=== PATIENT | male | born 1960 | race Caucasian/White ===

== ENCOUNTER 2022-06-30 01:02 | Inpatient (IN) | payer BC, SELFPAY ==
[2022-06-30] MEDS ORDERED: Cefepime 2 GM VIAL ONE (01:42)
[2022-06-30 01:44] LABS: #Lymphocytes 0.5 thou/uL (1.20-3.40); #Monocytes 0.3 thou/uL (0.11-0.59); #Neutrophils 3.3 thou/uL (1.40-6.50); %Lymphocytes 11.2 % (21.0-51.0); %Monocytes 6.2 % (0.0-10.0); %Neutrophils 82.6 % (42.0-75.0); Hemoglobin 12.9 g/dL (14.0-18.0); Mean Corpuscular HGB CONC 32.7 g/dL (32.0-36.0); Mean Corpuscular Hemoglobin 30.7 pg (27.0-31.0); Mean Corpuscular Volume 93.8 fl (78.0-98.0); Mean Platelet Volume 9.3 fL (7.4-10.4); Platelet Count 219 10x3/uL (130-400); RBC Distribution Width 17.9 % (11.5-14.5)
[2022-06-30 02:02] LABS: Analyzer IN Cardio ER; Base Excess (BEa) -12.5 mEq/L (-2.0 to +3.0); Calcium, Ionized (arterial) 1.14 mmol/L (1.12-1.30); Carboxyhemoglobin (COHb) 0.1 gm% (0.0-3.0); Hemoglobin (Hb) 12.6 g/dL (14.0-18.0); O2 Tension (PaO2), arterial 72.2 mmHg (> 80.0); Potassium - ABG Lab 4.93 mmol/L (3.70-5.30); pH, Arterial 7.32 (7.35-7.45)
[2022-06-30 02:04] LABS: ALV-art Gradient 183.875 mmHg (0-20); Actual Bicarbonate (HCO3a) 11.7 mEq/L (22-28); CO2 Tension 23.3 mmHg (35.0-45.0); Puncture Site LRA
[2022-06-30 02:05] LABS: ALT (SGPT) 7 U/L (8-55); AST (SGOT) 16 U/L (5-34); Albumin 3.1 g/dL (3.4-4.8); Alkaline Phosphatase 59 U/L (40-110); Anion Gap 20 mmol/L (10-20); BUN (Urea Nitrogen) 103 mg/dL (8.4-25.7); Bilirubin, Total 0.7 mg/dL (0.2-1.2); Calc. Creatinine Clearance 0 mL/min (70-130); Calcium 8.2 mg/dL (7.8-10.44); Carbon Dioxide 13 mmol/L (23-31); Chloride 104 mmol/L (98-107); Estimated GFR 11; Globulin 2.5 g/dL (2.4-3.5); Glucose 210 mg/dL (80-115); Potassium 5.8 mmol/L (3.5-5.1); Protein, Total 5.6 g/dL (5.8-8.1); Sodium 131 mmol/L (136-145)
[2022-06-30 02:35] LABS: CKMB 4.4 ng/mL (0-6.6)
[2022-06-30] MEDS ORDERED: Aspirin Chewable 81 MG TAB ONE (02:47)
[2022-06-30] MEDS ORDERED: Insulin Regular 300 UNITS/3 ML VIAL ONE (03:21)
[2022-06-30] MEDS ORDERED: Vancomycin 1 GM/200 ML (FROZEN) BAG ONE (03:21)
[2022-06-30] MEDS ORDERED: Calcium Chloride 1 GM/10 ML Abboject SYRINGE ONE (03:21)
[2022-06-30] MEDS ORDERED: Ondansetron PF 4 MG/2 ML Vial IVP PRN (03:47)
[2022-06-30] MEDS ORDERED: Insulin Regular 300 UNITS/3 ML VIAL SC PRN (03:51)
[2022-06-30] MEDS ORDERED: Dextrose 50% Abboject 50 ML SYRINGE SLOW IVP PRN (03:51)
[2022-06-30] MEDS ORDERED: Dextrose 5% in Water 1,000 ML IV PRN (03:51)
[2022-06-30] MEDS ORDERED: HumaLOG 300 UNITS/3 ML VIAL SC PRN (03:51)
[2022-06-30] MEDS ORDERED: Sodium Bicarb 50 MEQ/50 ML Abboject 8.4% SYRINGE IVP SCH (04:30)
[2022-06-30] MEDS ORDERED: Sodium Bicarb 50 MEQ/50 ML VIAL IVP SCH (04:45)
[2022-06-30] MEDS: Dexamethasone 10 MG/ML VIAL SLOW IVP SCH ×2 (05:16→18:51)
[2022-06-30 05:42] VITALS: BMI 28.8
[2022-06-30 06:08] LABS: Troponin I 3.261 ng/mL (< 0.028)
[2022-06-30] MEDS: Sodium Bicarbonate 150 MEQ in Sodium Chloride 0.45% 1,000 ML IV SCH ×2 (06:15→20:04)
[2022-06-30] MEDS ORDERED: Tacrolimus 1 MG CAP PO SCH (09:00)
[2022-06-30 09:37] LABS: Anion Gap 16 mmol/L (10-20); BUN (Urea Nitrogen) 94 mg/dL (8.4-25.7); Calc. Creatinine Clearance 23 mL/min (70-130); Calcium 8.3 mg/dL (7.8-10.44); Carbon Dioxide 16 mmol/L (23-31); Chloride 107 mmol/L (98-107); Estimated GFR 13; Glucose 137 mg/dL (80-115); Sodium 134 mmol/L (136-145)
[2022-06-30] MEDS: Heparin 5,000 UNITS/ML VIAL SC SCH ×3 (09:40→20:05)
[2022-06-30 10:14] LABS: Troponin I 4.611 ng/mL (< 0.028)
[2022-06-30] MEDS ORDERED: Furosemide 40 MG/4 ML VIAL SLOW IVP SCH (14:15)
[2022-06-30 17:39] LABS: HBSAg Index 0.51 S/CO (0-0.99); Hep B Surf Ag Non-Reactive S/CO (NonReactive)
[2022-06-30 17:44] LABS: HBSAB Concentration 32.06 mIU/mL; Hep B Surf AB Reactive (NonReactive)
[2022-06-30] MEDS: Tacrolimus 1 MG CAP PO SCH (20:04)
[2022-06-30] MEDS: azaTHIOprine 50 MG TAB PO SCH (20:05)
[2022-06-30] MEDS: Rosuvastatin 20 MG TAB PO SCH (20:05)
[2022-07-01] MEDS: Acetaminophen 325 MG TAB PO PRN ×2 (00:32→11:51)
[2022-07-01] MEDS: Dexamethasone 10 MG/ML VIAL SLOW IVP SCH (06:37)
[2022-07-01 06:55] LABS: Hemoglobin 12.5 g/dL (14.0-18.0); Mean Corpuscular Hemoglobin 29.3 pg (27.0-31.0); Mean Corpuscular Volume 94.4 fl (78.0-98.0); Mean Platelet Volume 9.9 fL (7.4-10.4); Platelet Count 244 10x3/uL (130-400); RBC Distribution Width 18.2 % (11.5-14.5); Red Blood Cell (RBC) Count 4.26 mill/uL (4.70-6.10); White Blood Cell (WBC) Count 4.6 10x3/uL (4.8-10.8)
[2022-07-01 07:20] LABS: ALT (SGPT) 7 U/L (8-55); AST (SGOT) 16 U/L (5-34); Albumin 2.7 g/dL (3.4-4.8); Alkaline Phosphatase 50 U/L (40-110); Anion Gap 23 mmol/L (10-20); BUN (Urea Nitrogen) 83 mg/dL (8.4-25.7); Bilirubin, Total 0.7 mg/dL (0.2-1.2); Calc. Creatinine Clearance 28 mL/min (70-130); Calcium 8.5 mg/dL (7.8-10.44); Carbon Dioxide 16 mmol/L (23-31); Chloride 101 mmol/L (98-107); Estimated GFR 16; Glucose 349 mg/dL (80-115); Potassium 4.6 mmol/L (3.5-5.1); Protein, Total 5.7 g/dL (5.8-8.1); Sodium 135 mmol/L (136-145)
[2022-07-01] MEDS: Clopidogrel Bisulfate 75 MG TAB PO SCH (08:05)
[2022-07-01] MEDS: azaTHIOprine 50 MG TAB PO SCH ×2 (08:05→21:27)
[2022-07-01] MEDS: Heparin 5,000 UNITS/ML VIAL SC SCH ×3 (08:05→21:27)
[2022-07-01] MEDS: Tacrolimus 1 MG CAP PO SCH ×2 (08:05→21:26)
[2022-07-01 08:19] LABS: Band 13 % (5-11); Hypochromia SLIGHT = 6-15 cells (100X) (0-5/hpf); Lymphocytes 5 % (21-51); MDiff Complete? YES; Monocytes 2 % (0-10); Neutrophil 79 % (42-75); Ovalocytes SLIGHT = 2-5 cells (100X) (0-1/hpf); Platelet Morphology Comment Appears Adequate; Polychromasia SLIGHT = 2-3 cells (100X) (0-2/hpf); Reactive Lymphocytes 1 % (0-10); Schistocytes SLIGHT = 2-5 cells (100X) (0-1/hpf); Tear Drops SLIGHT = 2-5 cells (100X) (0-1/hpf)
[2022-07-01] MEDS: Sodium Bicarbonate 150 MEQ in Sodium Chloride 0.45% 1,000 ML IV SCH ×2 (10:18→14:08)
[2022-07-01] MEDS ORDERED: Heparin 10,000 UNITS/ 10 ML VIAL ONE (10:39)
[2022-07-01] MEDS ORDERED: Dextrose 50% Abboject 50 ML SYRINGE SLOW IVP PRN (11:41)
[2022-07-01] MEDS ORDERED: Dextrose 5% in Water 1,000 ML IV PRN (11:41)
[2022-07-01] MEDS: HumaLOG 300 UNITS/3 ML VIAL SC PRN ×2 (11:56→16:47)
[2022-07-01] MEDS ORDERED: Insulin Glargine 30 UNITS/0.3 ML VIAL SC SCH (12:00)
[2022-07-01] MEDS ORDERED: Gabapentin 300 MG CAP PO SCH (21:00)
[2022-07-01] MEDS: Gabapentin 300 MG CAP PO SCH (21:25)
[2022-07-01] MEDS: traMADol HCl 50 MG TAB PO PRN (21:26)
[2022-07-01] MEDS: Rosuvastatin 20 MG TAB PO SCH (21:26)
[2022-07-01] MEDS ORDERED: HumaLOG 300 UNITS/3 ML VIAL SC PRN (22:08)
[2022-07-01] MEDS: Melatonin 3 MG TAB PO PRN (23:35)
[2022-07-02] MEDS: HumaLOG 300 UNITS/3 ML VIAL SC PRN ×2 (06:28→11:27)
[2022-07-02 08:37] LABS: #Lymphocytes 0.3 thou/uL (1.20-3.40); #Monocytes 0.2 thou/uL (0.11-0.59); #Neutrophils 2.4 thou/uL (1.40-6.50); %Eosinophils 0.2 % (0.0-10.0); %Lymphocytes 11.5 % (21.0-51.0); %Monocytes 6.6 % (0.0-10.0); %Neutrophils 81.7 % (42.0-75.0); Hemoglobin 12.3 g/dL (14.0-18.0); Mean Corpuscular HGB CONC 31.9 g/dL (32.0-36.0); Mean Corpuscular Hemoglobin 30.7 pg (27.0-31.0); Mean Corpuscular Volume 96.4 fl (78.0-98.0); Platelet Count 264 10x3/uL (130-400); RBC Distribution Width 18.1 % (11.5-14.5)
[2022-07-02 08:55] LABS: ALT (SGPT) 9 U/L (8-55); AST (SGOT) 17 U/L (5-34); Albumin 2.7 g/dL (3.4-4.8); Alkaline Phosphatase 48 U/L (40-110); Anion Gap 22 mmol/L (10-20); BUN (Urea Nitrogen) 68 mg/dL (8.4-25.7); Bilirubin, Total 0.7 mg/dL (0.2-1.2); Calc. Creatinine Clearance 34 mL/min (70-130); Calcium 8.5 mg/dL (7.8-10.44); Carbon Dioxide 18 mmol/L (23-31); Chloride 99 mmol/L (98-107); Estimated GFR 21; Glucose 371 mg/dL (80-115); Potassium 4.3 mmol/L (3.5-5.1); Protein, Total 5.7 g/dL (5.8-8.1); Sodium 135 mmol/L (136-145)
[2022-07-02] MEDS ORDERED: Dexamethasone 10 MG/ML VIAL SLOW IVP SCH (09:00)
[2022-07-02] MEDS ORDERED: Insulin Glargine 30 UNITS/0.3 ML VIAL SC SCH (09:00)
[2022-07-02] MEDS: azaTHIOprine 50 MG TAB PO SCH ×2 (09:26→21:37)
[2022-07-02] MEDS: Tacrolimus 1 MG CAP PO SCH ×2 (09:26→21:37)
[2022-07-02] MEDS: Clopidogrel Bisulfate 75 MG TAB PO SCH (09:27)
[2022-07-02] MEDS: Dexamethasone 10 MG/ML VIAL SLOW IVP SCH (09:28)
[2022-07-02] MEDS: Heparin 5,000 UNITS/ML VIAL SC SCH ×3 (09:28→21:18)
[2022-07-02] MEDS: Sodium Bicarbonate 150 MEQ in Sodium Chloride 0.45% 1,000 ML IV SCH (09:28)
[2022-07-02] MEDS ORDERED: Heparin 10,000 UNITS/ 10 ML VIAL ONE (10:37)
[2022-07-02 11:43] LABS: Magnesium 1.8 mg/dL (1.6-2.6)
[2022-07-02] MEDS ORDERED: Magnesium 2 GM/50 ML(in water) 2 GM in Premix Bag 1 BAG IVPB SCH (13:00)
[2022-07-02] MEDS: traMADol HCl 50 MG TAB PO PRN (16:28)
[2022-07-02] MEDS ORDERED: Ondansetron ODT 4 MG TAB PO PRN (21:17)
[2022-07-02] MEDS: Ondansetron PF 4 MG/2 ML Vial IVP PRN (21:25)
[2022-07-02] MEDS: Rosuvastatin 20 MG TAB PO SCH (21:36)
[2022-07-02] MEDS: Gabapentin 300 MG CAP PO SCH (21:37)
[2022-07-02] MEDS: Melatonin 3 MG TAB PO PRN (21:47)
[2022-07-03] MEDS: HumaLOG 300 UNITS/3 ML VIAL SC PRN ×3 (06:36→18:09)
[2022-07-03] MEDS: Sodium Bicarbonate 150 MEQ in Sodium Chloride 0.45% 1,000 ML IV SCH ×2 (08:36→19:17)
[2022-07-03] MEDS: Dexamethasone 10 MG/ML VIAL SLOW IVP SCH (08:37)
[2022-07-03] MEDS: Insulin Glargine 30 UNITS/0.3 ML VIAL SC SCH ×2 (08:37→20:54)
[2022-07-03] MEDS: Heparin 5,000 UNITS/ML VIAL SC SCH ×3 (08:39→20:36)
[2022-07-03] MEDS: azaTHIOprine 50 MG TAB PO SCH ×2 (08:39→20:30)
[2022-07-03] MEDS: Tacrolimus 1 MG CAP PO SCH ×2 (08:39→20:30)
[2022-07-03] MEDS: Clopidogrel Bisulfate 75 MG TAB PO SCH (08:39)
[2022-07-03 09:31] LABS: #Lymphocytes 0.3 thou/uL (1.20-3.40); #Monocytes 0.2 thou/uL (0.11-0.59); #Neutrophils 2.3 thou/uL (1.40-6.50); %Basophils 0.4 % (0.0-1.0); %Eosinophils 0.3 % (0.0-10.0); %Lymphocytes 10.1 % (21.0-51.0); %Monocytes 7.5 % (0.0-10.0); %Neutrophils 81.6 % (42.0-75.0); Hemoglobin 12.8 g/dL (14.0-18.0); Mean Corpuscular Hemoglobin 29.1 pg (27.0-31.0); Mean Corpuscular Volume 93.8 fl (78.0-98.0); Mean Platelet Volume 9.1 fL (7.4-10.4); Platelet Count 238 10x3/uL (130-400); RBC Distribution Width 17.7 % (11.5-14.5); Red Blood Cell (RBC) Count 4.39 mill/uL (4.70-6.10); White Blood Cell (WBC) Count 2.8 10x3/uL (4.8-10.8)
[2022-07-03 09:45] LABS: ALT (SGPT) 8 U/L (8-55); AST (SGOT) 16 U/L (5-34); Alkaline Phosphatase 52 U/L (40-110); Anion Gap 16 mmol/L (10-20); BUN (Urea Nitrogen) 44 mg/dL (8.4-25.7); Bilirubin, Total 0.9 mg/dL (0.2-1.2); Calc. Creatinine Clearance 47 mL/min (70-130); Calcium 8.6 mg/dL (7.8-10.44); Carbon Dioxide 25 mmol/L (23-31); Chloride 98 mmol/L (98-107); Estimated GFR 30; Glucose 308 mg/dL (80-115); Magnesium 2.1 mg/dL (1.6-2.6); Potassium 3.9 mmol/L (3.5-5.1); Sodium 135 mmol/L (136-145)
[2022-07-03] MEDS: traMADol HCl 50 MG TAB PO PRN (20:29)
[2022-07-03] MEDS: Gabapentin 300 MG CAP PO SCH (20:30)
[2022-07-03] MEDS: Melatonin 3 MG TAB PO PRN (20:30)
[2022-07-03] MEDS: Rosuvastatin 20 MG TAB PO SCH (20:30)
[2022-07-03] MEDS: Ondansetron PF 4 MG/2 ML Vial IVP PRN (20:38)
[2022-07-04 04:58] LABS: #Lymphocytes 0.2 thou/uL (1.20-3.40); #Monocytes 0.2 thou/uL (0.11-0.59); #Neutrophils 2.3 thou/uL (1.40-6.50); %Basophils 1.7 % (0.0-1.0); %Eosinophils 0.1 % (0.0-10.0); %Lymphocytes 7.8 % (21.0-51.0); %Monocytes 5.3 % (0.0-10.0); %Neutrophils 85.1 % (42.0-75.0); Hemoglobin 12.7 g/dL (14.0-18.0); Mean Corpuscular HGB CONC 30.4 g/dL (32.0-36.0); Mean Corpuscular Hemoglobin 29.5 pg (27.0-31.0); Mean Platelet Volume 9.3 fL (7.4-10.4); Platelet Count 218 10x3/uL (130-400); RBC Distribution Width 17.7 % (11.5-14.5); Red Blood Cell (RBC) Count 4.31 mill/uL (4.70-6.10); White Blood Cell (WBC) Count 2.7 10x3/uL (4.8-10.8)
[2022-07-04 05:13] LABS: Anion Gap 15 mmol/L (10-20); BUN (Urea Nitrogen) 49 mg/dL (8.4-25.7); Calc. Creatinine Clearance 46 mL/min (70-130); Calcium 8.8 mg/dL (7.8-10.44); Carbon Dioxide 25 mmol/L (23-31); Chloride 97 mmol/L (98-107); Estimated GFR 29; Glucose 250 mg/dL (80-115); Magnesium 1.8 mg/dL (1.6-2.6); Potassium 4.2 mmol/L (3.5-5.1); Sodium 133 mmol/L (136-145)
[2022-07-04] MEDS: HumaLOG 300 UNITS/3 ML VIAL SC PRN ×2 (06:13→17:52)
[2022-07-04] MEDS: Tacrolimus 1 MG CAP PO SCH ×2 (09:39→21:17)
[2022-07-04] MEDS: Insulin Glargine 30 UNITS/0.3 ML VIAL SC SCH ×2 (09:39→21:18)
[2022-07-04] MEDS: Clopidogrel Bisulfate 75 MG TAB PO SCH (09:39)
[2022-07-04] MEDS: azaTHIOprine 50 MG TAB PO SCH ×2 (09:39→21:17)
[2022-07-04] MEDS: Dexamethasone 10 MG/ML VIAL SLOW IVP SCH (09:40)
[2022-07-04] MEDS: Heparin 5,000 UNITS/ML VIAL SC SCH ×3 (09:40→21:18)
[2022-07-04] MEDS: traMADol HCl 50 MG TAB PO PRN (17:56)
[2022-07-04] MEDS: Gabapentin 300 MG CAP PO SCH (21:17)
[2022-07-04] MEDS: Rosuvastatin 20 MG TAB PO SCH (21:17)
[2022-07-04] MEDS ORDERED: Magnesium 2 GM/50 ML(in water) 2 GM in Premix Bag 1 BAG IVPB SCH (21:45)
[2022-07-04] MEDS: hydrALAZINE 25 MG TAB PO SCH (22:02)
[2022-07-05 04:55] LABS: #Lymphocytes 0.3 thou/uL (1.20-3.40); #Monocytes 0.1 thou/uL (0.11-0.59); #Neutrophils 3.7 thou/uL (1.40-6.50); %Eosinophils 0.2 % (0.0-10.0); %Lymphocytes 6.9 % (21.0-51.0); %Monocytes 2.5 % (0.0-10.0); %Neutrophils 90.4 % (42.0-75.0); Mean Corpuscular HGB CONC 30.9 g/dL (32.0-36.0); Mean Corpuscular Hemoglobin 29.7 pg (27.0-31.0); Mean Corpuscular Volume 96.3 fl (78.0-98.0); Mean Platelet Volume 9.7 fL (7.4-10.4); Platelet Count 199 10x3/uL (130-400); RBC Distribution Width 17.3 % (11.5-14.5); Red Blood Cell (RBC) Count 4.04 mill/uL (4.70-6.10); White Blood Cell (WBC) Count 4.1 10x3/uL (4.8-10.8)
[2022-07-05 05:17] LABS: ALT (SGPT) Less than 7 U/L (8-55); AST (SGOT) 13 U/L (5-34); Albumin 2.8 g/dL (3.4-4.8); Alkaline Phosphatase 49 U/L (40-110); Anion Gap 14 mmol/L (10-20); BUN (Urea Nitrogen) 54 mg/dL (8.4-25.7); Calc. Creatinine Clearance 40 mL/min (70-130); Calcium 8.9 mg/dL (7.8-10.44); Carbon Dioxide 23 mmol/L (23-31); Chloride 98 mmol/L (98-107); Estimated GFR 25; Globulin 2.8 g/dL (2.4-3.5); Glucose 240 mg/dL (80-115); Magnesium 2.2 mg/dL (1.6-2.6); Phosphorus 3.7 mg/dL (2.3-4.7); Potassium 4.4 mmol/L (3.5-5.1); Protein, Total 5.6 g/dL (5.8-8.1); Sodium 131 mmol/L (136-145)
[2022-07-05] MEDS: hydrALAZINE 25 MG TAB PO SCH ×3 (06:09→21:24)
[2022-07-05] MEDS: HumaLOG 300 UNITS/3 ML VIAL SC PRN (06:11)
[2022-07-05] MEDS: Dexamethasone 10 MG/ML VIAL SLOW IVP SCH (09:07)
[2022-07-05] MEDS: azaTHIOprine 50 MG TAB PO SCH ×2 (09:09→21:27)
[2022-07-05] MEDS: Tacrolimus 1 MG CAP PO SCH ×2 (09:09→21:24)
[2022-07-05 09:10] LABS: Troponin I 0.649 ng/mL (< 0.028)
[2022-07-05] MEDS: Clopidogrel Bisulfate 75 MG TAB PO SCH (09:10)
[2022-07-05] MEDS: Insulin Glargine 30 UNITS/0.3 ML VIAL SC SCH ×2 (09:10→21:22)
[2022-07-05] MEDS: predniSONE 5 MG/5 ML UDCUP PO SCH (09:10)
[2022-07-05] MEDS: HumaLOG 300 UNITS/3 ML VIAL SC SCH ×3 (09:10→17:01)
[2022-07-05] MEDS: Heparin 5,000 UNITS/ML VIAL SC SCH ×3 (09:11→21:22)
[2022-07-05] MEDS ORDERED: Aspirin 81 mg Enteric Coated Tablet PO SCH (11:00)
[2022-07-05] MEDS ORDERED: Amiodarone 200 MG TAB PO SCH (11:00)
[2022-07-05] MEDS: Carvedilol 6.25 MG TAB PO SCH (17:00)
[2022-07-05] MEDS: Rosuvastatin 20 MG TAB PO SCH (21:24)
[2022-07-05] MEDS: Amiodarone 200 MG TAB PO SCH (21:24)
[2022-07-05] MEDS: Gabapentin 300 MG CAP PO SCH (21:25)
[2022-07-06] MEDS: traMADol HCl 50 MG TAB PO PRN (02:32)
[2022-07-06 04:43] LABS: #Lymphocytes 0.2 thou/uL (1.20-3.40); #Monocytes 0.1 thou/uL (0.11-0.59); #Neutrophils 3.5 thou/uL (1.40-6.50); %Basophils 0.2 % (0.0-1.0); %Eosinophils 0.2 % (0.0-10.0); %Lymphocytes 5.1 % (21.0-51.0); %Monocytes 3.1 % (0.0-10.0); %Neutrophils 91.4 % (42.0-75.0); Hemoglobin 11.8 g/dL (14.0-18.0); Mean Corpuscular HGB CONC 31.4 g/dL (32.0-36.0); Mean Corpuscular Volume 95.5 fl (78.0-98.0); Mean Platelet Volume 9.7 fL (7.4-10.4); Platelet Count 191 10x3/uL (130-400); Red Blood Cell (RBC) Count 3.92 mill/uL (4.70-6.10); White Blood Cell (WBC) Count 3.8 10x3/uL (4.8-10.8)
[2022-07-06 05:05] LABS: Anion Gap 17 mmol/L (10-20); BUN (Urea Nitrogen) 64 mg/dL (8.4-25.7); Calc. Creatinine Clearance 37 mL/min (70-130); Calcium 8.9 mg/dL (7.8-10.44); Carbon Dioxide 21 mmol/L (23-31); Chloride 98 mmol/L (98-107); Estimated GFR 23; Glucose 276 mg/dL (80-115); Magnesium 2.2 mg/dL (1.6-2.6); Potassium 4.6 mmol/L (3.5-5.1); Sodium 131 mmol/L (136-145)
[2022-07-06] MEDS: hydrALAZINE 25 MG TAB PO SCH ×3 (05:51→22:06)
[2022-07-06] MEDS: Carvedilol 6.25 MG TAB PO SCH ×2 (05:52→17:56)
[2022-07-06] MEDS: HumaLOG 300 UNITS/3 ML VIAL SC PRN ×2 (05:52→11:29)
[2022-07-06] MEDS: Amiodarone 200 MG TAB PO SCH ×2 (09:18→22:02)
[2022-07-06] MEDS: Tacrolimus 1 MG CAP PO SCH ×2 (09:18→22:11)
[2022-07-06] MEDS: Aspirin 81 mg Enteric Coated Tablet PO SCH (09:18)
[2022-07-06] MEDS: Dexamethasone 10 MG/ML VIAL SLOW IVP SCH (09:18)
[2022-07-06] MEDS: azaTHIOprine 50 MG TAB PO SCH ×2 (09:18→22:04)
[2022-07-06] MEDS: Heparin 5,000 UNITS/ML VIAL SC SCH ×3 (09:19→22:05)
[2022-07-06] MEDS: HumaLOG 300 UNITS/3 ML VIAL SC SCH ×3 (09:19→17:56)
[2022-07-06] MEDS: predniSONE 5 MG/5 ML UDCUP PO SCH (09:19)
[2022-07-06] MEDS: Insulin Glargine 30 UNITS/0.3 ML VIAL SC SCH ×2 (09:19→22:09)
[2022-07-06] MEDS ORDERED: Heparin 10,000 UNITS/ 10 ML VIAL ONE (12:20)
[2022-07-06] MEDS: Ondansetron PF 4 MG/2 ML Vial IVP PRN (17:44)
[2022-07-06] MEDS: Gabapentin 300 MG CAP PO SCH (22:05)
[2022-07-06] MEDS: Rosuvastatin 20 MG TAB PO SCH (22:11)
[2022-07-06] MEDS: Acetaminophen 325 MG TAB PO PRN (22:22)
[2022-07-07 04:12] LABS: Hemoglobin 11.5 g/dL (14.0-18.0); Mean Corpuscular HGB CONC 31.1 g/dL (32.0-36.0); Mean Corpuscular Hemoglobin 29.8 pg (27.0-31.0); Mean Corpuscular Volume 95.7 fl (78.0-98.0); Mean Platelet Volume 9.8 fL (7.4-10.4); Platelet Count 178 10x3/uL (130-400); Red Blood Cell (RBC) Count 3.86 mill/uL (4.70-6.10); White Blood Cell (WBC) Count 3.7 10x3/uL (4.8-10.8)
[2022-07-07 04:21] LABS: Anion Gap 15 mmol/L (10-20); BUN (Urea Nitrogen) 35 mg/dL (8.4-25.7); Calc. Creatinine Clearance 54 mL/min (70-130); Calcium 8.3 mg/dL (7.8-10.44); Carbon Dioxide 24 mmol/L (23-31); Chloride 99 mmol/L (98-107); Estimated GFR 36; Glucose 186 mg/dL (80-115); Sodium 134 mmol/L (136-145)
[2022-07-07 04:46] LABS: Anisocytosis SLIGHT = 6-15 cells (100X) (0-5/hpf); Band 4 % (5-11); Burr Cells SLIGHT = 2-5 cells (100X) (0-1/hpf); Hypochromia SLIGHT = 6-15 cells (100X) (0-5/hpf); Lymphocytes 6 % (21-51); MDiff Complete? YES; Monocytes 10 % (0-10); Neutrophil 80 % (42-75); Platelet Morphology Comment Appears Adequate; Polychromasia SLIGHT = 2-3 cells (100X) (0-2/hpf)
[2022-07-07] MEDS: hydrALAZINE 25 MG TAB PO SCH ×3 (05:37→22:48)
[2022-07-07] MEDS: Carvedilol 6.25 MG TAB PO SCH ×2 (05:37→18:19)
[2022-07-07] MEDS: azaTHIOprine 50 MG TAB PO SCH ×2 (08:25→22:46)
[2022-07-07] MEDS: Aspirin 81 mg Enteric Coated Tablet PO SCH (08:25)
[2022-07-07] MEDS: Amiodarone 200 MG TAB PO SCH ×2 (08:25→22:46)
[2022-07-07] MEDS: Dexamethasone 10 MG/ML VIAL SLOW IVP SCH (08:26)
[2022-07-07] MEDS: Tacrolimus 1 MG CAP PO SCH ×2 (08:26→22:48)
[2022-07-07] MEDS: Heparin 5,000 UNITS/ML VIAL SC SCH ×3 (08:26→22:47)
[2022-07-07] MEDS: HumaLOG 300 UNITS/3 ML VIAL SC SCH ×3 (08:26→18:19)
[2022-07-07] MEDS: Insulin Glargine 30 UNITS/0.3 ML VIAL SC SCH ×2 (08:26→22:47)
[2022-07-07] MEDS: Benzonatate 100 MG CAP PO SCH (22:47)
[2022-07-07] MEDS: Gabapentin 300 MG CAP PO SCH (22:47)
[2022-07-07] MEDS ORDERED: Tuberculin PPD 0.1 ML VIAL I-DERMAL SCH (23:00)
[2022-07-07] MEDS: Rosuvastatin 20 MG TAB PO SCH (23:10)
[2022-07-07] MEDS ORDERED: Aluminum & Magnesium Hydroxide 60 ML, diphenhydrAMINE 150 MG, Lidocaine 2% Viscous Solu... SSW PRN (23:31)
[2022-07-08 04:45] LABS: #Lymphocytes 0.3 thou/uL (1.20-3.40); #Monocytes 0.3 thou/uL (0.11-0.59); #Neutrophils 3.1 thou/uL (1.40-6.50); %Eosinophils 0.2 % (0.0-10.0); %Lymphocytes 7.2 % (21.0-51.0); %Monocytes 9.2 % (0.0-10.0); %Neutrophils 83.4 % (42.0-75.0); Hemoglobin 11.2 g/dL (14.0-18.0); Mean Corpuscular HGB CONC 32.6 g/dL (32.0-36.0); Mean Corpuscular Hemoglobin 30.6 pg (27.0-31.0); Mean Corpuscular Volume 93.9 fl (78.0-98.0); Mean Platelet Volume 10.3 fL (7.4-10.4); Platelet Count 191 10x3/uL (130-400); Red Blood Cell (RBC) Count 3.65 mill/uL (4.70-6.10); White Blood Cell (WBC) Count 3.7 10x3/uL (4.8-10.8)
[2022-07-08 05:02] LABS: Anion Gap 16 mmol/L (10-20); BUN (Urea Nitrogen) 50 mg/dL (8.4-25.7); Calc. Creatinine Clearance 36 mL/min (70-130); Calcium 8.3 mg/dL (7.8-10.44); Carbon Dioxide 21 mmol/L (23-31); Chloride 100 mmol/L (98-107); Estimated GFR 22; Glucose 153 mg/dL (80-115); Potassium 4.1 mmol/L (3.5-5.1); Sodium 133 mmol/L (136-145)
[2022-07-08] MEDS: Carvedilol 6.25 MG TAB PO SCH (06:44)
[2022-07-08] MEDS: hydrALAZINE 25 MG TAB PO SCH (06:45)
[2022-07-08] MEDS: Heparin 5,000 UNITS/ML VIAL SC SCH (08:21)
[2022-07-08] MEDS: Benzonatate 100 MG CAP PO SCH ×2 (08:21→12:47)
[2022-07-08] MEDS: Insulin Glargine 30 UNITS/0.3 ML VIAL SC SCH (08:21)
[2022-07-08] MEDS: HumaLOG 300 UNITS/3 ML VIAL SC SCH ×2 (08:21→12:40)
[2022-07-08] MEDS: Aspirin 81 mg Enteric Coated Tablet PO SCH (08:21)
[2022-07-08] MEDS: Amiodarone 200 MG TAB PO SCH (08:21)
[2022-07-08] MEDS ORDERED: Heparin 10,000 UNITS/ 10 ML VIAL ONE (12:14)
[2022-07-08 12:33] VITALS: BP 126/65; TEMP 97.6
[2022-07-08] MEDS: Dexamethasone 10 MG/ML VIAL SLOW IVP SCH (12:40)
[2022-07-08] MEDS: Tacrolimus 1 MG CAP PO SCH (12:47)
[2022-07-08] MEDS: azaTHIOprine 50 MG TAB PO SCH (12:47)
[2022-07-09] MEDS ORDERED: READ PPD TEST SITE PO SCH (23:00)
== END 2022-07-08 13:31 | disposition home health service (06) | DRG 177 ==
LOC: ERS 01:02 → IMCU/EMU 03:18 → 2NO 07-01 18:27
PROVIDERS: ADMIT Internal Medicine; ATTEND Internal Medicine
PROC: 5A09357 Assistance with Respiratory Ventilation, Less than 24 Consecutive Hours, Continuous Positive Airway Pressure (ICD-10-PCS; principal; 2022-06-30)
PROC: 8E0ZXY6 Isolation (ICD-10-PCS; 2022-06-30)
DX: U07.1 COVID-19 (principal); I21.A1 Myocardial infarction type 2; J96.01 Acute respiratory failure with hypoxia; I50.43 Acute on chronic combined systolic (congestive) and diastolic (congestive) heart failure; I47.20 Ventricular tachycardia, unspecified; N17.9 Acute kidney failure, unspecified; N18.4 Chronic kidney disease, stage 4 (severe); T86.19 Other complication of kidney transplant; E87.20 Acidosis, unspecified; I13.0 Hypertensive heart and chronic kidney disease with heart failure and stage 1 through stage 4 chronic kidney disease, or unspecified chronic kidney disease; I25.10 Atherosclerotic heart disease of native coronary artery without angina pectoris; E87.5 Hyperkalemia; E11.22 Type 2 diabetes mellitus with diabetic chronic kidney disease; E11.43 Type 2 diabetes mellitus with diabetic autonomic (poly)neuropathy; K31.84 Gastroparesis; D63.1 Anemia in chronic kidney disease; Y83.0 Surgical operation with transplant of whole organ as the cause of abnormal reaction of the patient, or of later complication, without mention of misadventure at the time of the procedure; Z96.641 Presence of right artificial hip joint; E11.51 Type 2 diabetes mellitus with diabetic peripheral angiopathy without gangrene; I08.1 Rheumatic disorders of both mitral and tricuspid valves; J20.8 Acute bronchitis due to other specified organisms; I25.5 Ischemic cardiomyopathy; Z89.512 Acquired absence of left leg below knee; Z95.1 Presence of aortocoronary bypass graft; Z95.5 Presence of coronary angioplasty implant and graft; Z79.899 Other long term (current) drug therapy; Z79.02 Long term (current) use of antithrombotics/antiplatelets
CPT/HCPCS: 36415; 36416; 36600; 71045; 80048; 80053; 80197; 82553; 82805; 83605; 83735; 83880; 84100; 84145; 84443; 84484; 85025; 86140; 86580; 86706; 87040; 87340; 90935; 93005; 93306; 94660; 96365; 96366; 96368; 96375; G0257; J0692; J1100; J1644; J1815; J1940; J1956; J2405; J3370-JW; J3475; J7500; J7507; J7512; Q0163

== ENCOUNTER 2022-07-09 04:47 | Inpatient (IN) | payer BC ==
[2022-07-09] MEDS: Tacrolimus 1 MG CAP PO SCH ×2 (09:06→20:39)
[2022-07-09] MEDS: Rosuvastatin 20 MG TAB PO SCH (09:06)
[2022-07-09] MEDS: Aspirin 81 mg Enteric Coated Tablet PO SCH (09:06)
[2022-07-09] MEDS: Amiodarone 200 MG TAB PO SCH ×2 (09:07→20:40)
[2022-07-09] MEDS: Furosemide 80 MG TAB PO SCH (09:07)
[2022-07-09] MEDS: Heparin 5,000 UNITS/ML VIAL SC SCH ×3 (09:10→20:45)
[2022-07-09] MEDS: traMADol HCl 50 MG TAB PO PRN (13:36)
[2022-07-09] MEDS ORDERED: LORazepam 2 MG/ML SYR.(CARPUJECT) IVP PRN (17:45)
[2022-07-09] MEDS: Carvedilol 6.25 MG TAB PO SCH (17:47)
[2022-07-09] MEDS: Lorazepam 2 MG/ML VIAL SLOW IVP PRN (18:26)
[2022-07-09] MEDS: Insulin Glargine 30 UNITS/0.3 ML VIAL SC SCH (20:40)
[2022-07-09] MEDS: Gabapentin 300 MG CAP PO SCH (20:40)
[2022-07-09] MEDS ORDERED: Tuberculin PPD 0.1 ML VIAL I-DERMAL SCH (20:45)
[2022-07-10] MEDS: READ PPD TEST SITE PO SCH ×2 (02:43→21:23)
[2022-07-10] MEDS: Carvedilol 6.25 MG TAB PO SCH ×2 (05:48→18:09)
[2022-07-10 06:27] LABS: Anion Gap 15 mmol/L (10-20); BUN (Urea Nitrogen) 40 mg/dL (8.4-25.7); Calc. Creatinine Clearance 30 mL/min (70-130); Calcium 8.3 mg/dL (7.8-10.44); Carbon Dioxide 24 mmol/L (23-31); Chloride 102 mmol/L (98-107); Estimated GFR 18; Glucose 161 mg/dL (80-115); Potassium 3.8 mmol/L (3.5-5.1); Sodium 137 mmol/L (136-145)
[2022-07-10] MEDS: Gabapentin 300 MG CAP PO SCH ×2 (09:34→21:21)
[2022-07-10] MEDS: Aspirin 81 mg Enteric Coated Tablet PO SCH (09:34)
[2022-07-10] MEDS: Tacrolimus 1 MG CAP PO SCH ×2 (09:34→21:21)
[2022-07-10] MEDS: Amiodarone 200 MG TAB PO SCH ×2 (09:35→21:21)
[2022-07-10] MEDS: Rosuvastatin 20 MG TAB PO SCH (09:35)
[2022-07-10] MEDS: predniSONE 5 MG TAB PO SCH (09:35)
[2022-07-10] MEDS: Furosemide 80 MG TAB PO SCH (09:35)
[2022-07-10] MEDS: Insulin Glargine 30 UNITS/0.3 ML VIAL SC SCH ×2 (09:42→21:22)
[2022-07-10] MEDS: Heparin 5,000 UNITS/ML VIAL SC SCH ×3 (09:42→21:22)
[2022-07-10] MEDS ORDERED: Heparin 10,000 UNITS/ 10 ML VIAL ONE (12:23)
[2022-07-10] MEDS ORDERED: Ipratropium/Albuterol 3 ML NEB NEB PRN (12:40)
[2022-07-10] MEDS ORDERED: Ipratropium/Albuterol 3 ML NEB NEB SCH (12:45)
[2022-07-10] MEDS ORDERED: Senokot S 8.6-50 MG TAB PO SCH (13:00)
[2022-07-10] MEDS ORDERED: guaiFENesin/DM ER PO SCH (15:45)
[2022-07-10] MEDS: Senokot S 8.6-50 MG TAB PO SCH (21:21)
[2022-07-10] MEDS: Lorazepam 2 MG/ML VIAL SLOW IVP PRN (21:24)
[2022-07-10] MEDS: Chloraseptic Spray 180 ml Bottle PO PRN (21:38)
[2022-07-10] MEDS: Lidocaine Viscous Sol 2% 15 ml UD Cup SSW PRN (21:39)
[2022-07-11] MEDS: guaiFENesin/DM ER PO SCH ×2 (04:55→21:13)
[2022-07-11] MEDS: Carvedilol 6.25 MG TAB PO SCH ×2 (05:44→17:35)
[2022-07-11 05:50] LABS: #Lymphocytes 0.4 thou/uL (1.20-3.40); #Monocytes 0.4 thou/uL (0.11-0.59); #Neutrophils 2.9 thou/uL (1.40-6.50); %Lymphocytes 10.7 % (21.0-51.0); %Monocytes 10.6 % (0.0-10.0); %Neutrophils 77.6 % (42.0-75.0); Hemoglobin 11.8 g/dL (14.0-18.0); Mean Corpuscular HGB CONC 31.2 g/dL (32.0-36.0); Mean Corpuscular Hemoglobin 29.7 pg (27.0-31.0); Mean Corpuscular Volume 95.1 fl (78.0-98.0); Mean Platelet Volume 10.2 fL (7.4-10.4); Platelet Count 197 10x3/uL (130-400); RBC Distribution Width 17.3 % (11.5-14.5); Red Blood Cell (RBC) Count 3.99 mill/uL (4.70-6.10); White Blood Cell (WBC) Count 3.8 10x3/uL (4.8-10.8)
[2022-07-11 06:05] LABS: Anion Gap 14 mmol/L (10-20); BUN (Urea Nitrogen) 39 mg/dL (8.4-25.7); Calc. Creatinine Clearance 30 mL/min (70-130); Calcium 8.3 mg/dL (7.8-10.44); Carbon Dioxide 25 mmol/L (23-31); Chloride 97 mmol/L (98-107); Estimated GFR 18; Glucose 213 mg/dL (80-115); Potassium 3.6 mmol/L (3.5-5.1); Sodium 132 mmol/L (136-145)
[2022-07-11] MEDS: Heparin 5,000 UNITS/ML VIAL SC SCH ×3 (08:47→21:24)
[2022-07-11] MEDS: Lidocaine Viscous Sol 2% 15 ml UD Cup SSW PRN ×2 (08:47→15:46)
[2022-07-11] MEDS: Chloraseptic Spray 180 ml Bottle PO PRN ×3 (08:47→21:16)
[2022-07-11] MEDS: Insulin Glargine 30 UNITS/0.3 ML VIAL SC SCH ×2 (08:47→21:17)
[2022-07-11] MEDS: Aspirin 81 mg Enteric Coated Tablet PO SCH (08:48)
[2022-07-11] MEDS: predniSONE 5 MG TAB PO SCH (08:48)
[2022-07-11] MEDS: Tacrolimus 1 MG CAP PO SCH ×2 (08:48→21:14)
[2022-07-11] MEDS: Gabapentin 300 MG CAP PO SCH ×2 (08:48→21:13)
[2022-07-11] MEDS: Rosuvastatin 20 MG TAB PO SCH (08:49)
[2022-07-11] MEDS: Senokot S 8.6-50 MG TAB PO SCH ×2 (08:50→23:24)
[2022-07-11] MEDS: Furosemide 80 MG TAB PO SCH (08:50)
[2022-07-11] MEDS: Amiodarone 200 MG TAB PO SCH ×2 (08:50→21:12)
[2022-07-11] MEDS ORDERED: Heparin 10,000 UNITS/ 10 ML VIAL ONE (13:00)
[2022-07-11 13:39] LABS: Hep B Core Total Ab Non-Reactive (NonReactive); Hep B Core Total Index 0.08 S/CO (0-0.79)
[2022-07-11] MEDS: Aluminum & Magnesium Hydroxide 60 ML, Lidocaine 2% Viscous Solution 30 ML, diphenhydrAM... SSW PRN ×2 (18:43→21:15)
[2022-07-11] MEDS: traMADol HCl 50 MG TAB PO PRN (21:28)
[2022-07-12] MEDS: Lorazepam 2 MG/ML VIAL SLOW IVP PRN ×3 (04:32→21:47)
[2022-07-12] MEDS: Carvedilol 6.25 MG TAB PO SCH ×2 (05:25→21:27)
[2022-07-12] MEDS: Rosuvastatin 20 MG TAB PO SCH (09:47)
[2022-07-12] MEDS: Senokot S 8.6-50 MG TAB PO SCH ×2 (09:47→21:31)
[2022-07-12] MEDS: Tacrolimus 1 MG CAP PO SCH ×2 (09:48→21:31)
[2022-07-12] MEDS: predniSONE 5 MG TAB PO SCH (09:48)
[2022-07-12] MEDS: Aspirin 81 mg Enteric Coated Tablet PO SCH (09:48)
[2022-07-12] MEDS: guaiFENesin/DM ER PO SCH ×2 (09:48→21:30)
[2022-07-12] MEDS: Gabapentin 300 MG CAP PO SCH ×2 (09:48→21:29)
[2022-07-12] MEDS: Amiodarone 200 MG TAB PO SCH ×2 (09:48→21:29)
[2022-07-12] MEDS: Furosemide 80 MG TAB PO SCH (09:49)
[2022-07-12] MEDS: Heparin 5,000 UNITS/ML VIAL SC SCH ×3 (09:49→21:33)
[2022-07-12] MEDS: Insulin Glargine 30 UNITS/0.3 ML VIAL SC SCH ×2 (10:37→21:30)
[2022-07-12] MEDS ORDERED: Heparin 10,000 UNITS/ 10 ML VIAL ONE (12:31)
[2022-07-12] MEDS: Lidocaine Viscous Sol 2% 15 ml UD Cup SSW PRN (14:25)
[2022-07-12] MEDS: Chloraseptic Spray 180 ml Bottle PO PRN (14:26)
[2022-07-12] MEDS: Aluminum & Magnesium Hydroxide 60 ML, diphenhydrAMINE 150 MG, Lidocaine 2% Viscous Solu... SSW PRN (21:31)
[2022-07-13 05:41] LABS: Anion Gap 18 mmol/L (10-20); BUN (Urea Nitrogen) 19 mg/dL (8.4-25.7); Calc. Creatinine Clearance 42 mL/min (70-130); Calcium 8.8 mg/dL (7.8-10.44); Carbon Dioxide 21 mmol/L (23-31); Chloride 101 mmol/L (98-107); Estimated GFR 27; Glucose 126 mg/dL (80-115); Potassium 4.1 mmol/L (3.5-5.1); Sodium 136 mmol/L (136-145)
[2022-07-13] MEDS: Lorazepam 2 MG/ML VIAL SLOW IVP PRN (06:12)
[2022-07-13] MEDS: Carvedilol 6.25 MG TAB PO SCH (06:13)
[2022-07-13] MEDS: Rosuvastatin 20 MG TAB PO SCH (09:36)
[2022-07-13] MEDS: Gabapentin 300 MG CAP PO SCH ×2 (09:36→21:24)
[2022-07-13] MEDS: Aspirin 81 mg Enteric Coated Tablet PO SCH (09:36)
[2022-07-13] MEDS: Furosemide 80 MG TAB PO SCH (09:37)
[2022-07-13] MEDS: Amiodarone 200 MG TAB PO SCH ×2 (09:37→21:25)
[2022-07-13] MEDS: Heparin 5,000 UNITS/ML VIAL SC SCH (09:37)
[2022-07-13] MEDS: Senokot S 8.6-50 MG TAB PO SCH ×2 (09:37→23:05)
[2022-07-13] MEDS: Tacrolimus 1 MG CAP PO SCH ×2 (09:45→21:26)
[2022-07-13] MEDS: guaiFENesin/DM ER PO SCH ×2 (09:45→21:25)
[2022-07-13 12:01] LABS: Hemoglobin 11.6 g/dL (14.0-18.0); Mean Corpuscular HGB CONC 31.1 g/dL (32.0-36.0); Mean Corpuscular Hemoglobin 29.8 pg (27.0-31.0); Mean Corpuscular Volume 95.9 fl (78.0-98.0); Mean Platelet Volume 9.4 fL (7.4-10.4); Platelet Count 188 10x3/uL (130-400); RBC Distribution Width 17.2 % (11.5-14.5); White Blood Cell (WBC) Count 3.3 10x3/uL (4.8-10.8)
[2022-07-13 12:51] LABS: Band 4 % (5-11); Eosinophils 1 % (0-10); Lymphocytes 18 % (21-51); MDiff Complete? YES; Monocytes 6 % (0-10); Neutrophil 69 % (42-75); Platelet Morphology Comment Appears Adequate; RBC Morphology Normal; Reactive Lymphocytes 1 % (0-10)
[2022-07-13] MEDS: predniSONE 5 MG TAB PO SCH (13:24)
[2022-07-13] MEDS: Insulin Glargine 30 UNITS/0.3 ML VIAL SC SCH ×2 (13:26→21:25)
[2022-07-13 14:44] LABS: Actual Bicarbonate (HCO3a) 26.7 mEq/L (22-28); Base Excess (BEa) 3.1 mEq/L (-2.0 to +3.0); Calcium, Ionized (arterial) 1.13 mmol/L (1.12-1.30); Carboxyhemoglobin (COHb) 0.3 gm% (0.0-3.0); Hemoglobin (Hb) 11.3 g/dL (14.0-18.0); O2 Tension (PaO2), arterial 154.9 mmHg (> 80.0); Potassium - ABG Lab 3.14 mmol/L (3.70-5.30); pH, Arterial 7.48 (7.35-7.45)
[2022-07-13 14:48] LABS: Puncture Site LRA
[2022-07-14 05:43] LABS: #Lymphocytes 0.5 thou/uL (1.20-3.40); #Monocytes 0.4 thou/uL (0.11-0.59); #Neutrophils 2.5 thou/uL (1.40-6.50); %Basophils 0.2 % (0.0-1.0); %Eosinophils 1.3 % (0.0-10.0); %Lymphocytes 15.7 % (21.0-51.0); %Monocytes 10.7 % (0.0-10.0); %Neutrophils 72.1 % (42.0-75.0); Mean Corpuscular HGB CONC 31.2 g/dL (32.0-36.0); Mean Corpuscular Hemoglobin 29.8 pg (27.0-31.0); Mean Corpuscular Volume 95.6 fl (78.0-98.0); Mean Platelet Volume 9.3 fL (7.4-10.4); Platelet Count 223 10x3/uL (130-400); RBC Distribution Width 17.3 % (11.5-14.5); Red Blood Cell (RBC) Count 4.02 mill/uL (4.70-6.10); White Blood Cell (WBC) Count 3.4 10x3/uL (4.8-10.8)
[2022-07-14 06:31] LABS: Anion Gap 14 mmol/L (10-20); BUN (Urea Nitrogen) 28 mg/dL (8.4-25.7); Calc. Creatinine Clearance 29 mL/min (70-130); Calcium 8.7 mg/dL (7.8-10.44); Carbon Dioxide 25 mmol/L (23-31); Chloride 101 mmol/L (98-107); Estimated GFR 18; Glucose 61 mg/dL (80-115); Potassium 3.2 mmol/L (3.5-5.1)
[2022-07-14 06:40] LABS: Sodium 137 mmol/L (136-145)
[2022-07-14] MEDS: Rosuvastatin 20 MG TAB PO SCH (09:00)
[2022-07-14] MEDS: predniSONE 5 MG TAB PO SCH (09:00)
[2022-07-14] MEDS: Amiodarone 200 MG TAB PO SCH ×2 (09:00→21:44)
[2022-07-14] MEDS: Aspirin 81 mg Enteric Coated Tablet PO SCH (09:00)
[2022-07-14] MEDS: Senokot S 8.6-50 MG TAB PO SCH ×2 (09:00→22:21)
[2022-07-14] MEDS: Gabapentin 300 MG CAP PO SCH ×2 (09:00→21:44)
[2022-07-14] MEDS ORDERED: Heparin 10,000 UNITS/ 10 ML VIAL ONE (10:26)
[2022-07-14] MEDS: guaiFENesin/DM ER PO SCH ×2 (13:47→21:44)
[2022-07-14] MEDS: Tacrolimus 1 MG CAP PO SCH ×2 (13:47→21:44)
[2022-07-14] MEDS: Insulin Glargine 30 UNITS/0.3 ML VIAL SC SCH ×2 (13:48→22:20)
[2022-07-14] MEDS ORDERED: Dextrose 5% in Water 1,000 ML IV PRN (21:17)
[2022-07-14] MEDS ORDERED: Dextrose 50% Abboject 50 ML SYRINGE SLOW IVP PRN (21:17)
[2022-07-14] MEDS: Lorazepam 2 MG/ML VIAL SLOW IVP PRN (21:49)
[2022-07-15] MEDS: Lorazepam 2 MG/ML VIAL SLOW IVP PRN (03:30)
[2022-07-15 05:57] LABS: Anion Gap 13 mmol/L (10-20); BUN (Urea Nitrogen) 18 mg/dL (8.4-25.7); Calc. Creatinine Clearance 35 mL/min (70-130); Calcium 8.3 mg/dL (7.8-10.44); Carbon Dioxide 25 mmol/L (23-31); Chloride 100 mmol/L (98-107); Estimated GFR 22; Glucose 181 mg/dL (80-115); Potassium 3.5 mmol/L (3.5-5.1); Sodium 134 mmol/L (136-145)
[2022-07-15] MEDS: Aspirin 81 mg Enteric Coated Tablet PO SCH (08:50)
[2022-07-15] MEDS: Rosuvastatin 20 MG TAB PO SCH (08:50)
[2022-07-15] MEDS: Gabapentin 300 MG CAP PO SCH ×2 (08:50→20:13)
[2022-07-15] MEDS: predniSONE 5 MG TAB PO SCH (08:50)
[2022-07-15] MEDS: Amiodarone 200 MG TAB PO SCH ×2 (08:51→20:15)
[2022-07-15] MEDS: Tacrolimus 1 MG CAP PO SCH ×2 (08:51→20:15)
[2022-07-15] MEDS: guaiFENesin/DM ER PO SCH ×2 (08:51→20:15)
[2022-07-15] MEDS: Senokot S 8.6-50 MG TAB PO SCH ×2 (08:52→22:18)
[2022-07-15] MEDS: Insulin Glargine 30 UNITS/0.3 ML VIAL SC SCH ×2 (08:53→20:16)
[2022-07-15] MEDS: Furosemide 80 MG TAB PO SCH (09:34)
[2022-07-15] MEDS ORDERED: Dexamethasone 4 MG TAB PO SCH (11:45)
[2022-07-15] MEDS: Carvedilol 6.25 MG TAB PO SCH (20:15)
[2022-07-15] MEDS: Aluminum & Magnesium Hydroxide 60 ML, diphenhydrAMINE 150 MG, Lidocaine 2% Viscous Solu... SSW PRN (22:19)
[2022-07-16] MEDS: Carvedilol 6.25 MG TAB PO SCH ×2 (06:02→17:07)
[2022-07-16] MEDS: Aluminum & Magnesium Hydroxide 60 ML, diphenhydrAMINE 150 MG, Lidocaine 2% Viscous Solu... SSW PRN ×5 (06:07→21:52)
[2022-07-16] MEDS: Chloraseptic Spray 180 ml Bottle PO PRN ×3 (08:54→16:09)
[2022-07-16] MEDS: Insulin Glargine 30 UNITS/0.3 ML VIAL SC SCH ×2 (08:55→22:01)
[2022-07-16] MEDS: Gabapentin 300 MG CAP PO SCH ×2 (08:56→21:54)
[2022-07-16] MEDS: Tacrolimus 1 MG CAP PO SCH ×2 (08:56→21:53)
[2022-07-16] MEDS: Aspirin 81 mg Enteric Coated Tablet PO SCH (08:56)
[2022-07-16] MEDS: guaiFENesin/DM ER PO SCH ×2 (08:56→21:56)
[2022-07-16] MEDS: Amiodarone 200 MG TAB PO SCH ×2 (08:56→21:53)
[2022-07-16] MEDS: Rosuvastatin 20 MG TAB PO SCH (08:57)
[2022-07-16] MEDS: Dexamethasone 4 MG TAB PO SCH (08:57)
[2022-07-16] MEDS: Senokot S 8.6-50 MG TAB PO SCH ×2 (09:01→21:59)
[2022-07-16] MEDS: Heparin 5,000 UNITS/ML VIAL SC SCH ×3 (09:05→21:56)
[2022-07-16] MEDS: Furosemide 80 MG TAB PO SCH (09:19)
[2022-07-16] MEDS: Insulin Regular 300 UNITS/3 ML VIAL SC PRN ×4 (10:31→22:03)
[2022-07-17] MEDS: Insulin Regular 300 UNITS/3 ML VIAL SC PRN ×5 (00:31→21:07)
[2022-07-17] MEDS: Aluminum & Magnesium Hydroxide 60 ML, diphenhydrAMINE 150 MG, Lidocaine 2% Viscous Solu... SSW PRN ×3 (00:32→18:05)
[2022-07-17] MEDS: Carvedilol 6.25 MG TAB PO SCH (06:24)
[2022-07-17] MEDS: Heparin 5,000 UNITS/ML VIAL SC SCH ×3 (11:00→21:07)
[2022-07-17] MEDS: Dexamethasone 4 MG TAB PO SCH (12:07)
[2022-07-17] MEDS: Aspirin 81 mg Enteric Coated Tablet PO SCH (12:07)
[2022-07-17] MEDS: Rosuvastatin 20 MG TAB PO SCH (12:08)
[2022-07-17] MEDS: Amiodarone 200 MG TAB PO SCH ×2 (12:09→21:07)
[2022-07-17] MEDS: Tacrolimus 1 MG CAP PO SCH ×2 (12:09→21:07)
[2022-07-17] MEDS: Gabapentin 300 MG CAP PO SCH ×2 (12:09→21:07)
[2022-07-17] MEDS: Senokot S 8.6-50 MG TAB PO SCH ×2 (12:10→21:08)
[2022-07-17] MEDS: guaiFENesin/DM ER PO SCH ×2 (12:10→21:08)
[2022-07-17] MEDS: Insulin Glargine 30 UNITS/0.3 ML VIAL SC SCH ×2 (12:11→21:06)
[2022-07-17] MEDS ORDERED: Albuterol 200 PUFF (6.7GM INHALER) INH PRN (13:45)
[2022-07-17] MEDS: Albumin 25% 25 GM/100 ML BOT IVPB SCH ×2 (14:15→17:10)
[2022-07-17] MEDS: Furosemide 80 MG TAB PO SCH (15:23)
[2022-07-17] MEDS ORDERED: Carvedilol 6.25 MG TAB PO SCH (17:00)
[2022-07-17 17:02] LABS: #Lymphocytes 0.3 thou/uL (1.20-3.40); #Monocytes 0.3 thou/uL (0.11-0.59); #Neutrophils 3.4 thou/uL (1.40-6.50); %Basophils 0.2 % (0.0-1.0); %Eosinophils 0.2 % (0.0-10.0); %Lymphocytes 6.6 % (21.0-51.0); %Monocytes 6.8 % (0.0-10.0); %Neutrophils 86.2 % (42.0-75.0); Hemoglobin 11.2 g/dL (14.0-18.0); Mean Corpuscular HGB CONC 31.6 g/dL (32.0-36.0); Mean Corpuscular Hemoglobin 29.6 pg (27.0-31.0); Mean Corpuscular Volume 93.7 fl (78.0-98.0); Mean Platelet Volume 9.6 fL (7.4-10.4); Platelet Count 183 10x3/uL (130-400); RBC Distribution Width 17.5 % (11.5-14.5); Red Blood Cell (RBC) Count 3.78 mill/uL (4.70-6.10)
[2022-07-17 17:16] LABS: ALT (SGPT) 9 U/L (8-55); AST (SGOT) 10 U/L (5-34); Albumin 3.3 g/dL (3.4-4.8); Alkaline Phosphatase 73 U/L (40-110); Anion Gap 14 mmol/L (10-20); BUN (Urea Nitrogen) 31 mg/dL (8.4-25.7); Bilirubin, Total 0.8 mg/dL (0.2-1.2); Calc. Creatinine Clearance 35 mL/min (70-130); Calcium 8.6 mg/dL (7.8-10.44); Carbon Dioxide 24 mmol/L (23-31); Chloride 98 mmol/L (98-107); Estimated GFR 22; Globulin 2.4 g/dL (2.4-3.5); Glucose 286 mg/dL (80-115); Potassium 4.1 mmol/L (3.5-5.1); Protein, Total 5.7 g/dL (5.8-8.1); Sodium 132 mmol/L (136-145)
[2022-07-17 17:37] LABS: CKMB 0.8 ng/mL (0-6.6)
[2022-07-18] MEDS: Insulin Regular 300 UNITS/3 ML VIAL SC PRN ×4 (00:48→17:12)
[2022-07-18] MEDS: Lorazepam 2 MG/ML VIAL SLOW IVP PRN (02:22)
[2022-07-18] MEDS: Aluminum & Magnesium Hydroxide 60 ML, diphenhydrAMINE 150 MG, Lidocaine 2% Viscous Solu... SSW PRN ×3 (02:29→18:10)
[2022-07-18] MEDS: Insulin Glargine 30 UNITS/0.3 ML VIAL SC SCH ×2 (08:34→21:45)
[2022-07-18] MEDS: Rosuvastatin 20 MG TAB PO SCH (08:34)
[2022-07-18] MEDS: Gabapentin 300 MG CAP PO SCH ×2 (08:34→21:44)
[2022-07-18] MEDS: Senokot S 8.6-50 MG TAB PO SCH ×2 (08:34→23:32)
[2022-07-18] MEDS: Amiodarone 200 MG TAB PO SCH ×2 (08:35→21:43)
[2022-07-18] MEDS: guaiFENesin/DM ER PO SCH ×2 (08:35→21:44)
[2022-07-18] MEDS: Aspirin 81 mg Enteric Coated Tablet PO SCH (08:35)
[2022-07-18] MEDS: Tacrolimus 1 MG CAP PO SCH ×2 (08:35→21:43)
[2022-07-18] MEDS: Dexamethasone 4 MG TAB PO SCH (08:35)
[2022-07-18] MEDS: Heparin 5,000 UNITS/ML VIAL SC SCH ×3 (08:36→21:45)
[2022-07-18] MEDS: Furosemide 80 MG TAB PO SCH (10:15)
[2022-07-18 18:08] LABS: Anion Gap 16 mmol/L (10-20); BUN (Urea Nitrogen) 51 mg/dL (8.4-25.7); Calc. Creatinine Clearance 27 mL/min (70-130); Calcium 8.9 mg/dL (7.8-10.44); Carbon Dioxide 20 mmol/L (23-31); Chloride 99 mmol/L (98-107); Estimated GFR 16; Potassium 4.7 mmol/L (3.5-5.1); Sodium 130 mmol/L (136-145)
[2022-07-18 18:09] LABS: Magnesium 1.9 mg/dL (1.6-2.6)
[2022-07-18 18:20] LABS: Glucose 441 mg/dL (80-115)
[2022-07-18] MEDS: Carvedilol 3.125 MG TAB PO SCH (21:45)
[2022-07-19] MEDS: Insulin Regular 300 UNITS/3 ML VIAL SC PRN ×3 (00:30→08:32)
[2022-07-19 05:38] LABS: Hep B Surface AG-Rflx Sendout Negative (Negative); Hepatitis B Core Total Negative (Negative); Hepatitis B Surface AB-Sendout Reactive (.)
[2022-07-19 06:10] LABS: #Lymphocytes 0.4 thou/uL (1.20-3.40); #Monocytes 0.3 thou/uL (0.11-0.59); #Neutrophils 2.8 thou/uL (1.40-6.50); %Eosinophils 0.3 % (0.0-10.0); %Lymphocytes 10.8 % (21.0-51.0); %Monocytes 8.1 % (0.0-10.0); %Neutrophils 80.9 % (42.0-75.0); Hemoglobin 11.1 g/dL (14.0-18.0); Mean Corpuscular HGB CONC 31.9 g/dL (32.0-36.0); Mean Corpuscular Hemoglobin 30.5 pg (27.0-31.0); Mean Corpuscular Volume 95.5 fl (78.0-98.0); Mean Platelet Volume 9.9 fL (7.4-10.4); Platelet Count 170 10x3/uL (130-400); RBC Distribution Width 17.9 % (11.5-14.5); Red Blood Cell (RBC) Count 3.65 mill/uL (4.70-6.10); White Blood Cell (WBC) Count 3.5 10x3/uL (4.8-10.8)
[2022-07-19 06:19] LABS: Anion Gap 15 mmol/L (10-20); BUN (Urea Nitrogen) 66 mg/dL (8.4-25.7); Calc. Creatinine Clearance 24 mL/min (70-130); Calcium 8.9 mg/dL (7.8-10.44); Carbon Dioxide 22 mmol/L (23-31); Chloride 97 mmol/L (98-107); Estimated GFR 14; Magnesium 2.1 mg/dL (1.6-2.6); Potassium 4.3 mmol/L (3.5-5.1); Sodium 130 mmol/L (136-145)
[2022-07-19 06:23] LABS: Glucose 475 mg/dL (80-115)
[2022-07-19] MEDS: Gabapentin 300 MG CAP PO SCH ×2 (08:26→21:29)
[2022-07-19] MEDS: Aspirin 81 mg Enteric Coated Tablet PO SCH (08:26)
[2022-07-19] MEDS: Rosuvastatin 20 MG TAB PO SCH (08:27)
[2022-07-19] MEDS: Amiodarone 200 MG TAB PO SCH ×2 (08:27→21:29)
[2022-07-19] MEDS: Heparin 5,000 UNITS/ML VIAL SC SCH ×3 (08:27→21:28)
[2022-07-19] MEDS: Furosemide 80 MG TAB PO SCH (08:27)
[2022-07-19] MEDS: Tacrolimus 1 MG CAP PO SCH ×2 (08:27→21:29)
[2022-07-19] MEDS: guaiFENesin/DM ER PO SCH ×2 (08:27→21:29)
[2022-07-19] MEDS: Dexamethasone 4 MG TAB PO SCH (08:27)
[2022-07-19] MEDS: Carvedilol 3.125 MG TAB PO SCH ×2 (08:28→21:29)
[2022-07-19] MEDS: Insulin Glargine 30 UNITS/0.3 ML VIAL SC SCH ×2 (08:28→21:28)
[2022-07-19] MEDS: Senokot S 8.6-50 MG TAB PO SCH ×3 (08:28→21:28)
[2022-07-19] MEDS ORDERED: Insulin NPH Human Isophane 100 UNIT/ML (10 ML VIAL) SC SCH (09:00)
[2022-07-19] MEDS ORDERED: Insulin Glargine 30 UNITS/0.3 ML VIAL SC SCH (09:15)
[2022-07-19] MEDS: Aluminum & Magnesium Hydroxide 60 ML, diphenhydrAMINE 150 MG, Lidocaine 2% Viscous Solu... SSW PRN ×2 (13:36→17:24)
[2022-07-19] MEDS: HumaLOG 300 UNITS/3 ML VIAL SC SCH ×2 (13:38→17:24)
[2022-07-20 06:39] LABS: Magnesium 1.9 mg/dL (1.6-2.6)
[2022-07-20] MEDS: Senokot S 8.6-50 MG TAB PO SCH ×2 (08:02→21:06)
[2022-07-20] MEDS: Aluminum & Magnesium Hydroxide 60 ML, diphenhydrAMINE 150 MG, Lidocaine 2% Viscous Solu... SSW PRN ×3 (08:02→20:42)
[2022-07-20] MEDS: guaiFENesin/DM ER PO SCH ×2 (08:03→21:52)
[2022-07-20] MEDS: Furosemide 80 MG TAB PO SCH (08:03)
[2022-07-20] MEDS: Gabapentin 300 MG CAP PO SCH ×2 (08:03→21:06)
[2022-07-20] MEDS: Rosuvastatin 20 MG TAB PO SCH (08:03)
[2022-07-20] MEDS: Dexamethasone 4 MG TAB PO SCH (08:04)
[2022-07-20] MEDS: Amiodarone 200 MG TAB PO SCH ×2 (08:04→21:06)
[2022-07-20] MEDS: Heparin 5,000 UNITS/ML VIAL SC SCH ×3 (08:04→21:02)
[2022-07-20] MEDS: Insulin Glargine 30 UNITS/0.3 ML VIAL SC SCH ×2 (08:04→21:06)
[2022-07-20] MEDS: Carvedilol 3.125 MG TAB PO SCH (08:07)
[2022-07-20] MEDS: Aspirin 81 mg Enteric Coated Tablet PO SCH (08:54)
[2022-07-20] MEDS: Tacrolimus 1 MG CAP PO SCH ×2 (08:54→21:13)
[2022-07-20] MEDS: HumaLOG 300 UNITS/3 ML VIAL SC SCH ×3 (08:55→17:51)
[2022-07-20 09:25] LABS: Anion Gap 17 mmol/L (10-20); BUN (Urea Nitrogen) 47 mg/dL (8.4-25.7); Calc. Creatinine Clearance 29 mL/min (70-130); Calcium 8.9 mg/dL (7.8-10.44); Carbon Dioxide 20 mmol/L (23-31); Chloride 100 mmol/L (98-107); Estimated GFR 18; Glucose 126 mg/dL (80-115); Potassium 4.4 mmol/L (3.5-5.1); Sodium 133 mmol/L (136-145)
[2022-07-20] MEDS ORDERED: DOBUTamine 500 mg/250 ml 250 ML IVPB SCH (10:30)
[2022-07-20] MEDS ORDERED: Magnesium Oxide 400 MG TAB PO SCH (10:45)
[2022-07-20] MEDS ORDERED: DOBUTAMINE IVPB SCH (11:00)
[2022-07-20] MEDS ORDERED: SODIUM CHLORIDE 0.9% IVPB SCH (11:00)
[2022-07-20] MEDS ORDERED: Magnesium 2 GM/50 ML(in water) 2 GM in Premix Bag 1 BAG IVPB SCH (11:30)
[2022-07-20] MEDS: DOBUTAMINE IVPB SCH (11:40)
[2022-07-20] MEDS: SODIUM CHLORIDE 0.9% IVPB SCH (11:40)
[2022-07-20 15:28] LABS: #Lymphocytes 0.4 thou/uL (1.20-3.40); #Monocytes 0.4 thou/uL (0.11-0.59); #Neutrophils 4.6 thou/uL (1.40-6.50); %Basophils 0.8 % (0.0-1.0); %Eosinophils 0.3 % (0.0-10.0); %Lymphocytes 7.1 % (21.0-51.0); %Monocytes 7.2 % (0.0-10.0); %Neutrophils 84.7 % (42.0-75.0); Hemoglobin 12.1 g/dL (14.0-18.0); Mean Corpuscular HGB CONC 32.3 g/dL (32.0-36.0); Mean Corpuscular Volume 95.9 fl (78.0-98.0); Mean Platelet Volume 7.8 fL (7.4-10.4); Platelet Count 199 10x3/uL (130-400); RBC Distribution Width 18.6 % (11.5-14.5); Red Blood Cell (RBC) Count 3.91 mill/uL (4.70-6.10); White Blood Cell (WBC) Count 5.5 10x3/uL (4.8-10.8)
[2022-07-21] MEDS: Aluminum & Magnesium Hydroxide 60 ML, diphenhydrAMINE 150 MG, Lidocaine 2% Viscous Solu... SSW PRN ×2 (01:59→08:36)
[2022-07-21] MEDS: Magnesium Oxide 400 MG TAB PO SCH (06:28)
[2022-07-21 07:07] LABS: Anion Gap 19 mmol/L (10-20); BUN (Urea Nitrogen) 62 mg/dL (8.4-25.7); Calc. Creatinine Clearance 24 mL/min (70-130); Calcium 9.2 mg/dL (7.8-10.44); Carbon Dioxide 17 mmol/L (23-31); Chloride 104 mmol/L (98-107); Estimated GFR 14; Glucose 67 mg/dL (80-115); Magnesium 2.5 mg/dL (1.6-2.6); Potassium 4.9 mmol/L (3.5-5.1); Sodium 135 mmol/L (136-145)
[2022-07-21] MEDS ORDERED: Heparin 10,000 UNITS/ 10 ML VIAL ONE (08:28)
[2022-07-21] MEDS ORDERED: Magnesium Oxide 400 MG TAB PO SCH (09:00)
[2022-07-21] MEDS: Nystatin 500,000 UNITS/5 ML UDCUP SSW SCH ×3 (12:10→21:20)
[2022-07-21] MEDS: Heparin 5,000 UNITS/ML VIAL SC SCH ×3 (12:10→21:22)
[2022-07-21] MEDS: HumaLOG 300 UNITS/3 ML VIAL SC SCH ×3 (12:10→18:10)
[2022-07-21] MEDS: Senokot S 8.6-50 MG TAB PO SCH ×2 (15:16→21:32)
[2022-07-21] MEDS: Insulin Glargine 30 UNITS/0.3 ML VIAL SC SCH ×2 (15:17→21:22)
[2022-07-21] MEDS: traMADol HCl 50 MG TAB PO PRN (15:26)
[2022-07-21] MEDS: Dexamethasone 4 MG TAB PO SCH (15:27)
[2022-07-21] MEDS: Amiodarone 200 MG TAB PO SCH ×2 (15:29→21:22)
[2022-07-21] MEDS: Aspirin 81 mg Enteric Coated Tablet PO SCH (15:29)
[2022-07-21] MEDS: Gabapentin 300 MG CAP PO SCH ×2 (15:30→21:21)
[2022-07-21] MEDS: Rosuvastatin 20 MG TAB PO SCH (15:30)
[2022-07-21] MEDS: Furosemide 80 MG TAB PO SCH (15:31)
[2022-07-21] MEDS: guaiFENesin/DM ER PO SCH ×2 (15:31→21:21)
[2022-07-21] MEDS: Tacrolimus 1 MG CAP PO SCH ×2 (15:31→21:21)
[2022-07-21 19:32] LABS: SARS-CoV-2 NAA Rapid Test DETECTED (NotDetected)
[2022-07-22] MEDS: Nystatin 500,000 UNITS/5 ML UDCUP SSW SCH ×5 (02:34→21:43)
[2022-07-22] MEDS: Magnesium Oxide 400 MG TAB PO SCH (05:34)
[2022-07-22] MEDS: Aluminum & Magnesium Hydroxide 60 ML, diphenhydrAMINE 150 MG, Lidocaine 2% Viscous Solu... SSW PRN (05:39)
[2022-07-22 06:15] LABS: Anion Gap 13 mmol/L (10-20); BUN (Urea Nitrogen) 38 mg/dL (8.4-25.7); Calc. Creatinine Clearance 36 mL/min (70-130); Calcium 8.9 mg/dL (7.8-10.44); Carbon Dioxide 26 mmol/L (23-31); Chloride 101 mmol/L (98-107); Estimated GFR 23; Glucose 149 mg/dL (80-115); Magnesium 2.1 mg/dL (1.6-2.6); Potassium 4.3 mmol/L (3.5-5.1); Sodium 136 mmol/L (136-145)
[2022-07-22] MEDS: guaiFENesin/DM ER PO SCH ×2 (09:26→21:42)
[2022-07-22] MEDS: Furosemide 80 MG TAB PO SCH (09:26)
[2022-07-22] MEDS: Aspirin 81 mg Enteric Coated Tablet PO SCH (09:27)
[2022-07-22] MEDS: Tacrolimus 1 MG CAP PO SCH ×2 (09:27→21:43)
[2022-07-22] MEDS: Rosuvastatin 20 MG TAB PO SCH (09:27)
[2022-07-22] MEDS: Amiodarone 200 MG TAB PO SCH ×2 (09:27→21:43)
[2022-07-22] MEDS: Senokot S 8.6-50 MG TAB PO SCH ×2 (09:27→22:18)
[2022-07-22] MEDS: Dexamethasone 4 MG TAB PO SCH (09:28)
[2022-07-22] MEDS: Insulin Glargine 30 UNITS/0.3 ML VIAL SC SCH ×2 (09:28→21:43)
[2022-07-22] MEDS: Heparin 5,000 UNITS/ML VIAL SC SCH ×3 (09:28→21:43)
[2022-07-22] MEDS: Gabapentin 300 MG CAP PO SCH ×2 (09:28→21:42)
[2022-07-22] MEDS: HumaLOG 300 UNITS/3 ML VIAL SC SCH ×3 (09:29→17:41)
[2022-07-22] MEDS: Polyethylene Glycol 3350 17 GM Packet PO SCH (09:36)
[2022-07-22] MEDS: azaTHIOprine 50 MG TAB PO SCH (09:41)
[2022-07-22] MEDS ORDERED: Lidocaine 1% (PF) 30 ML VIAL ONE (10:46)
[2022-07-22] MEDS: DOBUTAMINE IVPB SCH (12:10)
[2022-07-22] MEDS: SODIUM CHLORIDE 0.9% IVPB SCH (12:10)
[2022-07-22 19:32] LABS: SARS-CoV-2 NAA Rapid Test DETECTED (NotDetected)
[2022-07-23] MEDS ORDERED: hydrALAZINE 20 MG/ML VIAL SLOW IVP SCH (00:15)
[2022-07-23] MEDS ORDERED: Nystatin Powder 15 GM BOT TOP PRN (03:46)
[2022-07-23 06:20] LABS: Anion Gap 13 mmol/L (10-20); BUN (Urea Nitrogen) 62 mg/dL (8.4-25.7); Calc. Creatinine Clearance 27 mL/min (70-130); Calcium 9.1 mg/dL (7.8-10.44); Carbon Dioxide 24 mmol/L (23-31); Chloride 98 mmol/L (98-107); Estimated GFR 16; Glucose 205 mg/dL (80-115); Magnesium 2.2 mg/dL (1.6-2.6); Potassium 4.2 mmol/L (3.5-5.1); Sodium 131 mmol/L (136-145)
[2022-07-23] MEDS: Magnesium Oxide 400 MG TAB PO SCH (06:23)
[2022-07-23] MEDS: Heparin 5,000 UNITS/ML VIAL SC SCH ×3 (08:48→22:24)
[2022-07-23] MEDS: Gabapentin 300 MG CAP PO SCH ×2 (08:49→22:19)
[2022-07-23] MEDS: Tacrolimus 1 MG CAP PO SCH ×2 (08:49→22:23)
[2022-07-23] MEDS: azaTHIOprine 50 MG TAB PO SCH (08:50)
[2022-07-23] MEDS: Dexamethasone 4 MG TAB PO SCH (08:50)
[2022-07-23] MEDS: Rosuvastatin 20 MG TAB PO SCH (08:50)
[2022-07-23] MEDS: Senokot S 8.6-50 MG TAB PO SCH ×2 (08:51→22:22)
[2022-07-23] MEDS: Furosemide 80 MG TAB PO SCH (08:52)
[2022-07-23] MEDS: Amiodarone 200 MG TAB PO SCH ×2 (08:53→22:19)
[2022-07-23] MEDS: guaiFENesin/DM ER PO SCH ×2 (08:53→22:19)
[2022-07-23] MEDS: HumaLOG 300 UNITS/3 ML VIAL SC SCH ×3 (08:53→17:11)
[2022-07-23] MEDS: Polyethylene Glycol 3350 17 GM Packet PO SCH (08:53)
[2022-07-23] MEDS: Aspirin 81 mg Enteric Coated Tablet PO SCH (08:53)
[2022-07-23] MEDS: Nystatin 500,000 UNITS/5 ML UDCUP SSW SCH ×5 (08:53→22:24)
[2022-07-23] MEDS: Aluminum & Magnesium Hydroxide 60 ML, diphenhydrAMINE 150 MG, Lidocaine 2% Viscous Solu... SSP PRN ×3 (08:56→22:38)
[2022-07-23] MEDS: Insulin Glargine 30 UNITS/0.3 ML VIAL SC SCH ×2 (09:00→22:21)
[2022-07-23] MEDS: cefTRIAXone\\ROCEPHIN 1 GM in Sodium Chloride 0.9% 100 ML IVPB SCH (12:03)
[2022-07-23] MEDS: hydrALAZINE 10 MG TAB PO SCH ×2 (15:17→22:21)
[2022-07-23] MEDS: Isosorbide Dinitrate 5 MG TAB PO SCH ×2 (15:18→22:23)
[2022-07-23 15:29] LABS: #Lymphocytes 0.3 thou/uL (1.20-3.40); #Monocytes 0.3 thou/uL (0.11-0.59); #Neutrophils 4.4 thou/uL (1.40-6.50); %Basophils 0.1 % (0.0-1.0); %Eosinophils 0.2 % (0.0-10.0); %Lymphocytes 6.5 % (21.0-51.0); %Monocytes 6.7 % (0.0-10.0); %Neutrophils 86.5 % (42.0-75.0); Hemoglobin 11.6 g/dL (14.0-18.0); Mean Corpuscular HGB CONC 33.2 g/dL (32.0-36.0); Mean Corpuscular Hemoglobin 31.7 pg (27.0-31.0); Mean Corpuscular Volume 95.5 fl (78.0-98.0); Mean Platelet Volume 9.6 fL (7.4-10.4); Platelet Count 171 10x3/uL (130-400); RBC Distribution Width 18.9 % (11.5-14.5); Red Blood Cell (RBC) Count 3.66 mill/uL (4.70-6.10); White Blood Cell (WBC) Count 5.1 10x3/uL (4.8-10.8)
[2022-07-23] MEDS: Nystatin Powder 15 GM BOT TOP SCH (22:16)
[2022-07-24] MEDS: DOBUTAMINE IVPB SCH (00:07)
[2022-07-24] MEDS: SODIUM CHLORIDE 0.9% IVPB SCH (00:07)
[2022-07-24] MEDS: Senokot S 8.6-50 MG TAB PO SCH ×3 (00:19→23:50)
[2022-07-24] MEDS ORDERED: CEFAZOLIN 2 GM in Sodium Chloride 0.9% 100 ML IVPB SCH (05:00)
[2022-07-24] MEDS: hydrALAZINE 10 MG TAB PO SCH ×3 (06:06→22:28)
[2022-07-24] MEDS: Isosorbide Dinitrate 5 MG TAB PO SCH ×3 (06:06→22:28)
[2022-07-24 07:29] LABS: Anion Gap 11 mmol/L (10-20); BUN (Urea Nitrogen) 59 mg/dL (8.4-25.7); Calc. Creatinine Clearance 33 mL/min (70-130); Calcium 6.5 mg/dL (7.8-10.44); Carbon Dioxide 16 mmol/L (23-31); Chloride 112 mmol/L (98-107); Estimated GFR 21; Glucose 179 mg/dL (80-115); Magnesium 1.6 mg/dL (1.6-2.6); Potassium 3.2 mmol/L (3.5-5.1); Sodium 136 mmol/L (136-145)
[2022-07-24] MEDS: Aluminum & Magnesium Hydroxide 60 ML, diphenhydrAMINE 150 MG, Lidocaine 2% Viscous Solu... SSP PRN (08:28)
[2022-07-24] MEDS ORDERED: Potassium Chloride 40 MEQ in Premix Bag 1 BAG IVPB SCH (10:00)
[2022-07-24] MEDS: Dexamethasone 4 MG TAB PO SCH (10:20)
[2022-07-24] MEDS: HumaLOG 300 UNITS/3 ML VIAL SC SCH ×3 (10:21→18:02)
[2022-07-24] MEDS: azaTHIOprine 50 MG TAB PO SCH (10:21)
[2022-07-24] MEDS: Furosemide 80 MG TAB PO SCH (10:23)
[2022-07-24] MEDS: Nystatin Powder 15 GM BOT TOP SCH ×2 (10:23→22:26)
[2022-07-24] MEDS: Rosuvastatin 20 MG TAB PO SCH (10:23)
[2022-07-24] MEDS: Gabapentin 300 MG CAP PO SCH ×2 (10:24→22:25)
[2022-07-24] MEDS: Amiodarone 200 MG TAB PO SCH ×2 (10:25→22:25)
[2022-07-24] MEDS: guaiFENesin/DM ER PO SCH ×2 (10:25→22:26)
[2022-07-24] MEDS: Tacrolimus 1 MG CAP PO SCH ×2 (10:25→22:27)
[2022-07-24] MEDS: Polyethylene Glycol 3350 17 GM Packet PO SCH (10:26)
[2022-07-24] MEDS: Heparin 5,000 UNITS/ML VIAL SC SCH ×3 (10:26→23:49)
[2022-07-24] MEDS: Nystatin 500,000 UNITS/5 ML UDCUP SSW SCH ×4 (10:27→22:24)
[2022-07-24] MEDS: Insulin Glargine 30 UNITS/0.3 ML VIAL SC SCH ×2 (10:27→23:49)
[2022-07-24] MEDS: Micafungin 100 MG in Sodium Chloride 0.9% 100 ML IVPB SCH (10:31)
[2022-07-24] MEDS: cefTRIAXone\\ROCEPHIN 1 GM in Sodium Chloride 0.9% 100 ML IVPB SCH (11:42)
[2022-07-24] MEDS ORDERED: CALCIUM GLUC 1 GM/NS 50 ML 1 GM in Premix Bag 1 BAG IVPB SCH (12:00)
[2022-07-24] MEDS ORDERED: Magnesium 2 GM/50 ML(in water) 2 GM in Premix Bag 1 BAG IVPB SCH (13:00)
[2022-07-24] MEDS ORDERED: Sodium Bicarbonate 75 MEQ in Dextrose 5% in Water 500 ML IV SCH (14:00)
[2022-07-24] MEDS ORDERED: Midazolam HCl 2 mg/2 ml Vial ONE (14:37)
[2022-07-24] MEDS ORDERED: Fentanyl 250 MCG/5 ML VIAL ONE (14:37)
[2022-07-24] MEDS ORDERED: Bupivacaine/Epinephrine 0.25% 30 ML VIAL ONE (14:48)
[2022-07-24] MEDS ORDERED: Sodium Chloride 0.9% 100 ML ONE (14:56)
[2022-07-24] MEDS ORDERED: CEFAZOLIN 2 GM VIAL ONE (14:56)
[2022-07-24] MEDS ORDERED: Lidocaine 2% PF 5 ML VIAL ONE (15:05)
[2022-07-24] MEDS: Aspirin 81 mg Enteric Coated Tablet PO SCH (16:41)
[2022-07-24] MEDS: traMADol HCl 50 MG TAB PO PRN (22:29)
[2022-07-24 23:21] LABS: #Lymphocytes 0.3 thou/uL (1.20-3.40); #Monocytes 0.5 thou/uL (0.11-0.59); #Neutrophils 4.1 thou/uL (1.40-6.50); %Basophils 0.7 % (0.0-1.0); %Eosinophils 0.3 % (0.0-10.0); %Lymphocytes 6.2 % (21.0-51.0); %Monocytes 9.1 % (0.0-10.0); %Neutrophils 83.7 % (42.0-75.0); Hemoglobin 12.3 g/dL (14.0-18.0); Mean Corpuscular HGB CONC 30.8 g/dL (32.0-36.0); Mean Corpuscular Hemoglobin 29.9 pg (27.0-31.0); Mean Platelet Volume 10.1 fL (7.4-10.4); Platelet Count 165 10x3/uL (130-400); Red Blood Cell (RBC) Count 4.12 mill/uL (4.70-6.10); White Blood Cell (WBC) Count 4.9 10x3/uL (4.8-10.8)
[2022-07-25] MEDS: hydrALAZINE 10 MG TAB PO SCH (05:07)
[2022-07-25] MEDS: Isosorbide Dinitrate 5 MG TAB PO SCH (05:08)
[2022-07-25] MEDS: SODIUM CHLORIDE 0.9% IVPB SCH ×2 (05:33→16:29)
[2022-07-25] MEDS: DOBUTAMINE IVPB SCH ×2 (05:33→16:29)
[2022-07-25 06:01] LABS: Anion Gap 15 mmol/L (10-20); BUN (Urea Nitrogen) 39 mg/dL (8.4-25.7); Calc. Creatinine Clearance 33 mL/min (70-130); Calcium 8.9 mg/dL (7.8-10.44); Carbon Dioxide 29 mmol/L (23-31); Chloride 98 mmol/L (98-107); Estimated GFR 21; Glucose 222 mg/dL (80-115); Magnesium 2.4 mg/dL (1.6-2.6); Potassium 4.7 mmol/L (3.5-5.1); Sodium 137 mmol/L (136-145)
[2022-07-25] MEDS: Insulin Regular 300 UNITS/3 ML VIAL SC PRN ×2 (06:18→22:14)
[2022-07-25] MEDS ORDERED: Lactated Ringer's 500 ML IV SCH (09:00)
[2022-07-25] MEDS ORDERED: metroNIDAZOLE 500 MG TAB PO SCH (09:15)
[2022-07-25] MEDS: Senokot S 8.6-50 MG TAB PO SCH ×2 (09:23→22:20)
[2022-07-25] MEDS: Polyethylene Glycol 3350 17 GM Packet PO SCH (09:23)
[2022-07-25] MEDS: azaTHIOprine 50 MG TAB PO SCH (09:25)
[2022-07-25] MEDS: Amiodarone 200 MG TAB PO SCH ×2 (09:25→22:11)
[2022-07-25] MEDS: Rosuvastatin 20 MG TAB PO SCH (09:26)
[2022-07-25] MEDS: Gabapentin 300 MG CAP PO SCH ×2 (09:26→22:11)
[2022-07-25] MEDS: predniSONE 5 MG TAB PO SCH (09:26)
[2022-07-25] MEDS: Furosemide 80 MG TAB PO SCH (09:26)
[2022-07-25] MEDS: Tacrolimus 1 MG CAP PO SCH ×2 (09:27→22:20)
[2022-07-25] MEDS: Aspirin 81 mg Enteric Coated Tablet PO SCH (09:27)
[2022-07-25] MEDS: guaiFENesin/DM ER PO SCH ×2 (09:28→22:13)
[2022-07-25] MEDS: Nystatin 500,000 UNITS/5 ML UDCUP SSW SCH ×4 (09:29→22:21)
[2022-07-25] MEDS: HumaLOG 300 UNITS/3 ML VIAL SC SCH ×3 (09:31→17:29)
[2022-07-25] MEDS: Insulin Glargine 30 UNITS/0.3 ML VIAL SC SCH ×2 (09:32→22:18)
[2022-07-25] MEDS: Heparin 5,000 UNITS/ML VIAL SC SCH ×3 (09:33→22:27)
[2022-07-25] MEDS: Micafungin 100 MG in Sodium Chloride 0.9% 100 ML IVPB SCH (09:43)
[2022-07-25] MEDS: Nystatin Powder 15 GM BOT TOP SCH ×2 (11:34→23:34)
[2022-07-25] MEDS ORDERED: Albumin 25% 25 GM/100 ML BOT IVPB SCH (12:00)
[2022-07-25 12:10] LABS: #Lymphocytes 0.5 thou/uL (1.20-3.40); #Monocytes 0.7 thou/uL (0.11-0.59); #Neutrophils 3.7 thou/uL (1.40-6.50); %Eosinophils 0.7 % (0.0-10.0); %Lymphocytes 10.8 % (21.0-51.0); %Monocytes 13.5 % (0.0-10.0); %Neutrophils 74.9 % (42.0-75.0); Hemoglobin 11.8 g/dL (14.0-18.0); Mean Corpuscular HGB CONC 31.8 g/dL (32.0-36.0); Mean Corpuscular Hemoglobin 30.7 pg (27.0-31.0); Mean Corpuscular Volume 96.7 fl (78.0-98.0); Mean Platelet Volume 9.9 fL (7.4-10.4); Platelet Count 162 10x3/uL (130-400); RBC Distribution Width 19.1 % (11.5-14.5); Red Blood Cell (RBC) Count 3.83 mill/uL (4.70-6.10); White Blood Cell (WBC) Count 4.9 10x3/uL (4.8-10.8)
[2022-07-25] MEDS: cefTRIAXone\\ROCEPHIN 1 GM in Sodium Chloride 0.9% 100 ML IVPB SCH (13:49)
[2022-07-25] MEDS: Ipratropium Oral Inhaler INH PRN (16:31)
[2022-07-25] MEDS ORDERED: Lactated Ringer's 250 ML IV SCH (18:00)
[2022-07-25] MEDS ORDERED: Insulin Glargine 30 UNITS/0.3 ML VIAL SC SCH (21:00)
[2022-07-25] MEDS ORDERED: Sodium Chloride 0.65% Nasal 44 ML BOT EA NARE PRN (22:11)
[2022-07-25] MEDS: metroNIDAZOLE 500 MG TAB PO SCH (22:19)
[2022-07-25] MEDS ORDERED: Lorazepam 0.5 MG TAB PO SCH (22:30)
[2022-07-25] MEDS: Albumin 25% 25 GM/100 ML BOT IVPB SCH (22:57)
[2022-07-26 05:50] LABS: Anion Gap 14 mmol/L (10-20); BUN (Urea Nitrogen) 58 mg/dL (8.4-25.7); Calc. Creatinine Clearance 27 mL/min (70-130); Calcium 8.9 mg/dL (7.8-10.44); Carbon Dioxide 25 mmol/L (23-31); Chloride 99 mmol/L (98-107); Estimated GFR 16; Glucose 119 mg/dL (80-115); Magnesium 2.2 mg/dL (1.6-2.6); Potassium 4.2 mmol/L (3.5-5.1); Sodium 134 mmol/L (136-145)
[2022-07-26] MEDS ORDERED: Lidocaine 1% (PF) 30 ML VIAL ONE (06:56)
[2022-07-26] MEDS ORDERED: CEFAZOLIN 1 GM VIAL ONE (06:56)
[2022-07-26] MEDS ORDERED: Gentamicin 80 MG/2 ML VIAL ONE (06:56)
[2022-07-26] MEDS ORDERED: Heparin 10,000 UNITS/ 10 ML VIAL ONE (07:40)
[2022-07-26] MEDS ORDERED: Sodium Chloride 0.9% 500 ML IVPB SCH (08:00)
[2022-07-26] MEDS: Micafungin 100 MG in Sodium Chloride 0.9% 100 ML IVPB SCH (10:07)
[2022-07-26] MEDS: Nystatin 500,000 UNITS/5 ML UDCUP SSW SCH ×3 (10:08→21:05)
[2022-07-26] MEDS: guaiFENesin/DM ER PO SCH ×2 (10:08→21:04)
[2022-07-26] MEDS: azaTHIOprine 50 MG TAB PO SCH (10:09)
[2022-07-26] MEDS: Tacrolimus 1 MG CAP PO SCH ×2 (10:09→21:03)
[2022-07-26] MEDS: predniSONE 5 MG TAB PO SCH (10:12)
[2022-07-26] MEDS: Rosuvastatin 20 MG TAB PO SCH (10:12)
[2022-07-26] MEDS: Aspirin 81 mg Enteric Coated Tablet PO SCH (10:12)
[2022-07-26] MEDS: Furosemide 80 MG TAB PO SCH (10:13)
[2022-07-26] MEDS: Gabapentin 300 MG CAP PO SCH ×2 (10:13→21:02)
[2022-07-26] MEDS: Amiodarone 200 MG TAB PO SCH ×2 (10:13→21:02)
[2022-07-26] MEDS: metroNIDAZOLE 500 MG TAB PO SCH ×2 (10:14→21:02)
[2022-07-26] MEDS: Polyethylene Glycol 3350 17 GM Packet PO SCH (10:19)
[2022-07-26] MEDS: Senokot S 8.6-50 MG TAB PO SCH (10:19)
[2022-07-26] MEDS: Insulin Glargine 30 UNITS/0.3 ML VIAL SC SCH ×2 (11:05→21:06)
[2022-07-26] MEDS: HumaLOG 300 UNITS/3 ML VIAL SC SCH ×3 (11:05→17:19)
[2022-07-26] MEDS: Nystatin Powder 15 GM BOT TOP SCH ×3 (11:05→21:05)
[2022-07-26] MEDS: Albumin 25% 25 GM/100 ML BOT IVPB SCH (11:45)
[2022-07-26] MEDS: cefTRIAXone\\ROCEPHIN 1 GM in Sodium Chloride 0.9% 100 ML IVPB SCH (11:45)
[2022-07-26 18:25] LABS: #Lymphocytes 0.6 thou/uL (1.20-3.40); #Monocytes 0.3 thou/uL (0.11-0.59); #Neutrophils 3.2 thou/uL (1.40-6.50); %Eosinophils 0.4 % (0.0-10.0); %Monocytes 7.8 % (0.0-10.0); %Neutrophils 77.8 % (42.0-75.0); Hemoglobin 11.2 g/dL (14.0-18.0); Mean Corpuscular HGB CONC 31.3 g/dL (32.0-36.0); Mean Corpuscular Hemoglobin 30.1 pg (27.0-31.0); Mean Corpuscular Volume 96.3 fl (78.0-98.0); Mean Platelet Volume 10.2 fL (7.4-10.4); Platelet Count 138 10x3/uL (130-400); RBC Distribution Width 19.2 % (11.5-14.5); Red Blood Cell (RBC) Count 3.72 mill/uL (4.70-6.10); White Blood Cell (WBC) Count 4.1 10x3/uL (4.8-10.8)
[2022-07-26] MEDS: Aluminum & Magnesium Hydroxide 60 ML, diphenhydrAMINE 150 MG, Lidocaine 2% Viscous Solu... SSP PRN (21:05)
[2022-07-27] MEDS: Albumin 25% 25 GM/100 ML BOT IVPB SCH (00:05)
[2022-07-27] MEDS: Senokot S 8.6-50 MG TAB PO SCH ×3 (01:40→20:58)
[2022-07-27] MEDS: Nystatin 500,000 UNITS/5 ML UDCUP SSW SCH ×5 (01:41→22:51)
[2022-07-27 07:11] LABS: Anion Gap 11 mmol/L (10-20); BUN (Urea Nitrogen) 32 mg/dL (8.4-25.7); Calc. Creatinine Clearance 35 mL/min (70-130); Calcium 9.5 mg/dL (7.8-10.44); Carbon Dioxide 27 mmol/L (23-31); Chloride 103 mmol/L (98-107); Estimated GFR 22; Glucose 90 mg/dL (80-115); Potassium 3.9 mmol/L (3.5-5.1); Sodium 137 mmol/L (136-145)
[2022-07-27] MEDS ORDERED: Magnesium 2 GM/50 ML(in water) 2 GM in Premix Bag 1 BAG IVPB SCH (07:30)
[2022-07-27] MEDS: HumaLOG 300 UNITS/3 ML VIAL SC SCH ×4 (07:44→21:17)
[2022-07-27] MEDS: Micafungin 100 MG in Sodium Chloride 0.9% 100 ML IVPB SCH (09:10)
[2022-07-27] MEDS: Insulin Glargine 30 UNITS/0.3 ML VIAL SC SCH ×2 (09:11→21:18)
[2022-07-27] MEDS: predniSONE 5 MG TAB PO SCH (09:11)
[2022-07-27] MEDS: Tacrolimus 1 MG CAP PO SCH ×2 (09:11→20:57)
[2022-07-27] MEDS: Rosuvastatin 20 MG TAB PO SCH (09:11)
[2022-07-27] MEDS: Aspirin 81 mg Enteric Coated Tablet PO SCH (09:12)
[2022-07-27] MEDS: metroNIDAZOLE 500 MG TAB PO SCH ×2 (09:12→20:56)
[2022-07-27] MEDS: guaiFENesin/DM ER PO SCH ×2 (09:12→20:57)
[2022-07-27] MEDS: Gabapentin 300 MG CAP PO SCH ×2 (09:12→20:57)
[2022-07-27] MEDS: azaTHIOprine 50 MG TAB PO SCH (09:12)
[2022-07-27] MEDS: Nystatin Powder 15 GM BOT TOP SCH ×2 (09:13→20:56)
[2022-07-27] MEDS: Polyethylene Glycol 3350 17 GM Packet PO SCH (09:13)
[2022-07-27] MEDS: Amiodarone 200 MG TAB PO SCH ×2 (09:16→20:57)
[2022-07-27] MEDS: cefTRIAXone\\ROCEPHIN 1 GM in Sodium Chloride 0.9% 100 ML IVPB SCH (12:15)
[2022-07-27] MEDS: DOBUTAMINE IVPB SCH (13:37)
[2022-07-27] MEDS: SODIUM CHLORIDE 0.9% IVPB SCH (13:37)
[2022-07-28] MEDS ORDERED: Propofol 500 MG/50 ML VIAL ONE (06:48)
[2022-07-28] MEDS ORDERED: Lidocaine 2% PF 5 ML VIAL ONE ×2 (07:04)
[2022-07-28] MEDS ORDERED: Bupivacaine HCl 0.5%/Epinephrine 1:200,000/PF 30 ml Vial ONE (07:04)
[2022-07-28 07:29] LABS: Anion Gap 14 mmol/L (10-20); BUN (Urea Nitrogen) 48 mg/dL (8.4-25.7); Calc. Creatinine Clearance 28 mL/min (70-130); Calcium 9.3 mg/dL (7.8-10.44); Carbon Dioxide 22 mmol/L (23-31); Chloride 104 mmol/L (98-107); Estimated GFR 17; Glucose 252 mg/dL (80-115); Sodium 136 mmol/L (136-145)
[2022-07-28] MEDS ORDERED: Sodium Chloride 0.9% 100 ML ONE (07:41)
[2022-07-28] MEDS ORDERED: CEFAZOLIN 2 GM VIAL ONE (07:41)
[2022-07-28] MEDS ORDERED: Ketamine 50 MG/ML (10ML VIAL) ONE (07:48)
[2022-07-28] MEDS ORDERED: Midazolam HCl 2 mg/2 ml Vial ONE (07:48)
[2022-07-28] MEDS ORDERED: HumaLOG 300 UNITS/3 ML VIAL SC SCH (09:00)
[2022-07-28] MEDS: HumaLOG 300 UNITS/3 ML VIAL SC SCH ×3 (09:46→17:00)
[2022-07-28] MEDS: Nystatin 500,000 UNITS/5 ML UDCUP SSW SCH ×5 (09:53→22:31)
[2022-07-28] MEDS: predniSONE 5 MG TAB PO SCH (09:54)
[2022-07-28] MEDS: azaTHIOprine 50 MG TAB PO SCH (09:54)
[2022-07-28] MEDS: Rosuvastatin 20 MG TAB PO SCH (09:54)
[2022-07-28] MEDS: Insulin Glargine 30 UNITS/0.3 ML VIAL SC SCH ×2 (09:55→22:24)
[2022-07-28] MEDS: metroNIDAZOLE 500 MG TAB PO SCH ×2 (09:55→22:27)
[2022-07-28] MEDS: Aspirin 81 mg Enteric Coated Tablet PO SCH (09:55)
[2022-07-28] MEDS: Amiodarone 200 MG TAB PO SCH ×2 (09:55→22:27)
[2022-07-28] MEDS: guaiFENesin/DM ER PO SCH ×2 (09:56→22:28)
[2022-07-28] MEDS: Gabapentin 300 MG CAP PO SCH ×2 (09:56→22:27)
[2022-07-28] MEDS: Senokot S 8.6-50 MG TAB PO SCH ×2 (09:56→22:32)
[2022-07-28] MEDS: Tacrolimus 1 MG CAP PO SCH ×2 (09:56→22:29)
[2022-07-28] MEDS: Polyethylene Glycol 3350 17 GM Packet PO SCH (09:57)
[2022-07-28] MEDS: Nystatin Powder 15 GM BOT TOP SCH (09:58)
[2022-07-28] MEDS: Micafungin 100 MG in Sodium Chloride 0.9% 100 ML IVPB SCH (10:21)
[2022-07-28] MEDS: Ondansetron PF 4 MG/2 ML Vial IVP PRN (12:15)
[2022-07-28] MEDS: cefTRIAXone\\ROCEPHIN 1 GM in Sodium Chloride 0.9% 100 ML IVPB SCH (12:15)
[2022-07-28 13:20] LABS: Magnesium 2.5 mg/dL (1.6-2.6)
[2022-07-28] MEDS ORDERED: CEFAZOLIN 2 GM in Sodium Chloride 0.9% 100 ML IVPB SCH (16:15)
[2022-07-28] MEDS: Insulin Regular 300 UNITS/3 ML VIAL SC PRN (22:24)
[2022-07-28] MEDS: DOBUTAMINE IVPB SCH (23:38)
[2022-07-28] MEDS: SODIUM CHLORIDE 0.9% IVPB SCH (23:38)
[2022-07-29] MEDS: Nystatin Powder 15 GM BOT TOP SCH ×3 (00:05→23:33)
[2022-07-29 06:34] LABS: Anion Gap 14 mmol/L (10-20); BUN (Urea Nitrogen) 56 mg/dL (8.4-25.7); Calc. Creatinine Clearance 26 mL/min (70-130); Calcium 8.9 mg/dL (7.8-10.44); Carbon Dioxide 21 mmol/L (23-31); Chloride 106 mmol/L (98-107); Estimated GFR 16; Glucose 173 mg/dL (80-115); Magnesium 2.4 mg/dL (1.6-2.6); Potassium 4.6 mmol/L (3.5-5.1); Sodium 136 mmol/L (136-145)
[2022-07-29] MEDS: Insulin Regular 300 UNITS/3 ML VIAL SC PRN ×2 (06:52→13:27)
[2022-07-29] MEDS: HumaLOG 300 UNITS/3 ML VIAL SC SCH ×3 (09:34→17:38)
[2022-07-29] MEDS: Furosemide 80 MG TAB PO SCH (09:36)
[2022-07-29] MEDS: Amiodarone 200 MG TAB PO SCH ×2 (09:36→23:30)
[2022-07-29] MEDS: metroNIDAZOLE 500 MG TAB PO SCH ×2 (09:36→23:30)
[2022-07-29] MEDS: Rosuvastatin 20 MG TAB PO SCH (09:36)
[2022-07-29] MEDS: Aspirin 81 mg Enteric Coated Tablet PO SCH (09:36)
[2022-07-29] MEDS: azaTHIOprine 50 MG TAB PO SCH (09:36)
[2022-07-29] MEDS: Gabapentin 300 MG CAP PO SCH ×2 (09:36→23:30)
[2022-07-29] MEDS: Tacrolimus 1 MG CAP PO SCH ×2 (09:37→23:33)
[2022-07-29] MEDS: guaiFENesin/DM ER PO SCH ×2 (09:37→23:36)
[2022-07-29] MEDS: Insulin Glargine 30 UNITS/0.3 ML VIAL SC SCH ×2 (09:38→23:35)
[2022-07-29] MEDS: Polyethylene Glycol 3350 17 GM Packet PO SCH (09:46)
[2022-07-29] MEDS: Micafungin 100 MG in Sodium Chloride 0.9% 100 ML IVPB SCH (09:46)
[2022-07-29] MEDS: Senokot S 8.6-50 MG TAB PO SCH ×2 (09:46→23:33)
[2022-07-29] MEDS: predniSONE 5 MG TAB PO SCH (10:34)
[2022-07-29] MEDS: cefTRIAXone\\ROCEPHIN 1 GM in Sodium Chloride 0.9% 100 ML IVPB SCH (13:10)
[2022-07-29] MEDS: Nystatin 500,000 UNITS/5 ML UDCUP SSW SCH ×3 (13:13→23:30)
[2022-07-29] MEDS: hydrALAZINE 10 MG TAB PO SCH ×2 (13:14→23:30)
[2022-07-29] MEDS: Isosorbide Dinitrate 5 MG TAB PO SCH ×2 (13:14→23:34)
[2022-07-29 15:45] LABS: #Eosinphils 0.1 thou/uL (0.0-0.7); #Lymphocytes 0.7 thou/uL (1.20-3.40); #Monocytes 0.4 thou/uL (0.11-0.59); #Neutrophils 4.6 thou/uL (1.40-6.50); %Eosinophils 1.2 % (0.0-10.0); %Lymphocytes 11.3 % (21.0-51.0); %Monocytes 6.9 % (0.0-10.0); %Neutrophils 80.6 % (42.0-75.0); Hemoglobin 10.3 g/dL (14.0-18.0); Mean Corpuscular HGB CONC 31.7 g/dL (32.0-36.0); Mean Corpuscular Hemoglobin 30.9 pg (27.0-31.0); Mean Corpuscular Volume 97.3 fl (78.0-98.0); RBC Distribution Width 18.8 % (11.5-14.5); Red Blood Cell (RBC) Count 3.32 mill/uL (4.70-6.10); White Blood Cell (WBC) Count 5.7 10x3/uL (4.8-10.8)
[2022-07-29 16:06] LABS: Mean Platelet Volume 10.1 fL (7.4-10.4); Platelet Count 118 10x3/uL (130-400)
[2022-07-29 16:07] LABS: Anisocytosis SLIGHT = 6-15 cells (100X) (0-5/hpf); MDiff Complete? YES; Platelet Morphology Comment Appears Decreased
[2022-07-30] MEDS: DOBUTAMINE IVPB SCH ×2 (00:23→17:45)
[2022-07-30] MEDS: SODIUM CHLORIDE 0.9% IVPB SCH ×2 (00:23→17:45)
[2022-07-30 05:57] LABS: Anion Gap 14 mmol/L (10-20); BUN (Urea Nitrogen) 60 mg/dL (8.4-25.7); Calc. Creatinine Clearance 24 mL/min (70-130); Carbon Dioxide 21 mmol/L (23-31); Chloride 105 mmol/L (98-107); Estimated GFR 14; Glucose 142 mg/dL (80-115); Potassium 4.4 mmol/L (3.5-5.1); Sodium 136 mmol/L (136-145)
[2022-07-30] MEDS: Isosorbide Dinitrate 5 MG TAB PO SCH ×3 (06:57→22:48)
[2022-07-30] MEDS: hydrALAZINE 10 MG TAB PO SCH ×3 (06:58→22:47)
[2022-07-30] MEDS: Gabapentin 300 MG CAP PO SCH ×2 (08:12→20:02)
[2022-07-30] MEDS: metroNIDAZOLE 500 MG TAB PO SCH ×2 (08:13→20:02)
[2022-07-30] MEDS: Rosuvastatin 20 MG TAB PO SCH (08:13)
[2022-07-30] MEDS: azaTHIOprine 50 MG TAB PO SCH (08:14)
[2022-07-30] MEDS: Nystatin 500,000 UNITS/5 ML UDCUP SSW SCH ×4 (08:14→22:48)
[2022-07-30] MEDS: Aspirin 81 mg Enteric Coated Tablet PO SCH (08:14)
[2022-07-30] MEDS: Amiodarone 200 MG TAB PO SCH ×2 (08:14→20:03)
[2022-07-30] MEDS: Furosemide 80 MG TAB PO SCH (08:14)
[2022-07-30] MEDS: Tacrolimus 1 MG CAP PO SCH ×2 (08:15→20:04)
[2022-07-30] MEDS: predniSONE 5 MG TAB PO SCH (08:15)
[2022-07-30] MEDS: Senokot S 8.6-50 MG TAB PO SCH ×2 (08:15→20:25)
[2022-07-30] MEDS: Polyethylene Glycol 3350 17 GM Packet PO SCH (08:15)
[2022-07-30] MEDS: Nystatin Powder 15 GM BOT TOP SCH ×3 (08:19→22:57)
[2022-07-30] MEDS: HumaLOG 300 UNITS/3 ML VIAL SC SCH ×3 (08:20→17:45)
[2022-07-30] MEDS: guaiFENesin/DM ER PO SCH ×2 (08:21→22:49)
[2022-07-30] MEDS: Insulin Glargine 30 UNITS/0.3 ML VIAL SC SCH ×2 (09:15→20:19)
[2022-07-30] MEDS: Micafungin 100 MG in Sodium Chloride 0.9% 100 ML IVPB SCH (10:56)
[2022-07-30] MEDS: cefTRIAXone\\ROCEPHIN 1 GM in Sodium Chloride 0.9% 100 ML IVPB SCH (12:10)
[2022-07-30] MEDS: Insulin Regular 300 UNITS/3 ML VIAL SC PRN (20:20)
[2022-07-31 05:29] LABS: Anion Gap 11 mmol/L (10-20); BUN (Urea Nitrogen) 60 mg/dL (8.4-25.7); Calc. Creatinine Clearance 23 mL/min (70-130); Calcium 8.9 mg/dL (7.8-10.44); Carbon Dioxide 21 mmol/L (23-31); Chloride 108 mmol/L (98-107); Estimated GFR 13; Glucose 114 mg/dL (80-115); Magnesium 2.2 mg/dL (1.6-2.6); Potassium 4.3 mmol/L (3.5-5.1); Sodium 136 mmol/L (136-145)
[2022-07-31] MEDS: hydrALAZINE 10 MG TAB PO SCH ×3 (06:21→22:26)
[2022-07-31] MEDS: Isosorbide Dinitrate 5 MG TAB PO SCH ×3 (06:22→22:25)
[2022-07-31] MEDS: Tacrolimus 1 MG CAP PO SCH ×2 (08:33→22:24)
[2022-07-31] MEDS: Rosuvastatin 20 MG TAB PO SCH (08:33)
[2022-07-31] MEDS: guaiFENesin/DM ER PO SCH ×2 (08:33→22:25)
[2022-07-31] MEDS: Aspirin 81 mg Enteric Coated Tablet PO SCH (08:34)
[2022-07-31] MEDS: azaTHIOprine 50 MG TAB PO SCH (08:34)
[2022-07-31] MEDS: Amiodarone 200 MG TAB PO SCH ×2 (08:34→22:23)
[2022-07-31] MEDS: metroNIDAZOLE 500 MG TAB PO SCH ×2 (08:34→22:23)
[2022-07-31] MEDS: Gabapentin 300 MG CAP PO SCH ×2 (08:34→22:24)
[2022-07-31] MEDS: Nystatin 500,000 UNITS/5 ML UDCUP SSW SCH ×5 (08:37→22:35)
[2022-07-31] MEDS: Insulin Glargine 30 UNITS/0.3 ML VIAL SC SCH ×3 (08:37→22:33)
[2022-07-31] MEDS: HumaLOG 300 UNITS/3 ML VIAL SC SCH ×3 (08:39→17:21)
[2022-07-31] MEDS: Nystatin Powder 15 GM BOT TOP SCH ×2 (08:41→22:24)
[2022-07-31] MEDS: Senokot S 8.6-50 MG TAB PO SCH ×2 (08:42→22:26)
[2022-07-31] MEDS: Polyethylene Glycol 3350 17 GM Packet PO SCH (08:42)
[2022-07-31] MEDS: predniSONE 5 MG TAB PO SCH (09:47)
[2022-07-31 11:52] LABS: #Eosinphils 0.1 thou/uL (0.0-0.7); #Lymphocytes 0.6 thou/uL (1.20-3.40); #Monocytes 0.4 thou/uL (0.11-0.59); #Neutrophils 4.9 thou/uL (1.40-6.50); %Eosinophils 1.1 % (0.0-10.0); %Lymphocytes 10.1 % (21.0-51.0); %Monocytes 7.4 % (0.0-10.0); %Neutrophils 81.4 % (42.0-75.0); Hemoglobin 9.8 g/dL (14.0-18.0); Mean Corpuscular HGB CONC 32.4 g/dL (32.0-36.0); Mean Corpuscular Hemoglobin 31.1 pg (27.0-31.0); Mean Corpuscular Volume 95.9 fl (78.0-98.0); Platelet Count 131 10x3/uL (130-400); RBC Distribution Width 18.8 % (11.5-14.5); Red Blood Cell (RBC) Count 3.16 mill/uL (4.70-6.10)
[2022-07-31 11:59] LABS: SARS-CoV-2 NAA Rapid Test DETECTED (NotDetected)
[2022-07-31] MEDS ORDERED: Cefepime 2 GM in Sodium Chloride 0.9% 100 ML IVPB SCH (12:15)
[2022-07-31] MEDS: cefTRIAXone\\ROCEPHIN 1 GM in Sodium Chloride 0.9% 100 ML IVPB SCH (12:21)
[2022-07-31] MEDS: SODIUM CHLORIDE 0.9% IVPB SCH (12:40)
[2022-07-31] MEDS: DOBUTAMINE IVPB SCH (12:40)
[2022-07-31] MEDS: Micafungin 100 MG in Sodium Chloride 0.9% 100 ML IVPB SCH (13:49)
[2022-07-31 16:03] LABS: Body Surface Area 2.25
[2022-07-31 16:30] LABS: Creatinine, Urine 36.43 mg/dL (63-166)
[2022-07-31] MEDS: Ipratropium Oral Inhaler INH PRN ×2 (17:26→22:54)
[2022-07-31] MEDS ORDERED: Heparin 10,000 UNITS/ 10 ML VIAL SLOW IVP SCH (23:30)
[2022-08-01 00:07] LABS: Hemoglobin 9.8 g/dL (14.0-18.0); Platelet Count 133 10x3/uL (130-400)
[2022-08-01] MEDS: Heparin 25,000 units/D5W 500 ML IVPB SCH ×2 (00:37→23:39)
[2022-08-01 01:01] LABS: 24 Hr Creatinine 853.76 mg/24 hr (950-2490); 24 Hr Sodium 170.2 mmol/24h (40-220); Creatinine, Urine 37.12 mg/dL (63-166); Potassium, Urine 12.7 mmol/L
[2022-08-01] MEDS: DOBUTAMINE IVPB SCH (05:57)
[2022-08-01] MEDS: SODIUM CHLORIDE 0.9% IVPB SCH (05:57)
[2022-08-01] MEDS: hydrALAZINE 10 MG TAB PO SCH ×2 (05:58→13:29)
[2022-08-01] MEDS: Isosorbide Dinitrate 5 MG TAB PO SCH ×2 (05:58→13:29)
[2022-08-01 06:54] LABS: Anion Gap 13 mmol/L (10-20); BUN (Urea Nitrogen) 62 mg/dL (8.4-25.7); Calc. Creatinine Clearance 23 mL/min (70-130); Calcium 8.5 mg/dL (7.8-10.44); Carbon Dioxide 18 mmol/L (23-31); Chloride 107 mmol/L (98-107); Estimated GFR 13; Glucose 169 mg/dL (80-115); Magnesium 2.2 mg/dL (1.6-2.6); Potassium 4.4 mmol/L (3.5-5.1); Sodium 134 mmol/L (136-145)
[2022-08-01 06:58] LABS: #Eosinphils 0.1 thou/uL (0.0-0.7); #Lymphocytes 0.5 thou/uL (1.20-3.40); #Monocytes 0.4 thou/uL (0.11-0.59); #Neutrophils 5.2 thou/uL (1.40-6.50); %Lymphocytes 8.2 % (21.0-51.0); %Monocytes 6.9 % (0.0-10.0); Hemoglobin 9.4 g/dL (14.0-18.0); Mean Corpuscular HGB CONC 31.8 g/dL (32.0-36.0); Mean Corpuscular Hemoglobin 30.7 pg (27.0-31.0); Mean Corpuscular Volume 96.3 fl (78.0-98.0); Mean Platelet Volume 10.1 fL (7.4-10.4); Platelet Count 130 10x3/uL (130-400); RBC Distribution Width 18.8 % (11.5-14.5); Red Blood Cell (RBC) Count 3.08 mill/uL (4.70-6.10); White Blood Cell (WBC) Count 6.2 10x3/uL (4.8-10.8)
[2022-08-01 07:27] LABS: PTT 141.5 sec (22.9-36.1)
[2022-08-01] MEDS: Insulin Glargine 30 UNITS/0.3 ML VIAL SC SCH ×2 (09:37→21:30)
[2022-08-01] MEDS: HumaLOG 300 UNITS/3 ML VIAL SC SCH ×3 (09:42→17:36)
[2022-08-01] MEDS: Gabapentin 300 MG CAP PO SCH (09:42)
[2022-08-01] MEDS: azaTHIOprine 50 MG TAB PO SCH (09:43)
[2022-08-01] MEDS: metroNIDAZOLE 500 MG TAB PO SCH (09:43)
[2022-08-01] MEDS: predniSONE 5 MG TAB PO SCH (09:44)
[2022-08-01] MEDS: Nystatin 500,000 UNITS/5 ML UDCUP SSW SCH ×2 (09:44→13:29)
[2022-08-01] MEDS: guaiFENesin/DM ER PO SCH (09:44)
[2022-08-01] MEDS: Amiodarone 200 MG TAB PO SCH (09:44)
[2022-08-01] MEDS: Polyethylene Glycol 3350 17 GM Packet PO SCH (09:45)
[2022-08-01] MEDS: Tacrolimus 1 MG CAP PO SCH (09:45)
[2022-08-01] MEDS: Aspirin 81 mg Enteric Coated Tablet PO SCH (09:45)
[2022-08-01] MEDS: Rosuvastatin 20 MG TAB PO SCH (09:45)
[2022-08-01] MEDS: Nystatin Powder 15 GM BOT TOP SCH (09:45)
[2022-08-01] MEDS: Senokot S 8.6-50 MG TAB PO SCH (09:46)
[2022-08-01] MEDS ORDERED: Furosemide 100 MG/10 ML VIAL SLOW IVP SCH (10:45)
[2022-08-01] MEDS ORDERED: Sodium Bicarbonate 150 MEQ in Dextrose 5% in Water 1,000 ML IV SCH (10:45)
[2022-08-01 12:22] LABS: Actual Bicarbonate (HCO3v) 20 mEq/L (22-28); Base Excess -3.8 mEq/L (-2.0 to +3.0); Calcium, Ionized (venous) 1.18 mmol/L (1.16-1.32); Chloride (VBG) 105 mmol/L (98-106); Hemoglobin (Hb) 10.6 g/dL (13.1-17.2); Potassium (VBG) 4.42 mmol/L (3.70-5.30); Sodium 132.5 mmol/L (133-146); pH (venous) 7.44 (7.32-7.43)
[2022-08-01] MEDS: Micafungin 100 MG in Sodium Chloride 0.9% 100 ML IVPB SCH (13:30)
[2022-08-01] MEDS: Ondansetron PF 4 MG/2 ML Vial IVP PRN (13:30)
[2022-08-01 14:17] LABS: Hep B Surf AB Reactive (NonReactive)
[2022-08-01] MEDS ORDERED: Apixaban 5 MG TAB PO SCH (21:00)
[2022-08-01] MEDS: Insulin Regular 300 UNITS/3 ML VIAL SC PRN (21:30)
[2022-08-02] MEDS: Nystatin Powder 15 GM BOT TOP SCH ×3 (01:32→20:49)
[2022-08-02] MEDS: Tacrolimus 1 MG CAP PO SCH ×3 (01:32→20:49)
[2022-08-02] MEDS: Amiodarone 200 MG TAB PO SCH ×3 (01:32→20:49)
[2022-08-02] MEDS: Gabapentin 300 MG CAP PO SCH ×3 (01:32→20:49)
[2022-08-02] MEDS: metroNIDAZOLE 500 MG TAB PO SCH ×3 (01:32→20:47)
[2022-08-02] MEDS: guaiFENesin/DM ER PO SCH ×3 (01:32→20:49)
[2022-08-02] MEDS: Nystatin 500,000 UNITS/5 ML UDCUP SSW SCH ×5 (03:03→21:00)
[2022-08-02] MEDS: Senokot S 8.6-50 MG TAB PO SCH ×4 (03:08→20:59)
[2022-08-02] MEDS: Isosorbide Dinitrate 5 MG TAB PO SCH ×4 (03:12→21:00)
[2022-08-02] MEDS: hydrALAZINE 10 MG TAB PO SCH ×4 (03:12→21:00)
[2022-08-02 05:50] LABS: #Lymphocytes 0.6 thou/uL (1.20-3.40); #Monocytes 0.5 thou/uL (0.11-0.59); #Neutrophils 5.1 thou/uL (1.40-6.50); %Basophils 0.3 % (0.0-1.0); %Eosinophils 0.8 % (0.0-10.0); %Lymphocytes 9.1 % (21.0-51.0); %Monocytes 7.9 % (0.0-10.0); %Neutrophils 81.9 % (42.0-75.0); Hemoglobin 9.5 g/dL (14.0-18.0); Mean Corpuscular HGB CONC 31.7 g/dL (32.0-36.0); Mean Corpuscular Hemoglobin 30.7 pg (27.0-31.0); Mean Corpuscular Volume 96.9 fl (78.0-98.0); Mean Platelet Volume 9.3 fL (7.4-10.4); Platelet Count 164 10x3/uL (130-400); RBC Distribution Width 18.5 % (11.5-14.5); Red Blood Cell (RBC) Count 3.08 mill/uL (4.70-6.10); White Blood Cell (WBC) Count 6.2 10x3/uL (4.8-10.8)
[2022-08-02] MEDS: Insulin Regular 300 UNITS/3 ML VIAL SC PRN (06:10)
[2022-08-02 06:17] LABS: Anion Gap 13 mmol/L (10-20); BUN (Urea Nitrogen) 34 mg/dL (8.4-25.7); Calc. Creatinine Clearance 34 mL/min (70-130); Calcium 8.6 mg/dL (7.8-10.44); Carbon Dioxide 27 mmol/L (23-31); Chloride 98 mmol/L (98-107); Estimated GFR 21; Glucose 289 mg/dL (80-115); Magnesium 1.8 mg/dL (1.6-2.6); Potassium 4.2 mmol/L (3.5-5.1); Sodium 134 mmol/L (136-145)
[2022-08-02] MEDS: Aspirin 81 mg Enteric Coated Tablet PO SCH (08:11)
[2022-08-02] MEDS: Rosuvastatin 20 MG TAB PO SCH (08:12)
[2022-08-02] MEDS: predniSONE 5 MG TAB PO SCH (08:13)
[2022-08-02] MEDS: azaTHIOprine 50 MG TAB PO SCH (08:15)
[2022-08-02] MEDS: Insulin Glargine 30 UNITS/0.3 ML VIAL SC SCH ×3 (08:19→20:53)
[2022-08-02] MEDS: Apixaban 5 MG TAB PO SCH ×2 (08:31→20:48)
[2022-08-02] MEDS: HumaLOG 300 UNITS/3 ML VIAL SC SCH ×3 (08:32→17:33)
[2022-08-02] MEDS: Polyethylene Glycol 3350 17 GM Packet PO SCH (08:33)
[2022-08-02] MEDS ORDERED: Magnesium 2 GM/50 ML(in water) 2 GM in Premix Bag 1 BAG IVPB SCH (08:45)
[2022-08-02] MEDS: Micafungin 100 MG in Sodium Chloride 0.9% 100 ML IVPB SCH (13:00)
[2022-08-02] MEDS: DOBUTamine 500 mg/250 ml 500 MG in Premix Bag 1 BAG IVPB SCH (20:47)
[2022-08-02 21:08] LABS: CMV log 10 Quant 3.89 (.)
[2022-08-03 05:24] LABS: #Lymphocytes 0.7 thou/uL (1.20-3.40); #Monocytes 0.5 thou/uL (0.11-0.59); #Neutrophils 4.8 thou/uL (1.40-6.50); %Eosinophils 0.6 % (0.0-10.0); %Lymphocytes 11.6 % (21.0-51.0); %Monocytes 7.6 % (0.0-10.0); %Neutrophils 80.1 % (42.0-75.0); Hemoglobin 9.5 g/dL (14.0-18.0); Mean Corpuscular HGB CONC 31.5 g/dL (32.0-36.0); Mean Corpuscular Hemoglobin 30.4 pg (27.0-31.0); Mean Corpuscular Volume 96.6 fl (78.0-98.0); Mean Platelet Volume 9.5 fL (7.4-10.4); Platelet Count 170 10x3/uL (130-400); RBC Distribution Width 18.1 % (11.5-14.5); Red Blood Cell (RBC) Count 3.11 mill/uL (4.70-6.10)
[2022-08-03 05:42] LABS: Anion Gap 15 mmol/L (10-20); BUN (Urea Nitrogen) 54 mg/dL (8.4-25.7); Calc. Creatinine Clearance 27 mL/min (70-130); Calcium 9.2 mg/dL (7.8-10.44); Carbon Dioxide 26 mmol/L (23-31); Chloride 98 mmol/L (98-107); Estimated GFR 16; Glucose 197 mg/dL (80-115); Magnesium 2.3 mg/dL (1.6-2.6); Potassium 4.5 mmol/L (3.5-5.1); Sodium 134 mmol/L (136-145)
[2022-08-03] MEDS: Acetaminophen 325 MG TAB PO PRN (06:04)
[2022-08-03] MEDS: Isosorbide Dinitrate 5 MG TAB PO SCH (06:04)
[2022-08-03] MEDS: hydrALAZINE 10 MG TAB PO SCH (06:04)
[2022-08-03] MEDS ORDERED: Heparin 10,000 UNITS/ 10 ML VIAL ONE (08:56)
[2022-08-03] MEDS: Fludrocortisone Acetate 0.1 MG TAB PO SCH (09:01)
[2022-08-03] MEDS: Nystatin 500,000 UNITS/5 ML UDCUP SSW SCH ×4 (09:02→21:24)
[2022-08-03] MEDS: Gabapentin 300 MG CAP PO SCH ×2 (09:03→20:12)
[2022-08-03] MEDS: azaTHIOprine 50 MG TAB PO SCH (09:03)
[2022-08-03] MEDS: metroNIDAZOLE 500 MG TAB PO SCH (09:03)
[2022-08-03] MEDS: predniSONE 5 MG TAB PO SCH (09:03)
[2022-08-03] MEDS: Aspirin 81 mg Enteric Coated Tablet PO SCH (09:03)
[2022-08-03] MEDS: Apixaban 5 MG TAB PO SCH ×2 (09:04→20:12)
[2022-08-03] MEDS: Insulin Glargine 30 UNITS/0.3 ML VIAL SC SCH ×2 (09:04→20:10)
[2022-08-03] MEDS: Rosuvastatin 20 MG TAB PO SCH (09:04)
[2022-08-03] MEDS: Amiodarone 200 MG TAB PO SCH ×2 (09:04→20:12)
[2022-08-03] MEDS: Polyethylene Glycol 3350 17 GM Packet PO SCH (09:05)
[2022-08-03] MEDS: Tacrolimus 1 MG CAP PO SCH ×2 (09:05→20:12)
[2022-08-03] MEDS: Senokot S 8.6-50 MG TAB PO SCH ×2 (09:05→20:14)
[2022-08-03] MEDS: guaiFENesin/DM ER PO SCH ×2 (09:05→20:14)
[2022-08-03] MEDS: Nystatin Powder 15 GM BOT TOP SCH ×2 (09:05→20:13)
[2022-08-03] MEDS: HumaLOG 300 UNITS/3 ML VIAL SC SCH ×3 (09:06→18:18)
[2022-08-03] MEDS ORDERED: Albumin 25% 25 GM/100 ML BOT IVPB SCH (09:15)
[2022-08-03] MEDS: Micafungin 100 MG in Sodium Chloride 0.9% 100 ML IVPB SCH (12:53)
[2022-08-03] MEDS: Insulin Regular 300 UNITS/3 ML VIAL SC PRN (12:58)
[2022-08-03 17:29] LABS: Bilirubin Negative (Negative); Blood, Urine Negative (Negative); CAUTI Indications for Culture Fever or rigors; Clarity Clear (Clear); Glucose, Urine (Dipstick) >=1000 mg/dL (Negative); Ketone, Urine Negative (Negative); Leukocyte 75 Leu/uL (Negative); Nitrite Negative (Negative); Protein, Urine (Dipstick) 70 mg/dL (Neg-Trace); RBC/HPF 0-3 HPF (0-3); Specific Gravity, Urine 1.008 (1.002-1.036); Squamous Epithelial None Seen HPF (0-3); Urobilinogen Normal mg/dL (Less than 2); pH, Urine 7.5 (5.0-9.0)
[2022-08-03 17:33] LABS: Bacteria/HPF 1+ HPF (None Seen)
[2022-08-03 17:35] LABS: Urine Culture Reflex Yes Yes
[2022-08-03] MEDS ORDERED: valGANciclovir 50 MG/ML ORAL SOLN PO SCH (18:00)
[2022-08-03] MEDS: DOBUTamine 500 mg/250 ml 500 MG in Premix Bag 1 BAG IVPB SCH (18:16)
[2022-08-03] MEDS ORDERED: cefTRIAXone\\ROCEPHIN 1 GM in Sodium Chloride 0.9% 100 ML IVPB SCH (21:00)
[2022-08-04 03:59] LABS: #Lymphocytes 0.4 thou/uL (1.20-3.40); #Monocytes 0.3 thou/uL (0.11-0.59); #Neutrophils 3.5 thou/uL (1.40-6.50); %Basophils 0.2 % (0.0-1.0); %Eosinophils 1.1 % (0.0-10.0); %Lymphocytes 8.7 % (21.0-51.0); %Monocytes 6.4 % (0.0-10.0); %Neutrophils 83.6 % (42.0-75.0); Hemoglobin 9.2 g/dL (14.0-18.0); Mean Corpuscular HGB CONC 31.5 g/dL (32.0-36.0); Mean Corpuscular Hemoglobin 30.6 pg (27.0-31.0); Mean Corpuscular Volume 97.2 fl (78.0-98.0); Mean Platelet Volume 9.4 fL (7.4-10.4); Platelet Count 184 10x3/uL (130-400); RBC Distribution Width 18.3 % (11.5-14.5); Red Blood Cell (RBC) Count 3.01 mill/uL (4.70-6.10); White Blood Cell (WBC) Count 4.2 10x3/uL (4.8-10.8)
[2022-08-04 04:19] LABS: Anion Gap 13 mmol/L (10-20); BUN (Urea Nitrogen) 35 mg/dL (8.4-25.7); Calc. Creatinine Clearance 38 mL/min (70-130); Calcium 9.1 mg/dL (7.8-10.44); Carbon Dioxide 26 mmol/L (23-31); Chloride 100 mmol/L (98-107); Estimated GFR 25; Glucose 126 mg/dL (80-115); Potassium 3.8 mmol/L (3.5-5.1); Sodium 135 mmol/L (136-145)
[2022-08-04] MEDS: predniSONE 5 MG TAB PO SCH (09:02)
[2022-08-04] MEDS: Nystatin 500,000 UNITS/5 ML UDCUP SSW SCH ×4 (09:02→22:20)
[2022-08-04] MEDS: azaTHIOprine 50 MG TAB PO SCH (09:02)
[2022-08-04] MEDS: Gabapentin 300 MG CAP PO SCH ×2 (09:03→20:26)
[2022-08-04] MEDS: Amiodarone 200 MG TAB PO SCH ×2 (09:03→20:26)
[2022-08-04] MEDS: Rosuvastatin 20 MG TAB PO SCH (09:03)
[2022-08-04] MEDS: guaiFENesin/DM ER PO SCH ×2 (09:03→20:26)
[2022-08-04] MEDS: Aspirin 81 mg Enteric Coated Tablet PO SCH (09:03)
[2022-08-04] MEDS: Tacrolimus 1 MG CAP PO SCH ×2 (09:03→20:26)
[2022-08-04] MEDS: Apixaban 5 MG TAB PO SCH (09:04)
[2022-08-04] MEDS: Fludrocortisone Acetate 0.1 MG TAB PO SCH (09:04)
[2022-08-04] MEDS: Insulin Glargine 30 UNITS/0.3 ML VIAL SC SCH ×2 (09:05→20:29)
[2022-08-04] MEDS: HumaLOG 300 UNITS/3 ML VIAL SC SCH ×3 (09:05→17:45)
[2022-08-04] MEDS: Nystatin Powder 15 GM BOT TOP SCH ×2 (09:05→20:27)
[2022-08-04] MEDS: Apixaban 2.5 MG TAB PO SCH ×2 (09:17→20:26)
[2022-08-04] MEDS: Senokot S 8.6-50 MG TAB PO SCH ×2 (09:18→20:30)
[2022-08-04] MEDS: Polyethylene Glycol 3350 17 GM Packet PO SCH (09:18)
[2022-08-04] MEDS: DOBUTamine 500 mg/250 ml 500 MG in Premix Bag 1 BAG IVPB SCH (11:58)
[2022-08-04 14:22] VITALS: BMI 27.9
[2022-08-04] MEDS ORDERED: Fluticasone Propionate Nasal Spray 16 gm Bottle NASAL SCH (18:30)
[2022-08-05 00:02] LABS: Hemoglobin 9.1 g/dL (14.0-18.0); Platelet Count 205 10x3/uL (130-400)
[2022-08-05 04:36] LABS: #Lymphocytes 0.4 thou/uL (1.20-3.40); #Monocytes 0.3 thou/uL (0.11-0.59); #Neutrophils 3.8 thou/uL (1.40-6.50); %Basophils 0.3 % (0.0-1.0); %Eosinophils 0.7 % (0.0-10.0); %Lymphocytes 8.3 % (21.0-51.0); %Monocytes 6.3 % (0.0-10.0); %Neutrophils 84.4 % (42.0-75.0); Hemoglobin 8.9 g/dL (14.0-18.0); Mean Corpuscular HGB CONC 32.1 g/dL (32.0-36.0); Mean Corpuscular Volume 96.7 fl (78.0-98.0); Mean Platelet Volume 9.1 fL (7.4-10.4); Platelet Count 211 10x3/uL (130-400); RBC Distribution Width 18.2 % (11.5-14.5); Red Blood Cell (RBC) Count 2.86 mill/uL (4.70-6.10); White Blood Cell (WBC) Count 4.5 10x3/uL (4.8-10.8)
[2022-08-05 04:54] LABS: Anion Gap 13 mmol/L (10-20); BUN (Urea Nitrogen) 49 mg/dL (8.4-25.7); Calc. Creatinine Clearance 33 mL/min (70-130); Calcium 8.9 mg/dL (7.8-10.44); Carbon Dioxide 25 mmol/L (23-31); Chloride 99 mmol/L (98-107); Estimated GFR 20; Glucose 176 mg/dL (80-115); Magnesium 1.9 mg/dL (1.6-2.6); Potassium 3.6 mmol/L (3.5-5.1); Sodium 133 mmol/L (136-145)
[2022-08-05] MEDS ORDERED: DOBUTamine 500 mg/250 ml 500 MG in Premix Bag 1 BAG IVPB SCH (07:30)
[2022-08-05] MEDS ORDERED: DOPamine 400 MG/D5W 250 ML 250 ML IVPB SCH (07:30)
[2022-08-05] MEDS ORDERED: Magnesium 2 GM/50 ML(in water) 2 GM in Premix Bag 1 BAG IVPB SCH (08:00)
[2022-08-05] MEDS: Fludrocortisone Acetate 0.1 MG TAB PO SCH (08:13)
[2022-08-05] MEDS: Amiodarone 200 MG TAB PO SCH ×2 (08:13→20:15)
[2022-08-05] MEDS: azaTHIOprine 50 MG TAB PO SCH (08:13)
[2022-08-05] MEDS: Aspirin 81 mg Enteric Coated Tablet PO SCH (08:13)
[2022-08-05] MEDS: Rosuvastatin 20 MG TAB PO SCH (08:13)
[2022-08-05] MEDS: predniSONE 5 MG TAB PO SCH (08:13)
[2022-08-05] MEDS: Apixaban 2.5 MG TAB PO SCH ×2 (08:13→20:16)
[2022-08-05] MEDS: Gabapentin 300 MG CAP PO SCH ×2 (08:14→20:15)
[2022-08-05] MEDS: guaiFENesin/DM ER PO SCH ×2 (08:14→20:16)
[2022-08-05] MEDS: HumaLOG 300 UNITS/3 ML VIAL SC SCH ×3 (08:14→17:04)
[2022-08-05] MEDS: Tacrolimus 1 MG CAP PO SCH ×2 (08:14→20:15)
[2022-08-05] MEDS: Insulin Glargine 30 UNITS/0.3 ML VIAL SC SCH ×3 (08:14→20:07)
[2022-08-05] MEDS: Nystatin 500,000 UNITS/5 ML UDCUP SSW SCH ×4 (08:14→22:05)
[2022-08-05] MEDS: Polyethylene Glycol 3350 17 GM Packet PO SCH (08:15)
[2022-08-05] MEDS: Nystatin Powder 15 GM BOT TOP SCH ×2 (08:15→20:17)
[2022-08-05] MEDS: Fluticasone Propionate Nasal Spray 16 gm Bottle NASAL SCH (08:15)
[2022-08-05] MEDS: Senokot S 8.6-50 MG TAB PO SCH ×2 (08:16→20:17)
[2022-08-05] MEDS: Ivabradine 5 MG TAB PO SCH ×2 (08:30→20:05)
[2022-08-05] MEDS ORDERED: EPOETIN ALFA-EPBX (ESRD) 4,000 UNIT/ML VIAL SC SCH (09:00)
[2022-08-05] MEDS ORDERED: EPOETIN ALFA-EPBX (ESRD) 10,000 UNIT/ML VIAL SC SCH (09:00)
[2022-08-05] MEDS ORDERED: Heparin 10,000 UNITS/ 10 ML VIAL ONE (09:02)
[2022-08-05 23:36] LABS: Tacrolimus 5.2 ng/mL (2.0-20.0)
[2022-08-06 04:01] LABS: #Eosinphils 0.1 thou/uL (0.0-0.7); #Lymphocytes 0.6 thou/uL (1.20-3.40); #Monocytes 0.3 thou/uL (0.11-0.59); #Neutrophils 3.6 thou/uL (1.40-6.50); %Basophils 0.2 % (0.0-1.0); %Eosinophils 1.3 % (0.0-10.0); %Lymphocytes 12.5 % (21.0-51.0); %Monocytes 7.2 % (0.0-10.0); %Neutrophils 78.9 % (42.0-75.0); Hemoglobin 8.6 g/dL (14.0-18.0); Mean Corpuscular HGB CONC 31.6 g/dL (32.0-36.0); Mean Corpuscular Hemoglobin 30.8 pg (27.0-31.0); Mean Corpuscular Volume 97.4 fl (78.0-98.0); Platelet Count 227 10x3/uL (130-400); RBC Distribution Width 17.9 % (11.5-14.5); Red Blood Cell (RBC) Count 2.78 mill/uL (4.70-6.10); White Blood Cell (WBC) Count 4.6 10x3/uL (4.8-10.8)
[2022-08-06 04:32] LABS: Anion Gap 14 mmol/L (10-20); BUN (Urea Nitrogen) 35 mg/dL (8.4-25.7); Calc. Creatinine Clearance 41 mL/min (70-130); Calcium 8.7 mg/dL (7.8-10.44); Carbon Dioxide 26 mmol/L (23-31); Chloride 99 mmol/L (98-107); Estimated GFR 26; Glucose 141 mg/dL (80-115); Magnesium 2.1 mg/dL (1.6-2.6); Potassium 3.9 mmol/L (3.5-5.1); Sodium 135 mmol/L (136-145)
[2022-08-06] MEDS: Ivabradine 5 MG TAB PO SCH ×2 (09:13→20:45)
[2022-08-06] MEDS: Nystatin 500,000 UNITS/5 ML UDCUP SSW SCH ×4 (09:13→21:35)
[2022-08-06] MEDS: Apixaban 2.5 MG TAB PO SCH ×2 (09:14→20:45)
[2022-08-06] MEDS: Aspirin 81 mg Enteric Coated Tablet PO SCH (09:14)
[2022-08-06] MEDS: guaiFENesin/DM ER PO SCH ×2 (09:14→20:45)
[2022-08-06] MEDS: Rosuvastatin 20 MG TAB PO SCH (09:14)
[2022-08-06] MEDS: Insulin Glargine 30 UNITS/0.3 ML VIAL SC SCH ×2 (09:14→20:43)
[2022-08-06] MEDS: Amiodarone 200 MG TAB PO SCH ×2 (09:14→20:45)
[2022-08-06] MEDS: Tacrolimus 1 MG CAP PO SCH ×2 (09:14→20:44)
[2022-08-06] MEDS: Gabapentin 300 MG CAP PO SCH ×2 (09:14→20:44)
[2022-08-06] MEDS: Fludrocortisone Acetate 0.1 MG TAB PO SCH (09:14)
[2022-08-06] MEDS: azaTHIOprine 50 MG TAB PO SCH (09:14)
[2022-08-06] MEDS: HumaLOG 300 UNITS/3 ML VIAL SC SCH ×4 (09:14→18:40)
[2022-08-06] MEDS: predniSONE 5 MG TAB PO SCH (09:15)
[2022-08-06] MEDS: Nystatin Powder 15 GM BOT TOP SCH ×2 (09:15→20:45)
[2022-08-06] MEDS: Senokot S 8.6-50 MG TAB PO SCH ×2 (09:15→20:44)
[2022-08-06] MEDS: Fluticasone Propionate Nasal Spray 16 gm Bottle NASAL SCH (09:15)
[2022-08-06] MEDS: Polyethylene Glycol 3350 17 GM Packet PO SCH (09:15)
[2022-08-06] MEDS: Micafungin 100 MG in Sodium Chloride 0.9% 100 ML IVPB SCH (11:44)
[2022-08-06] MEDS: Acetaminophen 325 MG TAB PO PRN (18:43)
[2022-08-06 18:45] LABS: Bacteria/HPF 2+ HPF (None Seen); Bilirubin Negative (Negative); Blood, Urine 2+ (Negative); Clarity Turbid (Clear); Glucose, Urine (Dipstick) Greater than 1000 mg/dL (Negative); Ketone, Urine Negative (Negative); Leukocyte 250 Leu/uL (Negative); Nitrite Negative (Negative); Protein, Urine (Dipstick) 100 mg/dL (Neg-Trace); RBC/HPF 0-3 HPF (0-3); Renal Epithelial 0-3 HPF (None Seen); Specific Gravity, Urine 1.013 (1.002-1.036); Squamous Epithelial 0-3 HPF (0-3); Urobilinogen Normal mg/dL (Less than 2)
[2022-08-06] MEDS: DOBUTamine 500 mg/250 ml 500 MG in Premix Bag 1 BAG IVPB SCH (20:42)
[2022-08-06 23:38] LABS: Platelet Count 224 10x3/uL (130-400)
[2022-08-07 04:01] LABS: #Lymphocytes 0.5 thou/uL (1.20-3.40); #Monocytes 0.2 thou/uL (0.11-0.59); #Neutrophils 3.7 thou/uL (1.40-6.50); %Basophils 0.4 % (0.0-1.0); %Lymphocytes 11.8 % (21.0-51.0); %Monocytes 4.2 % (0.0-10.0); %Neutrophils 82.6 % (42.0-75.0); Hemoglobin 8.1 g/dL (14.0-18.0); Mean Corpuscular HGB CONC 32.1 g/dL (32.0-36.0); Mean Corpuscular Hemoglobin 30.7 pg (27.0-31.0); Mean Corpuscular Volume 95.8 fl (78.0-98.0); Platelet Count 227 10x3/uL (130-400); RBC Distribution Width 17.7 % (11.5-14.5); Red Blood Cell (RBC) Count 2.62 mill/uL (4.70-6.10); White Blood Cell (WBC) Count 4.4 10x3/uL (4.8-10.8)
[2022-08-07 04:54] LABS: Anion Gap 14 mmol/L (10-20); BUN (Urea Nitrogen) 50 mg/dL (8.4-25.7); Calc. Creatinine Clearance 31 mL/min (70-130); Calcium 8.4 mg/dL (7.8-10.44); Carbon Dioxide 24 mmol/L (23-31); Chloride 97 mmol/L (98-107); Estimated GFR 18; Glucose 222 mg/dL (80-115); Magnesium 2.1 mg/dL (1.6-2.6); Sodium 131 mmol/L (136-145)
[2022-08-07] MEDS: azaTHIOprine 50 MG TAB PO SCH (08:18)
[2022-08-07] MEDS: Aspirin 81 mg Enteric Coated Tablet PO SCH (08:18)
[2022-08-07] MEDS: Apixaban 2.5 MG TAB PO SCH (08:19)
[2022-08-07] MEDS: Rosuvastatin 20 MG TAB PO SCH (08:19)
[2022-08-07] MEDS: Amiodarone 200 MG TAB PO SCH ×2 (08:19→20:17)
[2022-08-07] MEDS: Gabapentin 300 MG CAP PO SCH ×2 (08:19→20:17)
[2022-08-07] MEDS: guaiFENesin/DM ER PO SCH ×2 (08:19→20:17)
[2022-08-07] MEDS: predniSONE 5 MG TAB PO SCH (08:19)
[2022-08-07] MEDS: Tacrolimus 1 MG CAP PO SCH ×2 (08:19→20:17)
[2022-08-07] MEDS: Insulin Glargine 30 UNITS/0.3 ML VIAL SC SCH ×2 (08:20→20:18)
[2022-08-07] MEDS: Nystatin 500,000 UNITS/5 ML UDCUP SSW SCH ×5 (08:20→20:22)
[2022-08-07] MEDS: HumaLOG 300 UNITS/3 ML VIAL SC SCH ×3 (08:20→18:05)
[2022-08-07] MEDS: Polyethylene Glycol 3350 17 GM Packet PO SCH (08:21)
[2022-08-07] MEDS: Fludrocortisone Acetate 0.1 MG TAB PO SCH (08:22)
[2022-08-07] MEDS: Senokot S 8.6-50 MG TAB PO SCH ×2 (08:22→20:18)
[2022-08-07] MEDS: Ivabradine 5 MG TAB PO SCH ×2 (08:23→20:17)
[2022-08-07] MEDS: Fluticasone Propionate Nasal Spray 16 gm Bottle NASAL SCH (08:24)
[2022-08-07] MEDS: Nystatin Powder 15 GM BOT TOP SCH ×2 (08:35→20:18)
[2022-08-07] MEDS: Micafungin 100 MG in Sodium Chloride 0.9% 100 ML IVPB SCH (10:18)
[2022-08-07] MEDS: DOBUTamine 500 mg/250 ml 500 MG in Premix Bag 1 BAG IVPB SCH (17:31)
[2022-08-07] MEDS: Ondansetron PF 4 MG/2 ML Vial IVP PRN ×2 (18:01→23:35)
[2022-08-07] MEDS: Apixaban 5 MG TAB PO SCH (20:17)
[2022-08-07] MEDS: Acetaminophen 325 MG TAB PO PRN (23:35)
[2022-08-08 05:43] LABS: #Eosinphils 0.1 thou/uL (0.0-0.7); #Lymphocytes 0.3 thou/uL (1.20-3.40); #Monocytes 0.2 thou/uL (0.11-0.59); %Basophils 0.9 % (0.0-1.0); %Lymphocytes 10.9 % (21.0-51.0); %Monocytes 7.5 % (0.0-10.0); %Neutrophils 78.6 % (42.0-75.0); Hemoglobin 7.4 g/dL (14.0-18.0); Mean Corpuscular HGB CONC 31.7 g/dL (32.0-36.0); Mean Corpuscular Hemoglobin 30.4 pg (27.0-31.0); Mean Corpuscular Volume 96.1 fl (78.0-98.0); Mean Platelet Volume 9.1 fL (7.4-10.4); Platelet Count 240 10x3/uL (130-400); RBC Distribution Width 17.7 % (11.5-14.5); Red Blood Cell (RBC) Count 2.42 mill/uL (4.70-6.10); White Blood Cell (WBC) Count 2.5 10x3/uL (4.8-10.8)
[2022-08-08 06:02] LABS: Anion Gap 12 mmol/L (10-20); BUN (Urea Nitrogen) 61 mg/dL (8.4-25.7); Calc. Creatinine Clearance 27 mL/min (70-130); Calcium 8.5 mg/dL (7.8-10.44); Carbon Dioxide 25 mmol/L (23-31); Chloride 97 mmol/L (98-107); Estimated GFR 15; Glucose 174 mg/dL (80-115); Sodium 130 mmol/L (136-145)
[2022-08-08 08:55] LABS: #Lymphocytes 0.3 thou/uL (1.20-3.40); #Monocytes 0.2 thou/uL (0.11-0.59); #Neutrophils 2.1 thou/uL (1.40-6.50); %Eosinophils 1.6 % (0.0-10.0); %Lymphocytes 9.5 % (21.0-51.0); %Neutrophils 81.9 % (42.0-75.0); Hemoglobin 7.9 g/dL (14.0-18.0); Mean Corpuscular HGB CONC 31.7 g/dL (32.0-36.0); Mean Corpuscular Hemoglobin 30.8 pg (27.0-31.0); Mean Platelet Volume 8.9 fL (7.4-10.4); Platelet Count 275 10x3/uL (130-400); RBC Distribution Width 17.7 % (11.5-14.5); Red Blood Cell (RBC) Count 2.58 mill/uL (4.70-6.10); White Blood Cell (WBC) Count 2.6 10x3/uL (4.8-10.8)
[2022-08-08] MEDS ORDERED: Apixaban 5 MG TAB PO SCH (09:00)
[2022-08-08] MEDS: Nystatin Powder 15 GM BOT TOP SCH ×2 (09:08→20:48)
[2022-08-08] MEDS: Fluticasone Propionate Nasal Spray 16 gm Bottle NASAL SCH (09:08)
[2022-08-08] MEDS: Insulin Glargine 30 UNITS/0.3 ML VIAL SC SCH ×2 (09:08→20:46)
[2022-08-08] MEDS: Rosuvastatin 20 MG TAB PO SCH (09:09)
[2022-08-08] MEDS: azaTHIOprine 50 MG TAB PO SCH (09:09)
[2022-08-08] MEDS: Gabapentin 300 MG CAP PO SCH ×2 (09:09→20:47)
[2022-08-08] MEDS: Tacrolimus 1 MG CAP PO SCH ×2 (09:10→20:47)
[2022-08-08] MEDS: Fludrocortisone Acetate 0.1 MG TAB PO SCH (09:10)
[2022-08-08] MEDS: Ivabradine 5 MG TAB PO SCH ×2 (09:10→20:49)
[2022-08-08] MEDS: Aspirin 81 mg Enteric Coated Tablet PO SCH (09:10)
[2022-08-08] MEDS: predniSONE 5 MG TAB PO SCH (09:11)
[2022-08-08] MEDS: guaiFENesin/DM ER PO SCH ×2 (09:11→20:46)
[2022-08-08] MEDS: Apixaban 5 MG TAB PO SCH ×2 (09:11→20:47)
[2022-08-08] MEDS: Amiodarone 200 MG TAB PO SCH ×2 (09:11→20:46)
[2022-08-08] MEDS: Senokot S 8.6-50 MG TAB PO SCH ×2 (09:12→20:47)
[2022-08-08] MEDS: Polyethylene Glycol 3350 17 GM Packet PO SCH (09:12)
[2022-08-08] MEDS: HumaLOG 300 UNITS/3 ML VIAL SC SCH ×3 (09:12→18:41)
[2022-08-08] MEDS ORDERED: Heparin 10,000 UNITS/ 10 ML VIAL ONE (10:08)
[2022-08-08] MEDS: Ondansetron PF 4 MG/2 ML Vial IVP PRN (10:18)
[2022-08-08] MEDS: Acetaminophen 325 MG TAB PO PRN (10:24)
[2022-08-08] MEDS: Insulin Regular 300 UNITS/3 ML VIAL SC PRN (11:58)
[2022-08-08] MEDS: DOBUTamine 500 mg/250 ml 500 MG in Premix Bag 1 BAG IVPB SCH (15:31)
[2022-08-08 23:54] LABS: Hemoglobin 8.6 g/dL (14.0-18.0); Platelet Count 280 10x3/uL (130-400)
[2022-08-09 06:20] LABS: #Eosinphils 0.1 thou/uL (0.0-0.7); #Lymphocytes 0.4 thou/uL (1.20-3.40); #Monocytes 0.3 thou/uL (0.11-0.59); %Basophils 0.7 % (0.0-1.0); %Lymphocytes 14.1 % (21.0-51.0); %Monocytes 9.7 % (0.0-10.0); %Neutrophils 73.5 % (42.0-75.0); Hemoglobin 8.7 g/dL (14.0-18.0); Mean Corpuscular HGB CONC 32.5 g/dL (32.0-36.0); Mean Corpuscular Volume 95.3 fl (78.0-98.0); Mean Platelet Volume 8.7 fL (7.4-10.4); Platelet Count 313 10x3/uL (130-400); RBC Distribution Width 17.2 % (11.5-14.5); Red Blood Cell (RBC) Count 2.79 mill/uL (4.70-6.10); White Blood Cell (WBC) Count 2.8 10x3/uL (4.8-10.8)
[2022-08-09] MEDS ORDERED: Midodrine HCl 5 MG TAB PO SCH ×3 (06:30→15:00)
[2022-08-09 06:46] LABS: Anion Gap 11 mmol/L (10-20); BUN (Urea Nitrogen) 45 mg/dL (8.4-25.7); Calc. Creatinine Clearance 37 mL/min (70-130); Calcium 8.6 mg/dL (7.8-10.44); Carbon Dioxide 28 mmol/L (23-31); Chloride 97 mmol/L (98-107); Estimated GFR 23; Glucose 141 mg/dL (80-115); Sodium 132 mmol/L (136-145)
[2022-08-09 07:21] LABS: SARS-CoV-2 NAA Rapid Test DETECTED (NotDetected)
[2022-08-09] MEDS: Fludrocortisone Acetate 0.1 MG TAB PO SCH (09:49)
[2022-08-09] MEDS: Ondansetron PF 4 MG/2 ML Vial IVP PRN (09:49)
[2022-08-09] MEDS: azaTHIOprine 50 MG TAB PO SCH (09:49)
[2022-08-09] MEDS: Rosuvastatin 20 MG TAB PO SCH (09:49)
[2022-08-09] MEDS: guaiFENesin/DM ER PO SCH ×2 (09:50→20:28)
[2022-08-09] MEDS: Amiodarone 200 MG TAB PO SCH ×2 (09:50→20:27)
[2022-08-09] MEDS: Gabapentin 300 MG CAP PO SCH ×2 (09:50→20:28)
[2022-08-09] MEDS: predniSONE 5 MG TAB PO SCH (09:50)
[2022-08-09] MEDS: Apixaban 5 MG TAB PO SCH ×2 (09:50→20:27)
[2022-08-09] MEDS: Tacrolimus 1 MG CAP PO SCH ×2 (09:50→20:27)
[2022-08-09] MEDS: Aspirin 81 mg Enteric Coated Tablet PO SCH (09:50)
[2022-08-09] MEDS: Insulin Glargine 30 UNITS/0.3 ML VIAL SC SCH ×2 (09:51→20:28)
[2022-08-09] MEDS: HumaLOG 300 UNITS/3 ML VIAL SC SCH ×3 (09:51→17:03)
[2022-08-09] MEDS: Nystatin Powder 15 GM BOT TOP SCH ×2 (09:51→21:17)
[2022-08-09] MEDS: Fluticasone Propionate Nasal Spray 16 gm Bottle NASAL SCH (09:51)
[2022-08-09] MEDS: Polyethylene Glycol 3350 17 GM Packet PO SCH (09:51)
[2022-08-09] MEDS: Acetaminophen 325 MG TAB PO PRN (09:52)
[2022-08-09] MEDS: Senokot S 8.6-50 MG TAB PO SCH ×2 (09:52→20:27)
[2022-08-09 12:40] VITALS: BP 101/44
[2022-08-09] MEDS: Midodrine HCl 5 MG TAB PO SCH (20:27)
[2022-08-10 04:25] LABS: #Eosinphils 0.1 thou/uL (0.0-0.7); #Lymphocytes 0.4 thou/uL (1.20-3.40); #Monocytes 0.3 thou/uL (0.11-0.59); #Neutrophils 2.2 thou/uL (1.40-6.50); %Basophils 0.3 % (0.0-1.0); %Eosinophils 3.1 % (0.0-10.0); %Monocytes 10.9 % (0.0-10.0); %Neutrophils 72.6 % (42.0-75.0); Hemoglobin 8.8 g/dL (14.0-18.0); Mean Corpuscular HGB CONC 31.9 g/dL (32.0-36.0); Mean Corpuscular Hemoglobin 30.5 pg (27.0-31.0); Mean Corpuscular Volume 95.6 fl (78.0-98.0); Mean Platelet Volume 8.5 fL (7.4-10.4); Platelet Count 334 10x3/uL (130-400); RBC Distribution Width 17.2 % (11.5-14.5); Red Blood Cell (RBC) Count 2.89 mill/uL (4.70-6.10)
[2022-08-10 04:45] LABS: Anion Gap 14 mmol/L (10-20); BUN (Urea Nitrogen) 56 mg/dL (8.4-25.7); Calc. Creatinine Clearance 28 mL/min (70-130); Calcium 8.5 mg/dL (7.8-10.44); Carbon Dioxide 25 mmol/L (23-31); Chloride 98 mmol/L (98-107); Estimated GFR 17; Glucose 203 mg/dL (80-115); Magnesium 2.2 mg/dL (1.6-2.6); Sodium 133 mmol/L (136-145)
[2022-08-10] MEDS: Insulin Regular 300 UNITS/3 ML VIAL SC PRN (06:41)
[2022-08-10] MEDS ORDERED: Heparin 10,000 UNITS/ 10 ML VIAL ONE (08:40)
[2022-08-10] MEDS ORDERED: Amiodarone 200 MG TAB PO SCH (09:00)
[2022-08-10] MEDS ORDERED: Digoxin 0.05 MG/ML Oral Solution PO SCH (09:00)
[2022-08-10] MEDS: Gabapentin 300 MG CAP PO SCH ×2 (09:14→20:16)
[2022-08-10] MEDS: azaTHIOprine 50 MG TAB PO SCH (09:14)
[2022-08-10] MEDS: Tacrolimus 1 MG CAP PO SCH ×2 (09:14→20:16)
[2022-08-10] MEDS: Midodrine HCl 5 MG TAB PO SCH ×3 (09:14→20:16)
[2022-08-10] MEDS: predniSONE 5 MG TAB PO SCH (09:15)
[2022-08-10] MEDS: Aspirin 81 mg Enteric Coated Tablet PO SCH (09:15)
[2022-08-10] MEDS: Insulin Glargine 30 UNITS/0.3 ML VIAL SC SCH ×2 (09:15→20:16)
[2022-08-10] MEDS: guaiFENesin/DM ER PO SCH ×2 (09:15→20:16)
[2022-08-10] MEDS: Rosuvastatin 20 MG TAB PO SCH (09:15)
[2022-08-10] MEDS: Apixaban 5 MG TAB PO SCH ×2 (09:15→20:16)
[2022-08-10] MEDS: HumaLOG 300 UNITS/3 ML VIAL SC SCH ×3 (09:16→17:35)
[2022-08-10] MEDS ORDERED: Lidocaine 1% w/Epinephrine 1:100K 30 ML VIAL FS PRN (10:28)
[2022-08-10] MEDS ORDERED: Lidocaine 1% w/Epinephrine 1:100K 20 ML VIAL NERVE BLCK PRN (11:04)
[2022-08-10] MEDS: Fluticasone Propionate Nasal Spray 16 gm Bottle NASAL SCH (11:47)
[2022-08-10] MEDS: Nystatin Powder 15 GM BOT TOP SCH ×2 (11:47→20:19)
[2022-08-10] MEDS: Polyethylene Glycol 3350 17 GM Packet PO SCH (11:47)
[2022-08-10] MEDS: Senokot S 8.6-50 MG TAB PO SCH ×2 (11:48→20:20)
[2022-08-10] MEDS: Fludrocortisone Acetate 0.1 MG TAB PO SCH (11:48)
[2022-08-10 21:23] VITALS: TEMP 98.4
== END 2022-08-10 21:25 | DRG 177 ==
LOC: NEURO 06:11 → OBSVTOIN 07-11 12:53 → IMCU/EMU 08-01 18:19
PROVIDERS: ADMIT Internal Medicine; ATTEND Internal Medicine
PROC: 06HY33Z Insertion of Infusion Device into Lower Vein, Percutaneous Approach (ICD-10-PCS; principal; 2022-07-22)
PROC: 02HV33Z Insertion of Infusion Device into Superior Vena Cava, Percutaneous Approach (ICD-10-PCS; 2022-07-24)
PROC: B518ZZA Fluoroscopy of Superior Vena Cava, Guidance (ICD-10-PCS; 2022-07-24)
PROC: 02PYX3Z Removal of Infusion Device from Great Vessel, External Approach (ICD-10-PCS; 2022-07-28)
PROC: 02HV33Z Insertion of Infusion Device into Superior Vena Cava, Percutaneous Approach (ICD-10-PCS; 2022-07-28)
PROC: B518ZZA Fluoroscopy of Superior Vena Cava, Guidance (ICD-10-PCS; 2022-07-28)
PROC: 30233N1 Transfusion of Nonautologous Red Blood Cells into Peripheral Vein, Percutaneous Approach (ICD-10-PCS; 2022-08-08)
DX: U07.1 COVID-19 (principal); I50.43 Acute on chronic combined systolic (congestive) and diastolic (congestive) heart failure; J96.01 Acute respiratory failure with hypoxia; J12.82 Pneumonia due to coronavirus disease 2019; N18.6 End stage renal disease; R57.0 Cardiogenic shock; E87.20 Acidosis, unspecified; N17.9 Acute kidney failure, unspecified; B37.0 Candidal stomatitis; I13.2 Hypertensive heart and chronic kidney disease with heart failure and with stage 5 chronic kidney disease, or end stage renal disease; I47.20 Ventricular tachycardia, unspecified; I82.412 Acute embolism and thrombosis of left femoral vein; B25.9 Cytomegaloviral disease, unspecified; E78.5 Hyperlipidemia, unspecified; E11.22 Type 2 diabetes mellitus with diabetic chronic kidney disease; I25.10 Atherosclerotic heart disease of native coronary artery without angina pectoris; K14.0 Glossitis; I25.5 Ischemic cardiomyopathy; E88.81 Metabolic syndrome and other insulin resistance; D63.1 Anemia in chronic kidney disease; K21.9 Gastro-esophageal reflux disease without esophagitis; E11.51 Type 2 diabetes mellitus with diabetic peripheral angiopathy without gangrene; K12.1 Other forms of stomatitis; K59.00 Constipation, unspecified; Z96.641 Presence of right artificial hip joint; Z99.2 Dependence on renal dialysis; Z79.82 Long term (current) use of aspirin; Z79.899 Other long term (current) drug therapy; Z95.1 Presence of aortocoronary bypass graft; Z95.5 Presence of coronary angioplasty implant and graft; Z89.511 Acquired absence of right leg below knee; I25.2 Old myocardial infarction; Z79.4 Long term (current) use of insulin
CPT/HCPCS: 36415; 36416; 36430; 36600; 51701; 51798; 71045; 80048; 80053; 80197; 81001; 82553; 82570; 82575; 82805; 83735; 83880; 84133; 84156; 84300; 84484; 85025; 85730; 86704; 86706; 86850; 86900; 86901; 87040; 87086; 87340; 87497; 90935; 93005; 93010; 93306; 93923; 94640; 94664; 96372; 97139; C1751; G0257; G0378; J0360; J0611; J0690; J0692; J0696; J1250; J1265; J1580; J1642; J1644; J1815; J1940; J2001; J2060; J2248; J2250; J2405; J2704; J3010; J3475; J3480; J3490; J7030; J7050; J7070; J7120; J7500; J7507; J7512; J7620; J8540; P9016; P9047; Q0163; Q5105; U0002; U0003; U0005

== ENCOUNTER 2022-08-17 17:48 | Emergency (ER) | payer BC ==
[~2022-08-17 17:48] MED LIST: Iopamidol-370 76% 500 ML 1 ML ONE
[2022-08-17] MEDS ORDERED: Ondansetron PF 4 MG/2 ML Vial ONE (18:19)
[2022-08-17] MEDS ORDERED: Fentanyl 100 MCG/2 ML VIAL ONE (18:19)
[2022-08-17 19:52] LABS: Hemoglobin 8.8 g/dL (14.0-18.0); Mean Corpuscular HGB CONC 31.7 g/dL (32.0-36.0); Mean Corpuscular Hemoglobin 30.4 pg (27.0-31.0); Mean Platelet Volume 8.4 fL (7.4-10.4); Platelet Count 421 10x3/uL (130-400); RBC Distribution Width 17.5 % (11.5-14.5); Red Blood Cell (RBC) Count 2.89 mill/uL (4.70-6.10); White Blood Cell (WBC) Count 9.5 10x3/uL (4.8-10.8)
[2022-08-17 20:13] LABS: ALT (SGPT) 12 U/L (8-55); AST (SGOT) 22 U/L (5-34); Albumin 3.1 g/dL (3.4-4.8); Alkaline Phosphatase 60 U/L (40-110); Anion Gap 14 mmol/L (10-20); BUN (Urea Nitrogen) 27 mg/dL (8.4-25.7); Bilirubin, Total 1.3 mg/dL (0.2-1.2); CK (CPK) 53 U/L (30-200); Calc. Creatinine Clearance 0 mL/min (70-130); Calcium 8.9 mg/dL (7.8-10.44); Carbon Dioxide 28 mmol/L (23-31); Chloride 99 mmol/L (98-107); Estimated GFR 18; Globulin 3.5 g/dL (2.4-3.5); Glucose 197 mg/dL (80-115); Lipase 5 U/L (8-78); Potassium 4.2 mmol/L (3.5-5.1); Protein, Total 6.6 g/dL (5.8-8.1); Sodium 137 mmol/L (136-145)
[2022-08-17 20:16] LABS: Band 16 % (5-11); Hypochromia SLIGHT = 6-15 cells (100X) (0-5/hpf); Lymphocytes 9 % (21-51); MDiff Complete? YES; Monocytes 9 % (0-10); Neutrophil 66 % (42-75); Platelet Morphology Comment Appears Increased
[2022-08-17 20:33] LABS: CKMB 1.3 ng/mL (0-6.6)
== END 2022-08-17 21:09 ==
LOC: ERS 17:48
DX: R07.89 Other chest pain (principal); I13.2 Hypertensive heart and chronic kidney disease with heart failure and with stage 5 chronic kidney disease, or end stage renal disease; N18.6 End stage renal disease; I50.9 Heart failure, unspecified; E11.43 Type 2 diabetes mellitus with diabetic autonomic (poly)neuropathy; K31.84 Gastroparesis; E78.5 Hyperlipidemia, unspecified
CPT/HCPCS: 71045; 71275; 82550; 82553; 83690; 83880; 84484; 85379; 93005; 96374; 96375; J2405; J3010; Q9967

== ENCOUNTER 2022-08-31 14:59 | Inpatient (IN) | payer BC ==
[2022-08-31 16:19] LABS: Hemoglobin 8.4 g/dL (14.0-18.0); Mean Corpuscular HGB CONC 31.7 g/dL (32.0-36.0); Mean Corpuscular Hemoglobin 29.7 pg (27.0-31.0); Mean Corpuscular Volume 93.8 fl (78.0-98.0); Mean Platelet Volume 7.6 fL (7.4-10.4); Platelet Count 390 10x3/uL (130-400); RBC Distribution Width 16.8 % (11.5-14.5); Red Blood Cell (RBC) Count 2.81 mill/uL (4.70-6.10); White Blood Cell (WBC) Count 6.7 10x3/uL (4.8-10.8)
[2022-08-31 16:45] LABS: Anisocytosis SLIGHT = 6-15 cells (100X) (0-5/hpf); Band 8 % (5-11); Lymphocytes 3 % (21-51); MDiff Complete? YES; Monocytes 3 % (0-10); Neutrophil 86 % (42-75); Ovalocytes SLIGHT = 2-5 cells (100X) (0-1/hpf); Platelet Morphology Comment Appears Adequate; Polychromasia SLIGHT = 2-3 cells (100X) (0-2/hpf); Vacuoles SLIGHT
[2022-08-31 16:52] LABS: ALT (SGPT) 15 U/L (8-55); AST (SGOT) 29 U/L (5-34); Albumin 2.8 g/dL (3.4-4.8); Alkaline Phosphatase 78 U/L (40-110); Anion Gap 14 mmol/L (10-20); BUN (Urea Nitrogen) 46 mg/dL (8.4-25.7); Bilirubin, Total 0.8 mg/dL (0.2-1.2); Calc. Creatinine Clearance 0 mL/min (70-130); Calcium 8.6 mg/dL (7.8-10.44); Carbon Dioxide 25 mmol/L (23-31); Chloride 90 mmol/L (98-107); Estimated GFR 14; Globulin 3.6 g/dL (2.4-3.5); Glucose 166 mg/dL (80-115); Potassium 3.8 mmol/L (3.5-5.1); Protein, Total 6.4 g/dL (5.8-8.1); Sodium 125 mmol/L (136-145)
[2022-08-31] MEDS ORDERED: Vancomycin 1 GM/200 ML (FROZEN) BAG ONE (17:24)
[2022-08-31] MEDS ORDERED: Piperacillin/Tazobactam 3.375 GM VIAL ONE (17:24)
[2022-08-31] MEDS ORDERED: Dextrose 5% in Water 1,000 ML IV PRN (18:07)
[2022-08-31] MEDS ORDERED: Acetaminophen 325 MG TAB PO PRN (18:07)
[2022-08-31] MEDS ORDERED: Dextrose 50% Abboject 50 ML SYRINGE SLOW IVP PRN (18:07)
[2022-08-31] MEDS ORDERED: HumaLOG 300 UNITS/3 ML VIAL SC PRN (18:09)
[2022-08-31 18:55] LABS: Hemoglobin A1c 5.7 % (4.0-6.0)
[2022-08-31] MEDS ORDERED: Cefepime 1 GM in Sodium Chloride 0.9% 100 ML IVPB SCH (21:00)
[2022-08-31] MEDS ORDERED: Vancomycin Dialysis Sliding Scale (Wt > 99) FS SCH (21:15)
[2022-08-31] MEDS ORDERED: Vancomycin 1 GM in Premix Bag 1 BAG IVPB SCH (22:00)
[2022-08-31 22:23] LABS: Vancomycin, Trough 20.1 ug/mL
[2022-08-31 22:42] LABS: Critical Call Chem Troponin I RESULT DECREASING; Troponin I 0.372 ng/mL (< 0.028)
[2022-08-31] MEDS: HYDROcodone/Acetaminophen 5/325 mg Tablet PO PRN (23:22)
[2022-08-31] MEDS: Heparin 5,000 UNITS/ML VIAL SC SCH (23:22)
[2022-08-31] MEDS: EPOETIN ALFA-EPBX (ESRD) 10,000 UNIT/ML VIAL SC SCH (23:23)
[2022-09-01] MEDS ORDERED: Furosemide 100 MG/10 ML VIAL SLOW IVP SCH (04:30)
[2022-09-01 05:20] LABS: Anion Gap 16 mmol/L (10-20); BUN (Urea Nitrogen) 29 mg/dL (8.4-25.7); Calc. Creatinine Clearance 37 mL/min (70-130); Calcium 8.2 mg/dL (7.8-10.44); Carbon Dioxide 25 mmol/L (23-31); Chloride 95 mmol/L (98-107); Estimated GFR 21; Glucose 153 mg/dL (80-115); Potassium 3.7 mmol/L (3.5-5.1); Sodium 132 mmol/L (136-145)
[2022-09-01 05:25] LABS: Anisocytosis SLIGHT = 6-15 cells (100X) (0-5/hpf); Band 9 % (5-11); Hemoglobin 7.6 g/dL (14.0-18.0); Lymphocytes 9 % (21-51); MDiff Complete? YES; Mean Corpuscular HGB CONC 32.8 g/dL (32.0-36.0); Mean Corpuscular Volume 94.4 fl (78.0-98.0); Mean Platelet Volume 7.4 fL (7.4-10.4); Monocytes 4 % (0-10); Neutrophil 78 % (42-75); Platelet Count 351 10x3/uL (130-400); Platelet Morphology Comment Appears Adequate; RBC Distribution Width 16.6 % (11.5-14.5); Red Blood Cell (RBC) Count 2.44 mill/uL (4.70-6.10); White Blood Cell (WBC) Count 4.9 10x3/uL (4.8-10.8)
[2022-09-01] MEDS ORDERED: cloNIDine 0.1 MG TAB PO PRN (07:40)
[2022-09-01] MEDS ORDERED: diphenhydrAMINE 25 MG CAP PO PRN (07:40)
[2022-09-01] MEDS ORDERED: Calcium Carbonate 500 MG ChewTAB PO PRN (07:40)
[2022-09-01] MEDS ORDERED: Ipratropium/Albuterol 3 ML NEB NEB PRN (07:40)
[2022-09-01] MEDS: predniSONE 5 MG TAB PO SCH (08:35)
[2022-09-01] MEDS: Amiodarone 200 MG TAB PO SCH (08:36)
[2022-09-01] MEDS: Digoxin 0.25 MG TAB PO SCH (08:36)
[2022-09-01] MEDS: guaiFENesin ER 600 MG TAB PO SCH ×2 (08:36→20:46)
[2022-09-01] MEDS: azaTHIOprine 50 MG TAB PO SCH (08:36)
[2022-09-01] MEDS: Gabapentin 300 MG CAP PO SCH ×2 (08:37→20:46)
[2022-09-01] MEDS: Midodrine HCl 5 MG TAB PO SCH ×3 (08:37→20:46)
[2022-09-01] MEDS: Tacrolimus 1 MG CAP PO SCH ×2 (08:38→20:45)
[2022-09-01] MEDS: Fludrocortisone Acetate 0.1 MG TAB PO SCH (08:38)
[2022-09-01] MEDS: Atorvastatin Calcium 40 MG TAB PO SCH (08:45)
[2022-09-01] MEDS: Bisacodyl 10 MG SUPP PR SCH (08:47)
[2022-09-01] MEDS: Bupropion 100 MG SR TAB PO SCH ×2 (08:47→20:45)
[2022-09-01] MEDS: Heparin 5,000 UNITS/ML VIAL SC SCH ×3 (08:50→20:45)
[2022-09-01] MEDS: Insulin Glargine 30 UNITS/0.3 ML VIAL SC SCH ×2 (08:53→20:47)
[2022-09-01] MEDS ORDERED: Metoclopramide HCl 10 MG TAB PO SCH (09:00)
[2022-09-01] MEDS ORDERED: Non-Formulary Item 1 EACH (Insulin Detemir [Levemir] 100 UNIT/ML Vial) SQ SCH (09:00)
[2022-09-01] MEDS ORDERED: Non-Formulary Item 1 EACH (Metoclopramide Hcl [Reglan] 5 MG Tablet) PO SCH (09:00)
[2022-09-01] MEDS: Ondansetron ODT 4 MG TAB PO PRN (10:08)
[2022-09-01] MEDS: Metoclopramide HCl 10 MG TAB PO SCH ×2 (13:16→16:01)
[2022-09-01] MEDS: traMADol HCl 50 MG TAB PO PRN (20:45)
[2022-09-01] MEDS: Cefepime 0.5 GM in Sodium Chloride 0.9% 100 ML IVPB SCH (22:12)
[2022-09-01] MEDS: HYDROcodone/Acetaminophen 5/325 mg Tablet PO PRN (23:11)
[2022-09-02] MEDS: HYDROcodone/Acetaminophen 5/325 mg Tablet PO PRN ×2 (07:30→23:45)
[2022-09-02 08:05] LABS: Vancomycin, Random 16.4 ug/mL (See Comment)
[2022-09-02] MEDS: Bisacodyl 10 MG SUPP PR SCH (08:35)
[2022-09-02 08:41] LABS: Chloride 97 mmol/L (98-107); Potassium 4.1 mmol/L (3.5-5.1); Sodium 132 mmol/L (136-145)
[2022-09-02] MEDS: Insulin Glargine 30 UNITS/0.3 ML VIAL SC SCH ×2 (08:56→22:00)
[2022-09-02] MEDS: guaiFENesin ER 600 MG TAB PO SCH ×2 (08:57→21:57)
[2022-09-02] MEDS: Metoclopramide HCl 10 MG TAB PO SCH ×3 (08:57→16:20)
[2022-09-02] MEDS: Amiodarone 200 MG TAB PO SCH (08:57)
[2022-09-02] MEDS: Atorvastatin Calcium 40 MG TAB PO SCH (08:57)
[2022-09-02] MEDS: Gabapentin 300 MG CAP PO SCH ×2 (08:57→22:06)
[2022-09-02] MEDS: Midodrine HCl 5 MG TAB PO SCH ×3 (08:57→21:57)
[2022-09-02] MEDS: Fludrocortisone Acetate 0.1 MG TAB PO SCH (08:57)
[2022-09-02] MEDS: Tacrolimus 1 MG CAP PO SCH ×2 (08:57→21:57)
[2022-09-02] MEDS: azaTHIOprine 50 MG TAB PO SCH (08:58)
[2022-09-02] MEDS: Bupropion 100 MG SR TAB PO SCH ×2 (08:58→22:05)
[2022-09-02] MEDS: predniSONE 5 MG TAB PO SCH (08:58)
[2022-09-02] MEDS: Heparin 5,000 UNITS/ML VIAL SC SCH ×3 (08:59→21:58)
[2022-09-02] MEDS ORDERED: valGANciclovir 50 MG/ML ORAL SOLN PO SCH (09:00)
[2022-09-02 09:27] LABS: Calcium 7.8 mg/dL (7.8-10.44); Glucose 149 mg/dL (80-115)
[2022-09-02 09:29] LABS: Anion Gap 15 mmol/L (10-20); Carbon Dioxide 24 mmol/L (23-31)
[2022-09-02 09:31] LABS: BUN (Urea Nitrogen) 41 mg/dL (8.4-25.7); Calc. Creatinine Clearance 30 mL/min (70-130); Estimated GFR 16
[2022-09-02] MEDS ORDERED: Heparin 10,000 UNITS/ 10 ML VIAL ONE (10:13)
[2022-09-02 10:24] LABS: Hemoglobin 7.2 g/dL (14.0-18.0); Mean Corpuscular HGB CONC 32.1 g/dL (32.0-36.0); Mean Corpuscular Hemoglobin 30.5 pg (27.0-31.0); Mean Corpuscular Volume 94.9 fl (78.0-98.0); Mean Platelet Volume 7.6 fL (7.4-10.4); Platelet Count 341 10x3/uL (130-400); RBC Distribution Width 16.8 % (11.5-14.5); Red Blood Cell (RBC) Count 2.37 mill/uL (4.70-6.10); White Blood Cell (WBC) Count 5.9 10x3/uL (4.8-10.8)
[2022-09-02 11:35] LABS: Anisocytosis SLIGHT = 6-15 cells (100X) (0-5/hpf); Band 2 % (5-11); Eosinophils 3 % (0-10); Lymphocytes 14 % (21-51); MDiff Complete? YES; Monocytes 8 % (0-10); Neutrophil 73 % (42-75); Nucleated RBC 1 % (0); Ovalocytes SLIGHT = 2-5 cells (100X) (0-1/hpf); Platelet Morphology Comment Appears Adequate; Polychromasia SLIGHT = 2-3 cells (100X) (0-2/hpf); Vacuoles SLIGHT
[2022-09-02] MEDS ORDERED: Vancomycin 1 GM in Premix Bag 1 BAG IVPB SCH ×2 (17:00→20:00)
[2022-09-02] MEDS: Cefepime 0.5 GM in Sodium Chloride 0.9% 100 ML IVPB SCH (21:58)
[2022-09-02] MEDS: Ondansetron PF 4 MG/2 ML Vial IVP PRN (22:16)
[2022-09-03] MEDS: HYDROcodone/Acetaminophen 5/325 mg Tablet PO PRN (04:16)
[2022-09-03 05:28] LABS: Anion Gap 12 mmol/L (10-20); BUN (Urea Nitrogen) 26 mg/dL (8.4-25.7); Calc. Creatinine Clearance 43 mL/min (70-130); Calcium 8.5 mg/dL (7.8-10.44); Carbon Dioxide 29 mmol/L (23-31); Chloride 96 mmol/L (98-107); Estimated GFR 25; Glucose 186 mg/dL (80-115); Potassium 3.5 mmol/L (3.5-5.1); Sodium 133 mmol/L (136-145)
[2022-09-03 06:09] LABS: Anisocytosis SLIGHT = 6-15 cells (100X) (0-5/hpf); Band 11 % (5-11); Eosinophils 1 % (0-10); Hemoglobin 7.5 g/dL (14.0-18.0); Lymphocytes 15 % (21-51); MDiff Complete? YES; Mean Corpuscular Hemoglobin 30.1 pg (27.0-31.0); Mean Corpuscular Volume 94.1 fl (78.0-98.0); Mean Platelet Volume 7.4 fL (7.4-10.4); Monocytes 10 % (0-10); Neutrophil 63 % (42-75); Platelet Count 326 10x3/uL (130-400); Platelet Morphology Comment Appears Adequate; Red Blood Cell (RBC) Count 2.49 mill/uL (4.70-6.10); White Blood Cell (WBC) Count 5.1 10x3/uL (4.8-10.8)
[2022-09-03] MEDS: Metoclopramide HCl 10 MG TAB PO SCH ×3 (08:42→19:31)
[2022-09-03] MEDS: azaTHIOprine 50 MG TAB PO SCH (09:34)
[2022-09-03] MEDS: Digoxin 0.25 MG TAB PO SCH (09:34)
[2022-09-03] MEDS: Bupropion 100 MG SR TAB PO SCH ×2 (09:34→22:31)
[2022-09-03] MEDS: Tacrolimus 1 MG CAP PO SCH ×2 (09:35→22:31)
[2022-09-03] MEDS: Fludrocortisone Acetate 0.1 MG TAB PO SCH (09:35)
[2022-09-03] MEDS: Gabapentin 300 MG CAP PO SCH ×2 (09:35→22:30)
[2022-09-03] MEDS: Atorvastatin Calcium 40 MG TAB PO SCH (09:35)
[2022-09-03] MEDS: guaiFENesin ER 600 MG TAB PO SCH ×2 (09:35→22:31)
[2022-09-03] MEDS: Insulin Glargine 30 UNITS/0.3 ML VIAL SC SCH ×2 (09:36→22:35)
[2022-09-03] MEDS: Amiodarone 200 MG TAB PO SCH (09:36)
[2022-09-03] MEDS: Heparin 5,000 UNITS/ML VIAL SC SCH ×3 (09:36→22:35)
[2022-09-03] MEDS: Midodrine HCl 5 MG TAB PO SCH ×3 (09:36→22:31)
[2022-09-03] MEDS: predniSONE 5 MG TAB PO SCH (09:36)
[2022-09-03] MEDS: Bisacodyl 10 MG SUPP PR SCH (09:37)
[2022-09-03] MEDS ORDERED: Heparin 10,000 UNITS/ 10 ML VIAL ONE (10:18)
[2022-09-03] MEDS: Ondansetron ODT 4 MG TAB PO PRN (14:28)
[2022-09-03] MEDS: HumaLOG 300 UNITS/3 ML VIAL SC PRN (17:12)
[2022-09-03] MEDS: Ondansetron PF 4 MG/2 ML Vial IVP PRN (19:34)
[2022-09-03] MEDS: Cefepime 0.5 GM in Sodium Chloride 0.9% 100 ML IVPB SCH (22:32)
[2022-09-04] MEDS: HYDROcodone/Acetaminophen 5/325 mg Tablet PO PRN ×3 (03:42→21:21)
[2022-09-04] MEDS: traMADol HCl 50 MG TAB PO PRN (05:31)
[2022-09-04] MEDS ORDERED: Heparin 10,000 UNITS/ 10 ML VIAL ONE (08:25)
[2022-09-04] MEDS: Metoclopramide HCl 10 MG TAB PO SCH ×3 (08:27→17:51)
[2022-09-04] MEDS: Insulin Glargine 30 UNITS/0.3 ML VIAL SC SCH ×2 (09:51→21:22)
[2022-09-04] MEDS: Heparin 5,000 UNITS/ML VIAL SC SCH ×3 (09:51→21:23)
[2022-09-04] MEDS: Midodrine HCl 5 MG TAB PO SCH ×3 (09:52→21:21)
[2022-09-04] MEDS: Tacrolimus 1 MG CAP PO SCH ×2 (09:52→21:21)
[2022-09-04] MEDS: Atorvastatin Calcium 40 MG TAB PO SCH (09:52)
[2022-09-04] MEDS: Gabapentin 300 MG CAP PO SCH ×2 (09:52→21:21)
[2022-09-04] MEDS: Fludrocortisone Acetate 0.1 MG TAB PO SCH (09:52)
[2022-09-04] MEDS: azaTHIOprine 50 MG TAB PO SCH (09:52)
[2022-09-04] MEDS: Amiodarone 200 MG TAB PO SCH (09:52)
[2022-09-04] MEDS: predniSONE 5 MG TAB PO SCH (09:52)
[2022-09-04] MEDS: Bisacodyl 10 MG SUPP PR SCH (09:52)
[2022-09-04] MEDS: guaiFENesin ER 600 MG TAB PO SCH ×2 (09:52→21:21)
[2022-09-04] MEDS: Bupropion 100 MG SR TAB PO SCH ×2 (09:53→21:21)
[2022-09-04] MEDS: Cefepime 0.5 GM, Admixture Fee 1 EACH in Sodium Chloride 0.9% 100 ML IVPB SCH (21:22)
[2022-09-05 08:10] LABS: Vancomycin, Random 12.3 ug/mL (See Comment)
[2022-09-05] MEDS: Metoclopramide HCl 10 MG TAB PO SCH ×3 (08:10→17:40)
[2022-09-05] MEDS: predniSONE 5 MG TAB PO SCH (08:11)
[2022-09-05 09:07] LABS: Hemoglobin 7.3 g/dL (14.0-18.0); Mean Corpuscular HGB CONC 31.7 g/dL (32.0-36.0); Mean Corpuscular Hemoglobin 30.1 pg (27.0-31.0); Mean Corpuscular Volume 94.8 fl (78.0-98.0); Mean Platelet Volume 7.3 fL (7.4-10.4); Platelet Count 264 10x3/uL (130-400); Red Blood Cell (RBC) Count 2.43 mill/uL (4.70-6.10); White Blood Cell (WBC) Count 4.6 10x3/uL (4.8-10.8)
[2022-09-05 09:23] LABS: Anion Gap 11 mmol/L (10-20); BUN (Urea Nitrogen) 17 mg/dL (8.4-25.7); Calc. Creatinine Clearance 54 mL/min (70-130); Calcium 8.6 mg/dL (7.8-10.44); Carbon Dioxide 28 mmol/L (23-31); Chloride 97 mmol/L (98-107); Estimated GFR 34; Glucose 143 mg/dL (80-115); Potassium 3.3 mmol/L (3.5-5.1); Sodium 133 mmol/L (136-145)
[2022-09-05] MEDS ORDERED: Heparin 10,000 UNITS/ 10 ML VIAL ONE (09:39)
[2022-09-05 10:05] LABS: Band 2 % (5-11); Hypochromia SLIGHT = 6-15 cells (100X) (0-5/hpf); Lymphocytes 16 % (21-51); MDiff Complete? YES; Monocytes 12 % (0-10); Neutrophil 70 % (42-75); Platelet Morphology Comment Appears Adequate; Polychromasia SLIGHT = 2-3 cells (100X) (0-2/hpf)
[2022-09-05] MEDS: Heparin 5,000 UNITS/ML VIAL SC SCH ×3 (12:22→21:44)
[2022-09-05] MEDS: Midodrine HCl 5 MG TAB PO SCH ×3 (12:23→21:42)
[2022-09-05] MEDS: guaiFENesin ER 600 MG TAB PO SCH ×2 (15:07→21:42)
[2022-09-05] MEDS: Atorvastatin Calcium 40 MG TAB PO SCH (15:08)
[2022-09-05] MEDS: Fludrocortisone Acetate 0.1 MG TAB PO SCH (15:09)
[2022-09-05] MEDS: azaTHIOprine 50 MG TAB PO SCH (15:10)
[2022-09-05] MEDS: Amiodarone 200 MG TAB PO SCH (15:16)
[2022-09-05] MEDS: Tacrolimus 1 MG CAP PO SCH ×2 (15:16→21:42)
[2022-09-05] MEDS: Bisacodyl 10 MG SUPP PR SCH (15:17)
[2022-09-05] MEDS: Digoxin 0.25 MG TAB PO SCH (16:23)
[2022-09-05] MEDS: Bupropion 100 MG SR TAB PO SCH ×2 (16:23→21:00)
[2022-09-05] MEDS: Gabapentin 300 MG CAP PO SCH ×2 (16:25→21:42)
[2022-09-05] MEDS: Insulin Glargine 30 UNITS/0.3 ML VIAL SC SCH ×2 (16:25→21:43)
[2022-09-05] MEDS ORDERED: VANCOMYCIN 1.25 GM/250 ML BAG 1.25 GM in Premix Bag 1 BAG IVPB SCH (17:00)
[2022-09-05] MEDS: Cefepime 0.5 GM, Admixture Fee 1 EACH in Sodium Chloride 0.9% 100 ML IVPB SCH (21:47)
[2022-09-06] MEDS ORDERED: Heparin 10,000 UNITS/ 10 ML VIAL ONE (08:25)
[2022-09-06] MEDS: Metoclopramide HCl 10 MG TAB PO SCH ×3 (08:53→16:50)
[2022-09-06] MEDS: Midodrine HCl 5 MG TAB PO SCH ×3 (08:54→20:55)
[2022-09-06] MEDS: Heparin 5,000 UNITS/ML VIAL SC SCH ×3 (08:54→20:56)
[2022-09-06] MEDS: Insulin Glargine 30 UNITS/0.3 ML VIAL SC SCH ×2 (11:58→20:55)
[2022-09-06] MEDS: traMADol HCl 50 MG TAB PO PRN (13:35)
[2022-09-06] MEDS: Gabapentin 300 MG CAP PO SCH ×2 (13:36→20:54)
[2022-09-06] MEDS: guaiFENesin ER 600 MG TAB PO SCH ×2 (13:36→20:55)
[2022-09-06] MEDS: Atorvastatin Calcium 40 MG TAB PO SCH (13:37)
[2022-09-06] MEDS: predniSONE 5 MG TAB PO SCH (13:37)
[2022-09-06] MEDS: Amiodarone 200 MG TAB PO SCH (13:37)
[2022-09-06] MEDS: azaTHIOprine 50 MG TAB PO SCH (13:39)
[2022-09-06] MEDS: Bupropion 100 MG SR TAB PO SCH ×2 (13:39→20:58)
[2022-09-06] MEDS: Bisacodyl 10 MG SUPP PR SCH (13:39)
[2022-09-06] MEDS: Fludrocortisone Acetate 0.1 MG TAB PO SCH (13:40)
[2022-09-06] MEDS: Tacrolimus 1 MG CAP PO SCH ×2 (13:40→20:55)
[2022-09-06 15:23] VITALS: BMI 29.4
[2022-09-06] MEDS: HumaLOG 300 UNITS/3 ML VIAL SC PRN (18:13)
[2022-09-06] MEDS: Cefepime 0.5 GM, Admixture Fee 1 EACH in Sodium Chloride 0.9% 100 ML IVPB SCH (20:58)
[2022-09-07 07:05] LABS: Vancomycin, Random 15.1 ug/mL (See Comment)
[2022-09-07] MEDS ORDERED: Heparin 10,000 UNITS/ 10 ML VIAL ONE (08:39)
[2022-09-07] MEDS: Metoclopramide HCl 10 MG TAB PO SCH ×3 (08:42→17:17)
[2022-09-07] MEDS: traMADol HCl 50 MG TAB PO PRN ×2 (08:43→15:20)
[2022-09-07] MEDS: Gabapentin 300 MG CAP PO SCH ×4 (08:44→23:21)
[2022-09-07] MEDS: Heparin 5,000 UNITS/ML VIAL SC SCH ×3 (08:46→23:24)
[2022-09-07] MEDS: Midodrine HCl 5 MG TAB PO SCH ×3 (08:46→23:24)
[2022-09-07] MEDS: Insulin Glargine 30 UNITS/0.3 ML VIAL SC SCH ×2 (08:46→23:30)
[2022-09-07] MEDS: Ondansetron PF 4 MG/2 ML Vial IVP PRN ×2 (08:50→22:47)
[2022-09-07 09:40] LABS: Hemoglobin 8.3 g/dL (14.0-18.0); Mean Corpuscular HGB CONC 31.5 g/dL (32.0-36.0); Mean Corpuscular Hemoglobin 29.6 pg (27.0-31.0); Mean Corpuscular Volume 94.2 fl (78.0-98.0); Mean Platelet Volume 7.6 fL (7.4-10.4); Platelet Count 183 10x3/uL (130-400); RBC Distribution Width 17.6 % (11.5-14.5); Red Blood Cell (RBC) Count 2.79 mill/uL (4.70-6.10); White Blood Cell (WBC) Count 2.7 10x3/uL (4.8-10.8)
[2022-09-07 10:17] LABS: Anion Gap 15 mmol/L (10-20); BUN (Urea Nitrogen) 18 mg/dL (8.4-25.7); Calc. Creatinine Clearance 53 mL/min (70-130); Calcium 8.1 mg/dL (7.8-10.44); Carbon Dioxide 24 mmol/L (23-31); Chloride 99 mmol/L (98-107); Estimated GFR 33; Glucose 206 mg/dL (80-115); Sodium 135 mmol/L (136-145)
[2022-09-07 10:51] LABS: Lymphocytes 16 % (21-51); MDiff Complete? YES; Monocytes 16 % (0-10); Neutrophil 68 % (42-75); RBC Morphology Normal
[2022-09-07] MEDS: Bisacodyl 10 MG SUPP PR SCH (14:25)
[2022-09-07] MEDS: Tacrolimus 1 MG CAP PO SCH ×2 (15:16→23:22)
[2022-09-07] MEDS: azaTHIOprine 50 MG TAB PO SCH (15:16)
[2022-09-07] MEDS: predniSONE 5 MG TAB PO SCH (15:16)
[2022-09-07] MEDS: Fludrocortisone Acetate 0.1 MG TAB PO SCH (15:16)
[2022-09-07] MEDS: Amiodarone 200 MG TAB PO SCH (15:16)
[2022-09-07] MEDS: guaiFENesin ER 600 MG TAB PO SCH ×2 (15:16→23:21)
[2022-09-07] MEDS: Digoxin 0.25 MG TAB PO SCH (15:17)
[2022-09-07] MEDS: Bupropion 100 MG SR TAB PO SCH ×2 (15:17→23:23)
[2022-09-07] MEDS: Atorvastatin Calcium 40 MG TAB PO SCH (15:17)
[2022-09-07] MEDS ORDERED: Vancomycin 1 GM in Premix Bag 1 BAG IVPB SCH (17:00)
[2022-09-07] MEDS: Cefepime 0.5 GM, Admixture Fee 1 EACH in Sodium Chloride 0.9% 100 ML IVPB SCH (20:47)
[2022-09-08] MEDS: EPOETIN ALFA-EPBX (ESRD) 10,000 UNIT/ML VIAL SC SCH (00:04)
[2022-09-08] MEDS: Bupropion 100 MG SR TAB PO SCH (09:05)
[2022-09-08] MEDS: Tacrolimus 1 MG CAP PO SCH (09:05)
[2022-09-08] MEDS: Bisacodyl 10 MG SUPP PR SCH (09:05)
[2022-09-08] MEDS: Atorvastatin Calcium 40 MG TAB PO SCH (09:05)
[2022-09-08] MEDS: azaTHIOprine 50 MG TAB PO SCH (09:06)
[2022-09-08] MEDS: Midodrine HCl 5 MG TAB PO SCH ×2 (09:06→17:40)
[2022-09-08] MEDS: Amiodarone 200 MG TAB PO SCH (09:06)
[2022-09-08] MEDS: Metoclopramide HCl 10 MG TAB PO SCH ×3 (09:06→18:29)
[2022-09-08] MEDS: guaiFENesin ER 600 MG TAB PO SCH (09:06)
[2022-09-08] MEDS: Heparin 5,000 UNITS/ML VIAL SC SCH ×2 (09:07→17:39)
[2022-09-08] MEDS: Gabapentin 300 MG CAP PO SCH (09:07)
[2022-09-08] MEDS: Fludrocortisone Acetate 0.1 MG TAB PO SCH (09:07)
[2022-09-08] MEDS: predniSONE 5 MG TAB PO SCH (09:07)
[2022-09-08] MEDS: Insulin Glargine 30 UNITS/0.3 ML VIAL SC SCH (09:08)
[2022-09-08 11:54] LABS: Anion Gap 12 mmol/L (10-20); BUN (Urea Nitrogen) 20 mg/dL (8.4-25.7); Calc. Creatinine Clearance 49 mL/min (70-130); Calcium 8.4 mg/dL (7.8-10.44); Carbon Dioxide 28 mmol/L (23-31); Chloride 94 mmol/L (98-107); Estimated GFR 31; Glucose 188 mg/dL (80-115); Potassium 3.1 mmol/L (3.5-5.1); Sodium 131 mmol/L (136-145)
[2022-09-08 11:59] LABS: Hemoglobin 6.9 g/dL (14.0-18.0); Mean Corpuscular HGB CONC 32.4 g/dL (32.0-36.0); Mean Corpuscular Hemoglobin 30.6 pg (27.0-31.0); Mean Corpuscular Volume 94.5 fl (78.0-98.0); Mean Platelet Volume 7.8 fL (7.4-10.4); Platelet Count 225 10x3/uL (130-400); RBC Distribution Width 17.6 % (11.5-14.5); Red Blood Cell (RBC) Count 2.26 mill/uL (4.70-6.10); White Blood Cell (WBC) Count 3.7 10x3/uL (4.8-10.8)
[2022-09-08 12:02] VITALS: BP 129/59; TEMP 98.9
[2022-09-08] MEDS ORDERED: EPINEPHrine 1 MG/10 ML Abboject SYRINGE ONE (15:40)
[2022-09-08] MEDS ORDERED: Calcium Chloride 1 GM/10 ML Abboject SYRINGE ONE (15:40)
[2022-09-08] MEDS ORDERED: Amiodarone 150 MG/3 ML VIAL ONE (15:40)
[2022-09-08] MEDS ORDERED: Dextrose 50% Abboject 50 ML SYRINGE ONE (15:40)
[2022-09-08] MEDS ORDERED: Sodium Bicarb 50 MEQ/50 ML Abboject 8.4% SYRINGE ONE (15:40)
== END 2022-09-08 21:20 | disposition expired | DRG 564 ==
LOC: ERS 14:59 → 2NO 18:25
PROVIDERS: ADMIT Hospitalist; ATTEND Hospitalist
PROC: 5A1D70Z Performance of Urinary Filtration, Intermittent, Less than 6 Hours Per Day (ICD-10-PCS; principal; 2022-08-31)
PROC: 5A12012 Performance of Cardiac Output, Single, Manual (ICD-10-PCS; 2022-08-31)
PROC: 3E033XZ Introduction of Vasopressor into Peripheral Vein, Percutaneous Approach (ICD-10-PCS; 2022-08-31)
PROC: 0BH17EZ Insertion of Endotracheal Airway into Trachea, Via Natural or Artificial Opening (ICD-10-PCS; 2022-08-31)
PROC: 5A2204Z Restoration of Cardiac Rhythm, Single (ICD-10-PCS; 2022-08-31)
DX: T87.43 Infection of amputation stump, right lower extremity (principal); I50.43 Acute on chronic combined systolic (congestive) and diastolic (congestive) heart failure; N18.6 End stage renal disease; J96.01 Acute respiratory failure with hypoxia; I13.2 Hypertensive heart and chronic kidney disease with heart failure and with stage 5 chronic kidney disease, or end stage renal disease; T86.19 Other complication of kidney transplant; L03.115 Cellulitis of right lower limb; E87.1 Hypo-osmolality and hyponatremia; I48.20 Chronic atrial fibrillation, unspecified; Z20.822 Contact with and (suspected) exposure to COVID-19; E87.6 Hypokalemia; Z53.20 Procedure and treatment not carried out because of patient's decision for unspecified reasons; I25.5 Ischemic cardiomyopathy; E11.22 Type 2 diabetes mellitus with diabetic chronic kidney disease; I25.10 Atherosclerotic heart disease of native coronary artery without angina pectoris; E78.5 Hyperlipidemia, unspecified; D63.1 Anemia in chronic kidney disease; E11.43 Type 2 diabetes mellitus with diabetic autonomic (poly)neuropathy; Y83.0 Surgical operation with transplant of whole organ as the cause of abnormal reaction of the patient, or of later complication, without mention of misadventure at the time of the procedure; K31.84 Gastroparesis; Y83.5 Amputation of limb(s) as the cause of abnormal reaction of the patient, or of later complication, without mention of misadventure at the time of the procedure; N31.9 Neuromuscular dysfunction of bladder, unspecified; I46.2 Cardiac arrest due to underlying cardiac condition; Z99.2 Dependence on renal dialysis; Z95.1 Presence of aortocoronary bypass graft; Z89.511 Acquired absence of right leg below knee; Z79.899 Other long term (current) drug therapy; Z79.4 Long term (current) use of insulin; Z86.16 Personal history of COVID-19
CPT/HCPCS: 36415; 36416; 71045; 80048; 80202; 82553; 83036; 83605; 83880; 84484; 85025; 85027; 85652; 86140; 90935; 94760; 96365; 96375; 97139; G0257; J0692; J1644; J1815; J2405; J2543; J3370; J3370-JW; J3490; J7500; J7507; J7512; Q0162; Q5105; U0003; U0005